=== PATIENT | male | born 1940 | race Caucasian/White ===

== ENCOUNTER 2017-11-11 15:12 | Inpatient (IN) | payer OTHER ==
[~2017-11-11] VITALS: Ht 172.7 cm; Wt 83.9 kg
[2017-11-11 16:21] VITALS: BP_SYST 131
[2017-11-11] MEDS ORDERED: MEMA10TA PO (16:43)
[2017-11-11] MEDS ORDERED: FAMO40TA71 PO (16:43)
[2017-11-11 16:50] VITALS: BP_SYST 131
[2017-11-11 19:11] LABS: EOSINOPHILS # (AUTO) 0.2 K/uL (0.0-0.4); MEAN CORPUSCULAR HEMOGLOBIN 32 pg (27-31); MEAN CORPUSCULAR HGB CONC 33 % (32-36); RED CELL DISTRIBUTION WIDTH 14.4 % (9.0-15.0)
[2017-11-11 19:13] LABS: BASOPHILS # (AUTO) 0.3 K/uL (0.0-0.2); BASOPHILS % (AUTO) 3.1 % (0.0-2.0); EOSINOPHILS % (AUTO) 2.6 % (0.0-4.0); HEMATOCRIT 42.2 % (36-54); LYMPHOCYTES # (AUTO) 1.4 K/uL (1.0-5.5); LYMPHOCYTES % (AUTO) 17.2 % (20.5-51.5); MEAN CORPUSCULAR VOLUME 96 fL (79.0-98.0); MONOCYTES # (AUTO) 0.7 K/uL (0.0-1.0); MONOCYTES % (AUTO) 8.7 % (1.7-9.3); NEUTROPHILS # (AUTO) 5.5 K/uL (1.8-7.7); NEUTROPHILS % (AUTO) 68.4 % (40.0-70.0); PLATELET COUNT (AUTO) 160 K/uL (130-430); RED BLOOD CELL COUNT(AUTO) 4.38 MIL/uL (4.2-6.2); WHITE BLOOD COUNT (AUTO) 8.1 K/uL (4.8-10.8)
[2017-11-11 19:28] LABS: ANION GAP 8 (5-15); CALCIUM 8.8 mg/dL (8.4-11.0); CHLORIDE 108 mmol/L (98-107); CREATININE 1.06 mg/dL (0.55-1.30); GLUCOSE 108 mg/dL (70-99); POTASSIUM 3.9 mmol/L (3.5-5.1); SODIUM SERUM 141 mmol/L (136-145); UREA NITROGEN, BLOOD 17 mg/dL (8-21)
[2017-11-11] MEDS ORDERED: LevALBUTEROL HCL 1.25 MG/0.5 ML *CONC.* VIAL.NEB (XOPENEX CONC.) INH PRN (19:30)
[2017-11-11 19:33] LABS: ALANINE AMINOTRANSFERASE 30 U/L (12-78); ALBUMIN 3.4 g/dL (3.4-4.8); ASPARTATE AMINOTRANSFERASE 27 U/L (10-37); TOTAL BILIRUBIN 1.1 mg/dL (0.0-1.0)
[2017-11-11] MEDS ORDERED: ACETAMINOPHEN 325 MG TABLET PO PRN (19:45)
[2017-11-11 20:00] VITALS: BP_SYST 133
[2017-11-11] MEDS: cefTRIAXone 1 GM in D5W 50 ML IV SCH (20:25)
[2017-11-11] MEDS: D5/0.45 NS 1,000 ML IV SCH (20:25)
[2017-11-11] MEDS: MEMANTINE HCL 5 MG TABLET PO SCH (20:34)
[2017-11-11] MEDS: AZITHROMYCIN 500 MG in NS 250 ML IV SCH (21:27)
[2017-11-11] MEDS: LevALBUTEROL HCL 1.25 MG/0.5 ML *CONC.* VIAL.NEB (XOPENEX CONC.) INH SCH (23:07)
[2017-11-11 23:15] VITALS: BP_SYST 131
[2017-11-12 01:05] VITALS: BP_SYST 136
[2017-11-12] MEDS: METOPROLOL TARTRATE 50 MG TABLET PO SCH ×3 (02:56→20:45)
[2017-11-12] MEDS ORDERED: METOPROLOL TARTRATE 50 MG TABLET ONE (02:59)
[2017-11-12] MEDS: LevALBUTEROL HCL 1.25 MG/0.5 ML *CONC.* VIAL.NEB (XOPENEX CONC.) INH SCH ×3 (07:27→22:50)
[2017-11-12 07:50] VITALS: BP_SYST 113
[2017-11-12] MEDS: D5/0.45 NS 1,000 ML IV SCH (09:30)
[2017-11-12] MEDS: FAMOTIDINE 20 MG TABLET PO SCH (09:32)
[2017-11-12] MEDS: MEMANTINE HCL 5 MG TABLET PO SCH ×2 (09:32→20:45)
[2017-11-12] MEDS: ENOXAPARIN SODIUM 40 MG/0.4 ML SYRINGE SUBCUT SCH (09:39)
[2017-11-12 12:00] VITALS: BP_SYST 128
[2017-11-12 16:47] VITALS: BP_SYST 130
[2017-11-12] MEDS: cefTRIAXone 1 GM in D5W 50 ML IV SCH (20:45)
[2017-11-12] MEDS: AZITHROMYCIN 500 MG in NS 250 ML IV SCH (22:21)
[2017-11-13 00:41] VITALS: BP_SYST 119
[2017-11-13] MEDS: D5/0.45 NS 1,000 ML IV SCH ×2 (02:44→15:21)
[2017-11-13] MEDS: LevALBUTEROL HCL 1.25 MG/0.5 ML *CONC.* VIAL.NEB (XOPENEX CONC.) INH SCH ×3 (07:23→23:27)
[2017-11-13 08:00] VITALS: BP_SYST 138
[2017-11-13] MEDS: FAMOTIDINE 20 MG TABLET PO SCH (09:05)
[2017-11-13] MEDS: METOPROLOL TARTRATE 50 MG TABLET PO SCH ×2 (09:05→20:36)
[2017-11-13] MEDS: MEMANTINE HCL 5 MG TABLET PO SCH ×2 (09:05→20:36)
[2017-11-13] MEDS: ENOXAPARIN SODIUM 40 MG/0.4 ML SYRINGE SUBCUT SCH (09:09)
[2017-11-13 12:37] VITALS: BP_SYST 144
[2017-11-13 16:25] VITALS: BP_SYST 141
[2017-11-13] MEDS: cefTRIAXone 1 GM in D5W 50 ML IV SCH (20:37)
[2017-11-13] MEDS: AZITHROMYCIN 500 MG in NS 250 ML IV SCH (20:40)
[2017-11-13 23:30] VITALS: BP_SYST 135
[2017-11-14] MEDS: D5/0.45 NS 1,000 ML IV SCH ×2 (04:07→14:10)
[2017-11-14 07:08] LABS: BASOPHILS % (AUTO) 0.6 % (0.0-2.0); EOSINOPHILS # (AUTO) 0.4 K/uL (0.0-0.4); HEMATOCRIT 37.6 % (36-54); HEMOGLOBIN 12.8 g/dL (14.0-18.0); LYMPHOCYTES # (AUTO) 1.5 K/uL (1.0-5.5); LYMPHOCYTES % (AUTO) 19.7 % (20.5-51.5); MEAN CORPUSCULAR HEMOGLOBIN 33 pg (27-31); MEAN CORPUSCULAR HGB CONC 34 % (32-36); MEAN CORPUSCULAR VOLUME 96 fL (79.0-98.0); MONOCYTES # (AUTO) 0.7 K/uL (0.0-1.0); MONOCYTES % (AUTO) 9.2 % (1.7-9.3); NEUTROPHILS # (AUTO) 4.8 K/uL (1.8-7.7); NEUTROPHILS % (AUTO) 64.5 % (40.0-70.0); PLATELET COUNT (AUTO) 156 K/uL (130-430); RED BLOOD CELL COUNT(AUTO) 3.92 MIL/uL (4.2-6.2); RED CELL DISTRIBUTION WIDTH 14.1 % (9.0-15.0); WHITE BLOOD COUNT (AUTO) 7.4 K/uL (4.8-10.8)
[2017-11-14 07:30] LABS: ALANINE AMINOTRANSFERASE 19 U/L (12-78); ALBUMIN 2.4 g/dL (3.4-4.8); ANION GAP 6 (5-15); ASPARTATE AMINOTRANSFERASE 16 U/L (10-37); CALCIUM 8.1 mg/dL (8.4-11.0); CHLORIDE 106 mmol/L (98-107); GLUCOSE 95 mg/dL (70-99); POTASSIUM 3.3 mmol/L (3.5-5.1); SODIUM SERUM 138 mmol/L (136-145); TOTAL BILIRUBIN 0.8 mg/dL (0.0-1.0); UREA NITROGEN, BLOOD 8 mg/dL (8-21)
[2017-11-14] MEDS: LevALBUTEROL HCL 1.25 MG/0.5 ML *CONC.* VIAL.NEB (XOPENEX CONC.) INH SCH ×2 (07:37→17:01)
[2017-11-14 08:00] VITALS: BP_SYST 115
[2017-11-14] MEDS: MEMANTINE HCL 5 MG TABLET PO SCH (09:19)
[2017-11-14] MEDS: FAMOTIDINE 20 MG TABLET PO SCH (09:19)
[2017-11-14] MEDS: METOPROLOL TARTRATE 50 MG TABLET PO SCH (09:20)
[2017-11-14] MEDS: ENOXAPARIN SODIUM 40 MG/0.4 ML SYRINGE SUBCUT SCH (09:20)
[2017-11-14 12:58] VITALS: BP_SYST 117
[2017-11-14 15:03] VITALS: BP_SYST 117
[2017-11-14 16:41] VITALS: BP_SYST 117
== END 2017-11-14 18:43 | DRG 190 ==
LOC: SED 15:12 → EDSTATUS 16:39 → SMU 16:41 → STU 16:51
PROVIDERS: ADMIT Family Medicine; ATTEND Family Medicine
DX: J44.0 Chronic obstructive pulmonary disease with (acute) lower respiratory infection (principal); J18.9 Pneumonia, unspecified organism; M19.90 Unspecified osteoarthritis, unspecified site; I27.20 Pulmonary hypertension, unspecified; K21.9 Gastro-esophageal reflux disease without esophagitis; J44.1 Chronic obstructive pulmonary disease with (acute) exacerbation; F03.90 Unspecified dementia, unspecified severity, without behavioral disturbance, psychotic disturbance, mood disturbance, and anxiety; Z86.73 Personal history of transient ischemic attack (TIA), and cerebral infarction without residual deficits; Z87.891 Personal history of nicotine dependence
CPT/HCPCS: 36415; 70450-TC; 71045; 80053; 85025; 93005; 93306; 94640; 94760; 97110-GP; 97530-GP; J0456; J0696; J1650; J7050; J7060; J7612

== ENCOUNTER 2018-08-04 13:23 | Inpatient (IN) | payer OTHER, MEDICAID ==
[~2018-08-04] VITALS: Ht 182.9 cm; Wt 89.8 kg
[2018-08-04] VITALS (10 sets, daily range): BP systolic 94–126
[~2018-08-04 13:23] MED LIST: FAMO40TA71 PO; MEMA10TA PO
[2018-08-04] MEDS ORDERED: NS 1000 ML IV.SOLN IV ONE (13:30)
[2018-08-04] MEDS ORDERED: IPRATROPIUM/ALBUTEROL SULFATE 3 ML AMPUL.NEB (DUONEB) INH ONE (13:30)
[2018-08-04] MEDS ORDERED: DILTIAZEM HCL 25 MG/5 ML VIAL IVP ONE (13:30)
[2018-08-04] MEDS ORDERED: ADENOSINE 6MG/2ML VIAL IVP ONE (13:45)
[2018-08-04] MEDS ORDERED: RISP1TAB27 GT (13:55)
[2018-08-04] MEDS ORDERED: DOCU-144 GT (13:55)
[2018-08-04] MEDS ORDERED: LIP40 GT (13:55)
[2018-08-04] MEDS ORDERED: ASCO500W7 GT (13:55)
[2018-08-04] MEDS ORDERED: MULT-1100 GT (13:55)
[2018-08-04] MEDS ORDERED: ZINC220T GT (13:55)
[2018-08-04] MEDS ORDERED: METO25TA3 GT (13:55)
[2018-08-04] MEDS ORDERED: HYT1 GT (13:55)
[2018-08-04] MEDS ORDERED: ASA81 GT (13:55)
[2018-08-04] MEDS ORDERED: OLAN2.5T29 GT ×2 (13:55→16:00)
[2018-08-04] MEDS ORDERED: L. A1CAP12 GT (13:55)
[2018-08-04] MEDS ORDERED: VANCOMYCIN HCL 1,000 MG in NS 250 ML IV ONE (14:15)
[2018-08-04] MEDS ORDERED: PIPERACILLIN/TAZO 3.375 GM in NS 50 ML IV ONE (14:15)
[2018-08-04] MEDS ORDERED: NACL 0.9% 1,000 ML IV ONE ×2 (14:15→15:15)
[2018-08-04] MEDS ORDERED: PIPERACILLIN/TAZOBACTAM 3.375 GM/VIAL (ZOSYN) IV ONE ×2 (14:27→14:52)
[2018-08-04] MEDS ORDERED: VANCOMYCIN HCL 1000 MG/VIAL IV ONE ×2 (14:27→14:52)
[2018-08-04 14:42] LABS: HEMATOCRIT 32.3 % (36-54); HEMOGLOBIN 10.6 g/dL (14.0-18.0); MEAN CORPUSCULAR HEMOGLOBIN 32 pg (27-31); MEAN CORPUSCULAR HGB CONC 33 % (32-36); MEAN CORPUSCULAR VOLUME 96 fL (79.0-98.0); PLATELET COUNT (AUTO) 135 K/uL (130-430); RED BLOOD CELL COUNT(AUTO) 3.36 MIL/uL (4.2-6.2); WHITE BLOOD COUNT (AUTO) 19.5 K/uL (4.8-10.8)
[2018-08-04 14:45] LABS: ANION GAP 9 (5-15); CHLORIDE 102 mmol/L (98-107); CREATININE 1.18 mg/dL (0.55-1.30); GLUCOSE 106 mg/dL (70-99); POTASSIUM 3.9 mmol/L (3.5-5.1); SODIUM SERUM 135 mmol/L (136-145); UREA NITROGEN, BLOOD 32 mg/dL (8-21)
[2018-08-04 14:51] LABS: ALANINE AMINOTRANSFERASE 74 U/L (12-78); ALBUMIN 1.7 g/dL (3.4-4.8); ASPARTATE AMINOTRANSFERASE 48 U/L (10-37); TOTAL BILIRUBIN 0.6 mg/dL (0.0-1.0)
[2018-08-04] MEDS ORDERED: ACETAMINOPHEN 650 MG/20.3 ML UDC GT ONE (15:00)
[2018-08-04 15:14] LABS: BLOOD, URINE 2+ (NEGATIVE); CLARITY/URINE HAZY (CLEAR); COLOR,URINE YELLOW (YELLOW); GLUCOSE,URINE NEGATIVE (NEGATIVE); KETONES,URINE TRACE (NEGATIVE); LEUKOCYTE ESTERASE ,URINE TRACE (NEGATIVE); NITRITE, URINE NEGATIVE (NEGATIVE); PH,URINE 6.5 (5.0-8.0); PROTEIN URINE 2+ (NEGATIVE)
[2018-08-04 15:22] LABS: ATYPICAL LYMPHOCYTES % 1 % (0-0); BAND % (MANUAL) 11 % (0-6); BASOPHILS % (MANUAL) 0 % (0-2); EOSINOPHILS % (MANUAL) 0 % (0-7); LYMPHOCYTES % (MANUAL) 6 % (20-46); MONOCYTES % (MANUAL) 9 % (0-11)
[2018-08-04] MEDS ORDERED: NOREPINEPHRINE BITARTRATE 4 MG in NS 246 ML IV ONE (15:30)
[2018-08-04 15:31] LABS: BACTERIA,URINE FEW /HPF (None Seen); BILIRUBIN,URINE 1+ (NEGATIVE)
[2018-08-04 15:32] LABS: COARSE GRANULAR CASTS,URINE 0-10 /LPF (None Seen); MUCUS,URINE None Seen /LPF (None Seen)
[2018-08-04] MEDS ORDERED: NOREPINEPHRINE 4 MG/4 ML VIAL IV ONE (15:32)
[2018-08-04] MEDS ORDERED: METO25TA6 GT (16:00)
[2018-08-04] MEDS ORDERED: PIPERACILLIN/TAZO 3.375 GM in NS 50 ML IV SCH (18:00)
[2018-08-04] MEDS ORDERED: LevALBUTEROL HCL 1.25 MG/0.5 ML *CONC.* VIAL.NEB (XOPENEX CONC.) INH PRN (18:15)
[2018-08-04] MEDS ORDERED: ACETAMINOPHEN 650 MG/20.3 ML UDC GT PRN (18:15)
[2018-08-04] MEDS: methylPREDNISolone SOD SUCC/PF 62.5 MG/ML VIAL IVP SCH (18:23)
[2018-08-04] MEDS: D5NS 1,000 ML IV SCH ×2 (18:25→23:00)
[2018-08-04] MEDS: LevALBUTEROL HCL 1.25 MG/0.5 ML *CONC.* VIAL.NEB (XOPENEX CONC.) INH SCH (19:46)
[2018-08-04] MEDS: NOREPINEPHRINE BITARTRATE 4 MG in NS 246 ML IV SCH ×2 (20:17→20:31)
[2018-08-04] MEDS: DOCUSATE SODIUM 100 MG/10 ML UDC GT SCH (20:33)
[2018-08-04] MEDS: ATORVASTATIN 20 MG TABLET GT SCH (20:34)
[2018-08-04] MEDS: ASCORBIC ACID 500 MG TABLET GT SCH (20:35)
[2018-08-04] MEDS: METOPROLOL TARTRATE 25 MG TABLET GT SCH (20:35)
[2018-08-04] MEDS: ENOXAPARIN SODIUM 40 MG/0.4 ML SYRINGE SUBCUT SCH (20:36)
[2018-08-04] MEDS ORDERED: OLANZapine 2.5 MG TABLET GT SCH ×2 (21:00)
[2018-08-04] MEDS ORDERED: TERAZOSIN HCL 1 MG CAPSULE (HYTRIN) GT SCH (21:00)
[2018-08-04] MEDS: ALBUMIN HUMAN 25% 50 ML IV SCH (23:01)
[2018-08-04] MEDS: PIPERACILLIN/TAZO 3.375 GM in NS 50 ML IV SCH (23:02)
[2018-08-05] VITALS (21 sets, daily range): BP systolic 88–117
[2018-08-05] MEDS: methylPREDNISolone SOD SUCC/PF 62.5 MG/ML VIAL IVP SCH ×2 (00:03→05:41)
[2018-08-05] MEDS: LevALBUTEROL HCL 1.25 MG/0.5 ML *CONC.* VIAL.NEB (XOPENEX CONC.) INH SCH ×4 (00:45→19:45)
[2018-08-05] MEDS: NOREPINEPHRINE BITARTRATE 4 MG in NS 246 ML IV SCH ×3 (01:58→21:10)
[2018-08-05] MEDS: VANCOMYCIN HCL 1,000 MG in NS 250 ML IV SCH ×2 (02:36→14:11)
[2018-08-05] MEDS: ALBUMIN HUMAN 25% 50 ML IV SCH ×2 (03:58→08:17)
[2018-08-05] MEDS: PIPERACILLIN/TAZO 3.375 GM in NS 50 ML IV SCH ×3 (05:41→21:11)
[2018-08-05 05:56] LABS: HEMOGLOBIN 9.2 g/dL (14.0-18.0); MEAN CORPUSCULAR HEMOGLOBIN 31 pg (27-31); MEAN CORPUSCULAR HGB CONC 33 % (32-36); MEAN CORPUSCULAR VOLUME 96 fL (79.0-98.0); PLATELET COUNT (AUTO) 134 K/uL (130-430); RED BLOOD CELL COUNT(AUTO) 2.93 MIL/uL (4.2-6.2); RED CELL DISTRIBUTION WIDTH 18.7 % (9.0-15.0); WHITE BLOOD COUNT (AUTO) 22.3 K/uL (4.8-10.8)
[2018-08-05] MEDS ORDERED: D5NS 1,000 ML IV SCH (06:00)
[2018-08-05 06:29] LABS: BAND % (MANUAL) 4 % (0-6); BASOPHILS % (MANUAL) 0 % (0-2); EOSINOPHILS % (MANUAL) 0 % (0-7); LYMPHOCYTES % (MANUAL) 5 % (20-46); MONOCYTES % (MANUAL) 0 % (0-11)
[2018-08-05 06:42] LABS: ANION GAP 12 (5-15); CALCIUM 7.5 mg/dL (8.4-11.0); CHLORIDE 109 mmol/L (98-107); CREATININE 0.77 mg/dL (0.55-1.30); GLUCOSE 206 mg/dL (70-99); POTASSIUM 3.2 mmol/L (3.5-5.1); SODIUM SERUM 143 mmol/L (136-145); UREA NITROGEN, BLOOD 22 mg/dL (8-21)
[2018-08-05] MEDS: FAMOTIDINE 20 MG TABLET GT SCH ×2 (08:11→21:10)
[2018-08-05] MEDS: ASCORBIC ACID 500 MG TABLET GT SCH ×2 (08:11→21:10)
[2018-08-05] MEDS: ASPIRIN 81 MG TAB.CHEW GT SCH (08:11)
[2018-08-05] MEDS: LACTOBACILLUS RHAMNOSUS GG 1 CAP CAPSULE GT SCH (08:11)
[2018-08-05] MEDS: METOPROLOL TARTRATE 25 MG TABLET GT SCH ×2 (08:14→21:00)
[2018-08-05] MEDS: DOCUSATE SODIUM 100 MG/10 ML UDC GT SCH ×2 (08:15→21:10)
[2018-08-05] MEDS: MULTIVIT-MINERALS/FERROUS GLUC 15 ML UDC GT SCH (08:17)
[2018-08-05] MEDS ORDERED: POTASSIUM CHLORIDE 20 MEQ/PKT PACKET PO ONE (10:00)
[2018-08-05] MEDS: NACL 0.9% 1,000 ML IV SCH ×2 (10:32→21:17)
[2018-08-05] MEDS: HYDROCORTISONE SOD SUCC 100 MG/2 ML VIAL IVP SCH ×2 (14:05→21:10)
[2018-08-05] MEDS: AZITHROMYCIN 500 MG in NS 250 ML IV SCH (15:07)
[2018-08-05] MEDS: IPRATROPIUM BROM 0.5 MG/2.5 ML VIAL.NEB (ATROVENT) INH SCH (19:45)
[2018-08-05] MEDS: ATORVASTATIN 20 MG TABLET GT SCH (21:10)
[2018-08-05] MEDS: ENOXAPARIN SODIUM 40 MG/0.4 ML SYRINGE SUBCUT SCH (21:15)
[2018-08-06] VITALS (24 sets, daily range): BP systolic 89–128
[2018-08-06] MEDS: LevALBUTEROL HCL 1.25 MG/0.5 ML *CONC.* VIAL.NEB (XOPENEX CONC.) INH SCH ×4 (00:40→20:11)
[2018-08-06] MEDS: IPRATROPIUM BROM 0.5 MG/2.5 ML VIAL.NEB (ATROVENT) INH SCH ×4 (00:40→20:13)
[2018-08-06] MEDS: PIPERACILLIN/TAZO 3.375 GM in NS 50 ML IV SCH ×3 (05:05→21:40)
[2018-08-06] MEDS: HYDROCORTISONE SOD SUCC 100 MG/2 ML VIAL IVP SCH ×3 (05:06→21:40)
[2018-08-06 05:09] LABS: BASOPHILS % (AUTO) 0.1 % (0.0-2.0); HEMATOCRIT 26.9 % (36-54); HEMOGLOBIN 8.8 g/dL (14.0-18.0); LYMPHOCYTES # (AUTO) 1.1 K/uL (1.0-5.5); LYMPHOCYTES % (AUTO) 4.3 % (20.5-51.5); MEAN CORPUSCULAR HEMOGLOBIN 32 pg (27-31); MEAN CORPUSCULAR HGB CONC 33 % (32-36); MEAN CORPUSCULAR VOLUME 96 fL (79.0-98.0); MONOCYTES # (AUTO) 0.9 K/uL (0.0-1.0); MONOCYTES % (AUTO) 3.6 % (1.7-9.3); NEUTROPHILS # (AUTO) 23.9 K/uL (1.8-7.7); PLATELET COUNT (AUTO) 145 K/uL (130-430); RED CELL DISTRIBUTION WIDTH 18.5 % (9.0-15.0)
[2018-08-06 05:22] LABS: ANION GAP 13 (5-15); CALCIUM 7.9 mg/dL (8.4-11.0); CHLORIDE 112 mmol/L (98-107); CREATININE 0.77 mg/dL (0.55-1.30); GLUCOSE 148 mg/dL (70-99); SODIUM SERUM 145 mmol/L (136-145); UREA NITROGEN, BLOOD 26 mg/dL (8-21)
[2018-08-06 05:32] LABS: ALANINE AMINOTRANSFERASE 55 U/L (12-78); ALBUMIN 1.8 g/dL (3.4-4.8); ASPARTATE AMINOTRANSFERASE 21 U/L (10-37); PHOSPHORUS 2.1 mg/dL (2.7-4.5); TOTAL BILIRUBIN 0.4 mg/dL (0.0-1.0)
[2018-08-06 05:37] LABS: POTASSIUM 2.9 mmol/L (3.5-5.1)
[2018-08-06] MEDS ORDERED: POTASSIUM CHLORIDE 20 MEQ/PKT PACKET PO ONE ×2 (06:15→10:00)
[2018-08-06] MEDS ORDERED: POTASSIUM CHLORIDE 40 MEQ in NS 250 ML IV ONE (06:30)
[2018-08-06] MEDS ORDERED: KCL 40 mEq in 100 mL (PREMIX) 0 ML IV ONE (06:46)
[2018-08-06] MEDS ORDERED: KCL 20 mEq in 100 mL (PREMIX) 100 ML IV SCH (07:00)
[2018-08-06] MEDS: KCL 20 mEq in 100 mL (PREMIX) 100 ML IV SCH ×2 (08:28→10:29)
[2018-08-06] MEDS: FAMOTIDINE 20 MG TABLET GT SCH ×2 (08:34→21:40)
[2018-08-06] MEDS: ASPIRIN 81 MG TAB.CHEW GT SCH (08:35)
[2018-08-06] MEDS: LACTOBACILLUS RHAMNOSUS GG 1 CAP CAPSULE GT SCH (08:35)
[2018-08-06] MEDS: ASCORBIC ACID 500 MG TABLET GT SCH ×2 (08:35→21:40)
[2018-08-06] MEDS: METOPROLOL TARTRATE 25 MG TABLET GT SCH ×2 (08:35→21:00)
[2018-08-06] MEDS: DOCUSATE SODIUM 100 MG/10 ML UDC GT SCH ×2 (08:35→21:40)
[2018-08-06] MEDS: MULTIVIT-MINERALS/FERROUS GLUC 15 ML UDC GT SCH (08:35)
[2018-08-06] MEDS: NOREPINEPHRINE BITARTRATE 4 MG in NS 246 ML IV SCH ×2 (08:54→21:45)
[2018-08-06] MEDS ORDERED: POTASSIUM CHLORIDE 40 MEQ in 0.45% NS 250 ML IV ONE (10:00)
[2018-08-06] MEDS ORDERED: FUROSEMIDE 20 MG/2 ML VIAL IVP ONE (10:00)
[2018-08-06] MEDS: 0.45% NACL 1,000 ML IV SCH (11:57)
[2018-08-06] MEDS: AZITHROMYCIN 500 MG in NS 250 ML IV SCH (14:51)
[2018-08-06] MEDS ORDERED: HALOPERIDOL LACTATE 5 MG/ML VIAL IM SCH (21:30)
[2018-08-06] MEDS: ATORVASTATIN 20 MG TABLET GT SCH (21:40)
[2018-08-06] MEDS: ENOXAPARIN SODIUM 40 MG/0.4 ML SYRINGE SUBCUT SCH (21:42)
[2018-08-07] VITALS (25 sets, daily range): BP systolic 91–173
[2018-08-07] MEDS: IPRATROPIUM BROM 0.5 MG/2.5 ML VIAL.NEB (ATROVENT) INH SCH ×4 (00:49→19:33)
[2018-08-07] MEDS: LevALBUTEROL HCL 1.25 MG/0.5 ML *CONC.* VIAL.NEB (XOPENEX CONC.) INH SCH ×4 (00:49→19:33)
[2018-08-07] MEDS: 0.45% NACL 1,000 ML IV SCH ×2 (05:38→15:05)
[2018-08-07] MEDS: PIPERACILLIN/TAZO 3.375 GM in NS 50 ML IV SCH ×3 (05:38→22:47)
[2018-08-07] MEDS: HYDROCORTISONE SOD SUCC 100 MG/2 ML VIAL IVP SCH ×2 (05:39→22:47)
[2018-08-07 05:48] LABS: BASOPHILS % (AUTO) 0.1 % (0.0-2.0); HEMATOCRIT 26.7 % (36-54); HEMOGLOBIN 8.6 g/dL (14.0-18.0); LYMPHOCYTES # (AUTO) 1.2 K/uL (1.0-5.5); LYMPHOCYTES % (AUTO) 6.6 % (20.5-51.5); MEAN CORPUSCULAR HEMOGLOBIN 31 pg (27-31); MEAN CORPUSCULAR HGB CONC 32 % (32-36); MEAN CORPUSCULAR VOLUME 95 fL (79.0-98.0); MONOCYTES # (AUTO) 0.5 K/uL (0.0-1.0); MONOCYTES % (AUTO) 2.7 % (1.7-9.3); NEUTROPHILS # (AUTO) 16.7 K/uL (1.8-7.7); NEUTROPHILS % (AUTO) 90.6 % (40.0-70.0); PLATELET COUNT (AUTO) 121 K/uL (130-430); RED CELL DISTRIBUTION WIDTH 18.5 % (9.0-15.0); WHITE BLOOD COUNT (AUTO) 18.4 K/uL (4.8-10.8)
[2018-08-07 06:05] LABS: ANION GAP 11 (5-15); CALCIUM 7.7 mg/dL (8.4-11.0); CHLORIDE 113 mmol/L (98-107); CREATININE 0.74 mg/dL (0.55-1.30); GLUCOSE 115 mg/dL (70-99); SODIUM SERUM 145 mmol/L (136-145); UREA NITROGEN, BLOOD 29 mg/dL (8-21)
[2018-08-07 06:12] LABS: ALANINE AMINOTRANSFERASE 55 U/L (12-78); ALBUMIN 1.8 g/dL (3.4-4.8); ASPARTATE AMINOTRANSFERASE 29 U/L (10-37); TOTAL BILIRUBIN 0.4 mg/dL (0.0-1.0)
[2018-08-07] MEDS: METOPROLOL TARTRATE 25 MG TABLET GT SCH ×2 (09:00→20:35)
[2018-08-07] MEDS ORDERED: BALSAM PERU/CASTOR OIL 60 GM OINT...G. TP SCH (09:00)
[2018-08-07] MEDS: ASPIRIN 81 MG TAB.CHEW GT SCH (09:25)
[2018-08-07] MEDS: MULTIVIT-MINERALS/FERROUS GLUC 15 ML UDC GT SCH (09:25)
[2018-08-07] MEDS: DOCUSATE SODIUM 100 MG/10 ML UDC GT SCH ×2 (09:25→20:34)
[2018-08-07] MEDS: ASCORBIC ACID 500 MG TABLET GT SCH ×2 (09:25→20:35)
[2018-08-07] MEDS: LACTOBACILLUS RHAMNOSUS GG 1 CAP CAPSULE GT SCH (09:25)
[2018-08-07] MEDS: FAMOTIDINE 20 MG TABLET GT SCH ×2 (09:25→20:34)
[2018-08-07] MEDS: BALSAM PERU/CASTOR OIL 60 GM OINT...G. TP SCH (09:26)
[2018-08-07] MEDS ORDERED: NAPH,MB-DB/K PH,MBDB 250 MG TAB GT ONE (12:45)
[2018-08-07] MEDS ORDERED: FUROSEMIDE 20 MG/2 ML VIAL IVP ONE (14:45)
[2018-08-07] MEDS: POTASSIUM CHLORIDE 20 MEQ/PKT PACKET GT SCH ×3 (15:05→22:48)
[2018-08-07] MEDS: AZITHROMYCIN 500 MG in NS 250 ML IV SCH (15:13)
[2018-08-07] MEDS: AMIKACIN SULFATE IV SCH (18:02)
[2018-08-07] MEDS: D5W IV SCH (18:02)
[2018-08-07] MEDS: ATORVASTATIN 20 MG TABLET GT SCH (20:34)
[2018-08-07] MEDS: ENOXAPARIN SODIUM 40 MG/0.4 ML SYRINGE SUBCUT SCH (20:36)
[2018-08-07] MEDS: QUEtiapine FUMARATE 25 MG TABLET GT SCH (20:37)
[2018-08-07] MEDS ORDERED: QUEtiapine FUMARATE 25 MG TABLET ONE (20:42)
[2018-08-08] VITALS (24 sets, daily range): BP systolic 92–147
[2018-08-08] MEDS: IPRATROPIUM BROM 0.5 MG/2.5 ML VIAL.NEB (ATROVENT) INH SCH ×4 (01:37→19:55)
[2018-08-08] MEDS: LevALBUTEROL HCL 1.25 MG/0.5 ML *CONC.* VIAL.NEB (XOPENEX CONC.) INH SCH ×4 (01:37→19:55)
[2018-08-08] MEDS ORDERED: LevALBUTEROL HCL 1.25 MG/0.5 ML *CONC.* VIAL.NEB (XOPENEX CONC.) INH ONE (01:45)
[2018-08-08] MEDS ORDERED: IPRATROPIUM BROM 0.5 MG/2.5 ML VIAL.NEB (ATROVENT) INH ONE (01:46)
[2018-08-08] MEDS: D5W IV SCH ×2 (05:20→17:13)
[2018-08-08] MEDS: AMIKACIN SULFATE IV SCH ×2 (05:20→17:13)
[2018-08-08] MEDS: HYDROCORTISONE SOD SUCC 100 MG/2 ML VIAL IVP SCH ×3 (05:59→21:34)
[2018-08-08] MEDS: PIPERACILLIN/TAZO 3.375 GM in NS 50 ML IV SCH ×3 (05:59→21:35)
[2018-08-08 06:26] LABS: BASOPHILS % (AUTO) 0.2 % (0.0-2.0); EOSINOPHILS % (AUTO) 0.3 % (0.0-4.0); HEMOGLOBIN 8.5 g/dL (14.0-18.0); LYMPHOCYTES # (AUTO) 1.5 K/uL (1.0-5.5); LYMPHOCYTES % (AUTO) 16.4 % (20.5-51.5); MEAN CORPUSCULAR HEMOGLOBIN 32 pg (27-31); MEAN CORPUSCULAR HGB CONC 33 % (32-36); MEAN CORPUSCULAR VOLUME 97 fL (79.0-98.0); MONOCYTES # (AUTO) 0.4 K/uL (0.0-1.0); MONOCYTES % (AUTO) 4.2 % (1.7-9.3); NEUTROPHILS # (AUTO) 7.4 K/uL (1.8-7.7); NEUTROPHILS % (AUTO) 78.9 % (40.0-70.0); PLATELET COUNT (AUTO) 117 K/uL (130-430); RED BLOOD CELL COUNT(AUTO) 2.69 MIL/uL (4.2-6.2); RED CELL DISTRIBUTION WIDTH 18.5 % (9.0-15.0); WHITE BLOOD COUNT (AUTO) 9.4 K/uL (4.8-10.8)
[2018-08-08 06:29] LABS: ANION GAP 8 (5-15); CALCIUM 7.6 mg/dL (8.4-11.0); CHLORIDE 114 mmol/L (98-107); CREATININE 0.66 mg/dL (0.55-1.30); GLUCOSE 87 mg/dL (70-99); SODIUM SERUM 143 mmol/L (136-145); UREA NITROGEN, BLOOD 24 mg/dL (8-21)
[2018-08-08] MEDS: METOPROLOL TARTRATE 25 MG TABLET GT SCH ×2 (09:00→20:32)
[2018-08-08] MEDS: FUROSEMIDE 20 MG/2 ML VIAL IVP SCH (09:22)
[2018-08-08] MEDS: ASCORBIC ACID 500 MG TABLET GT SCH ×2 (09:22→20:31)
[2018-08-08] MEDS: LACTOBACILLUS RHAMNOSUS GG 1 CAP CAPSULE GT SCH (09:22)
[2018-08-08] MEDS: MULTIVIT-MINERALS/FERROUS GLUC 15 ML UDC GT SCH (09:22)
[2018-08-08] MEDS: FAMOTIDINE 20 MG TABLET GT SCH ×2 (09:22→20:32)
[2018-08-08] MEDS: DOCUSATE SODIUM 100 MG/10 ML UDC GT SCH ×2 (09:22→20:32)
[2018-08-08] MEDS: NAPH,MB-DB/K PH,MBDB 250 MG TAB GT SCH (09:22)
[2018-08-08] MEDS: ASPIRIN 81 MG TAB.CHEW GT SCH (09:23)
[2018-08-08] MEDS: BALSAM PERU/CASTOR OIL 60 GM OINT...G. TP SCH (09:23)
[2018-08-08] MEDS: 0.45% NACL 1,000 ML IV SCH (09:48)
[2018-08-08] MEDS: QUEtiapine FUMARATE 25 MG TABLET GT SCH ×2 (09:48→20:31)
[2018-08-08] MEDS: ATORVASTATIN 20 MG TABLET GT SCH (20:32)
[2018-08-08] MEDS: ENOXAPARIN SODIUM 40 MG/0.4 ML SYRINGE SUBCUT SCH (20:33)
[2018-08-09] VITALS (24 sets, daily range): BP systolic 114–141
[2018-08-09] MEDS: LevALBUTEROL HCL 1.25 MG/0.5 ML *CONC.* VIAL.NEB (XOPENEX CONC.) INH SCH ×4 (01:06→19:39)
[2018-08-09] MEDS: IPRATROPIUM BROM 0.5 MG/2.5 ML VIAL.NEB (ATROVENT) INH SCH ×4 (01:06→19:39)
[2018-08-09] MEDS: PIPERACILLIN/TAZO 3.375 GM in NS 50 ML IV SCH (05:14)
[2018-08-09] MEDS: HYDROCORTISONE SOD SUCC 100 MG/2 ML VIAL IVP SCH ×3 (05:14→21:36)
[2018-08-09] MEDS: AMIKACIN SULFATE IV SCH ×2 (05:59→17:00)
[2018-08-09] MEDS: D5W IV SCH ×2 (05:59→17:00)
[2018-08-09 06:28] LABS: BASOPHILS % (AUTO) 0.4 % (0.0-2.0); EOSINOPHILS # (AUTO) 0.1 K/uL (0.0-0.4); EOSINOPHILS % (AUTO) 1.5 % (0.0-4.0); HEMATOCRIT 27.3 % (36-54); HEMOGLOBIN 9.1 g/dL (14.0-18.0); LYMPHOCYTES # (AUTO) 1.7 K/uL (1.0-5.5); LYMPHOCYTES % (AUTO) 23.6 % (20.5-51.5); MEAN CORPUSCULAR HEMOGLOBIN 32 pg (27-31); MEAN CORPUSCULAR HGB CONC 33 % (32-36); MEAN CORPUSCULAR VOLUME 96 fL (79.0-98.0); MONOCYTES # (AUTO) 0.3 K/uL (0.0-1.0); MONOCYTES % (AUTO) 4.6 % (1.7-9.3); NEUTROPHILS # (AUTO) 4.9 K/uL (1.8-7.7); NEUTROPHILS % (AUTO) 69.9 % (40.0-70.0); PLATELET COUNT (AUTO) 145 K/uL (130-430); RED BLOOD CELL COUNT(AUTO) 2.85 MIL/uL (4.2-6.2); RED CELL DISTRIBUTION WIDTH 18.5 % (9.0-15.0); WHITE BLOOD COUNT (AUTO) 7.1 K/uL (4.8-10.8)
[2018-08-09 06:44] LABS: ANION GAP 8 (5-15); CHLORIDE 111 mmol/L (98-107); CREATININE 0.51 mg/dL (0.55-1.30); GLUCOSE 104 mg/dL (70-99); POTASSIUM 3.1 mmol/L (3.5-5.1); SODIUM SERUM 141 mmol/L (136-145); UREA NITROGEN, BLOOD 24 mg/dL (8-21)
[2018-08-09] MEDS: QUEtiapine FUMARATE 25 MG TABLET GT SCH ×2 (09:42→21:36)
[2018-08-09] MEDS: LACTOBACILLUS RHAMNOSUS GG 1 CAP CAPSULE GT SCH (09:42)
[2018-08-09] MEDS: NAPH,MB-DB/K PH,MBDB 250 MG TAB GT SCH (09:42)
[2018-08-09] MEDS: MULTIVIT-MINERALS/FERROUS GLUC 15 ML UDC GT SCH (09:42)
[2018-08-09] MEDS: METOPROLOL TARTRATE 25 MG TABLET GT SCH ×2 (09:43→21:37)
[2018-08-09] MEDS: ASPIRIN 81 MG TAB.CHEW GT SCH (09:43)
[2018-08-09] MEDS: ASCORBIC ACID 500 MG TABLET GT SCH ×2 (09:44→21:41)
[2018-08-09] MEDS: FAMOTIDINE 20 MG TABLET GT SCH ×2 (09:44→21:37)
[2018-08-09] MEDS: FUROSEMIDE 20 MG/2 ML VIAL IVP SCH ×2 (09:44→18:15)
[2018-08-09] MEDS: DOCUSATE SODIUM 100 MG/10 ML UDC GT SCH ×2 (09:44→21:35)
[2018-08-09] MEDS: 0.45% NACL 1,000 ML IV SCH (09:45)
[2018-08-09] MEDS: BALSAM PERU/CASTOR OIL 60 GM OINT...G. TP SCH (09:45)
[2018-08-09] MEDS ORDERED: POTASSIUM CHLORIDE 20 MEQ/PKT PACKET PO ONE (10:15)
[2018-08-09] MEDS: CEFEPIME 1 GM in D5W 50 ML IV SCH (21:35)
[2018-08-09] MEDS: ATORVASTATIN 20 MG TABLET GT SCH (21:36)
[2018-08-09] MEDS: ENOXAPARIN SODIUM 40 MG/0.4 ML SYRINGE SUBCUT SCH (21:39)
[2018-08-10] VITALS (12 sets, daily range): BP systolic 105–150
[2018-08-10] MEDS: LevALBUTEROL HCL 1.25 MG/0.5 ML *CONC.* VIAL.NEB (XOPENEX CONC.) INH SCH ×4 (01:08→20:03)
[2018-08-10] MEDS: IPRATROPIUM BROM 0.5 MG/2.5 ML VIAL.NEB (ATROVENT) INH SCH ×4 (01:09→20:03)
[2018-08-10] MEDS ORDERED: LevALBUTEROL HCL 1.25 MG/0.5 ML *CONC.* VIAL.NEB (XOPENEX CONC.) INH ONE (01:18)
[2018-08-10] MEDS: HYDROCORTISONE SOD SUCC 100 MG/2 ML VIAL IVP SCH ×3 (05:49→20:46)
[2018-08-10] MEDS: FUROSEMIDE 20 MG/2 ML VIAL IVP SCH ×2 (05:54→18:24)
[2018-08-10] MEDS: AMIKACIN SULFATE IV SCH ×2 (05:55→17:07)
[2018-08-10] MEDS: D5W IV SCH ×2 (05:55→17:07)
[2018-08-10 05:58] LABS: BASOPHILS # (AUTO) 0.1 K/uL (0.0-0.2); EOSINOPHILS # (AUTO) 0.1 K/uL (0.0-0.4); LYMPHOCYTES # (AUTO) 1.7 K/uL (1.0-5.5); MONOCYTES # (AUTO) 0.5 K/uL (0.0-1.0); NEUTROPHILS # (AUTO) 5.9 K/uL (1.8-7.7)
[2018-08-10 06:19] LABS: BASOPHILS % (AUTO) 0.6 % (0.0-2.0); EOSINOPHILS % (AUTO) 0.9 % (0.0-4.0); HEMATOCRIT 26.1 % (36-54); HEMOGLOBIN 8.8 g/dL (14.0-18.0); LYMPHOCYTES % (AUTO) 20.7 % (20.5-51.5); MEAN CORPUSCULAR HEMOGLOBIN 32 pg (27-31); MEAN CORPUSCULAR HGB CONC 34 % (32-36); MEAN CORPUSCULAR VOLUME 96 fL (79.0-98.0); MONOCYTES % (AUTO) 5.8 % (1.7-9.3); PLATELET COUNT (AUTO) 157 K/uL (130-430); RED BLOOD CELL COUNT(AUTO) 2.72 MIL/uL (4.2-6.2); RED CELL DISTRIBUTION WIDTH 18.3 % (9.0-15.0); WHITE BLOOD COUNT (AUTO) 8.2 K/uL (4.8-10.8)
[2018-08-10 06:24] LABS: ANION GAP 6 (5-15); CALCIUM 7.6 mg/dL (8.4-11.0); CHLORIDE 106 mmol/L (98-107); CREATININE 0.57 mg/dL (0.55-1.30); GLUCOSE 142 mg/dL (70-99); POTASSIUM 3.1 mmol/L (3.5-5.1); SODIUM SERUM 138 mmol/L (136-145); UREA NITROGEN, BLOOD 24 mg/dL (8-21)
[2018-08-10] MEDS: NAPH,MB-DB/K PH,MBDB 250 MG TAB GT SCH (08:46)
[2018-08-10] MEDS: QUEtiapine FUMARATE 25 MG TABLET GT SCH ×2 (08:46→20:45)
[2018-08-10] MEDS: LACTOBACILLUS RHAMNOSUS GG 1 CAP CAPSULE GT SCH (08:46)
[2018-08-10] MEDS: CEFEPIME 1 GM in D5W 50 ML IV SCH ×2 (08:46→20:44)
[2018-08-10] MEDS: DOCUSATE SODIUM 100 MG/10 ML UDC GT SCH ×2 (08:46→20:45)
[2018-08-10] MEDS: ASCORBIC ACID 500 MG TABLET GT SCH ×2 (08:46→20:45)
[2018-08-10] MEDS: MULTIVIT-MINERALS/FERROUS GLUC 15 ML UDC GT SCH (08:46)
[2018-08-10] MEDS: ASPIRIN 81 MG TAB.CHEW GT SCH (08:47)
[2018-08-10] MEDS: METOPROLOL TARTRATE 25 MG TABLET GT SCH ×2 (08:47→20:46)
[2018-08-10] MEDS: FAMOTIDINE 20 MG TABLET GT SCH ×2 (08:47→20:45)
[2018-08-10] MEDS: BALSAM PERU/CASTOR OIL 60 GM OINT...G. TP SCH (09:05)
[2018-08-10] MEDS: 0.45% NACL 1,000 ML IV SCH (09:09)
[2018-08-10] MEDS ORDERED: ACETYLCYSTEINE 20% 4 ML VIAL (RT) INH ONE (09:15)
[2018-08-10] MEDS: POTASSIUM CHLORIDE 20 MEQ/PKT PACKET GT SCH ×2 (09:45→13:59)
[2018-08-10] MEDS: ACETYLCYSTEINE 20% 4 ML VIAL (RT) INH SCH ×2 (14:12→20:04)
[2018-08-10] MEDS ORDERED: MILK OF MAGNESIA 30 ML UDC PO PRN (16:15)
[2018-08-10] MEDS: ENOXAPARIN SODIUM 40 MG/0.4 ML SYRINGE SUBCUT SCH (20:01)
[2018-08-10] MEDS: ATORVASTATIN 20 MG TABLET GT SCH (20:45)
[2018-08-11] MEDS: IPRATROPIUM BROM 0.5 MG/2.5 ML VIAL.NEB (ATROVENT) INH SCH ×4 (01:01→19:59)
[2018-08-11] MEDS: LevALBUTEROL HCL 1.25 MG/0.5 ML *CONC.* VIAL.NEB (XOPENEX CONC.) INH SCH ×4 (01:02→19:59)
[2018-08-11 01:21] VITALS: BP_SYST 109
[2018-08-11] MEDS: HYDROCORTISONE SOD SUCC 100 MG/2 ML VIAL IVP SCH (05:23)
[2018-08-11] MEDS: AMIKACIN SULFATE IV SCH ×2 (05:24→18:03)
[2018-08-11] MEDS: D5W IV SCH ×2 (05:24→18:03)
[2018-08-11] MEDS: FUROSEMIDE 20 MG/2 ML VIAL IVP SCH (05:26)
[2018-08-11 06:27] LABS: ANION GAP 4 (5-15); CALCIUM 7.9 mg/dL (8.4-11.0); CHLORIDE 106 mmol/L (98-107); CREATININE 0.48 mg/dL (0.55-1.30); GLUCOSE 107 mg/dL (70-99); POTASSIUM 3.5 mmol/L (3.5-5.1); SODIUM SERUM 138 mmol/L (136-145); UREA NITROGEN, BLOOD 18 mg/dL (8-21)
[2018-08-11 07:01] LABS: BASOPHILS % (AUTO) 0.1 % (0.0-2.0); EOSINOPHILS # (AUTO) 0.2 K/uL (0.0-0.4); EOSINOPHILS % (AUTO) 1.9 % (0.0-4.0); HEMATOCRIT 26.7 % (36-54); HEMOGLOBIN 8.9 g/dL (14.0-18.0); LYMPHOCYTES % (AUTO) 23.7 % (20.5-51.5); MEAN CORPUSCULAR HEMOGLOBIN 32 pg (27-31); MEAN CORPUSCULAR HGB CONC 34 % (32-36); MEAN CORPUSCULAR VOLUME 95 fL (79.0-98.0); MONOCYTES # (AUTO) 0.6 K/uL (0.0-1.0); MONOCYTES % (AUTO) 6.9 % (1.7-9.3); NEUTROPHILS # (AUTO) 5.7 K/uL (1.8-7.7); NEUTROPHILS % (AUTO) 67.4 % (40.0-70.0); PLATELET COUNT (AUTO) 174 K/uL (130-430); RED BLOOD CELL COUNT(AUTO) 2.81 MIL/uL (4.2-6.2); RED CELL DISTRIBUTION WIDTH 18.7 % (9.0-15.0); WHITE BLOOD COUNT (AUTO) 8.4 K/uL (4.8-10.8)
[2018-08-11 08:45] VITALS: BP_SYST 128
[2018-08-11] MEDS ORDERED: fentaNYL CITRATE/PF 100 MCG/2 ML AMP ONE (09:01)
[2018-08-11] MEDS ORDERED: MIDAZOLAM HCL 5 MG/5 ML VIAL ONE ×2 (09:02)
[2018-08-11] MEDS ORDERED: LIDOCAINE 1%, 20 ML MDV 0 ML ONE (09:06)
[2018-08-11] MEDS ORDERED: LIDOCAINE 2% JELLY UROJECT 10 ML MM ONE (09:06)
[2018-08-11] MEDS: ACETYLCYSTEINE 20% 4 ML VIAL (RT) INH SCH ×3 (09:28→20:01)
[2018-08-11] MEDS: LACTOBACILLUS RHAMNOSUS GG 1 CAP CAPSULE GT SCH (09:36)
[2018-08-11] MEDS: FAMOTIDINE 20 MG TABLET GT SCH (09:38)
[2018-08-11] MEDS: ASCORBIC ACID 500 MG TABLET GT SCH (09:39)
[2018-08-11] MEDS: METOPROLOL TARTRATE 25 MG TABLET GT SCH (09:39)
[2018-08-11] MEDS: CEFEPIME 1 GM in D5W 50 ML IV SCH (09:40)
[2018-08-11] MEDS: DOCUSATE SODIUM 100 MG/10 ML UDC GT SCH (09:41)
[2018-08-11] MEDS: ASPIRIN 81 MG TAB.CHEW GT SCH (09:41)
[2018-08-11] MEDS: BALSAM PERU/CASTOR OIL 60 GM OINT...G. TP SCH (09:41)
[2018-08-11] MEDS: NAPH,MB-DB/K PH,MBDB 250 MG TAB GT SCH (09:43)
[2018-08-11] MEDS: MULTIVIT-MINERALS/FERROUS GLUC 15 ML UDC GT SCH (09:44)
[2018-08-11] MEDS ORDERED: POTASSIUM CHLORIDE 20 MEQ/PKT PACKET PO ONE (09:45)
[2018-08-11] MEDS: QUEtiapine FUMARATE 25 MG TABLET GT SCH (09:55)
[2018-08-11] MEDS: 0.45% NACL 1,000 ML IV SCH (09:56)
[2018-08-11 12:11] VITALS: BP_SYST 109
[2018-08-11 16:40] VITALS: BP_SYST 112
[2018-08-11 19:50] VITALS: BP_SYST 130
[2018-08-11 20:00] VITALS: BP_SYST 130
[2018-08-11] MEDS ORDERED: HYDROCORTISONE SOD SUCC 100 MG/2 ML VIAL IVP SCH (21:00)
[2018-08-12] MEDS ORDERED: FUROSEMIDE 20 MG/2 ML VIAL IVP SCH (09:00)
== END 2018-08-11 20:32 | DRG 871 ==
LOC: SED 13:23 → SIC 15:32 → STU 08-10 05:37
PROVIDERS: ADMIT Family Medicine; ATTEND Family Medicine
PROC: 5A09357 Assistance with Respiratory Ventilation, Less than 24 Consecutive Hours, Continuous Positive Airway Pressure (ICD-10-PCS; principal; 2018-08-04)
PROC: 5A09357 Assistance with Respiratory Ventilation, Less than 24 Consecutive Hours, Continuous Positive Airway Pressure (ICD-10-PCS; 2018-08-05)
DX: A41.9 Sepsis, unspecified organism (principal); J96.01 Acute respiratory failure with hypoxia; J69.0 Pneumonitis due to inhalation of food and vomit; R65.21 Severe sepsis with septic shock; E43 Unspecified severe protein-calorie malnutrition; G93.41 Metabolic encephalopathy; E87.2 Acidosis; I47.1 Supraventricular tachycardia; N39.0 Urinary tract infection, site not specified; D64.9 Anemia, unspecified; F03.90 Unspecified dementia, unspecified severity, without behavioral disturbance, psychotic disturbance, mood disturbance, and anxiety; F32.9 Major depressive disorder, single episode, unspecified; I10 Essential (primary) hypertension; N40.1 Benign prostatic hyperplasia with lower urinary tract symptoms; I25.10 Atherosclerotic heart disease of native coronary artery without angina pectoris; B96.5 Pseudomonas (aeruginosa) (mallei) (pseudomallei) as the cause of diseases classified elsewhere; E86.0 Dehydration; L89.159 Pressure ulcer of sacral region, unspecified stage; R13.10 Dysphagia, unspecified; Z74.01 Bed confinement status; Z86.73 Personal history of transient ischemic attack (TIA), and cerebral infarction without residual deficits; I25.2 Old myocardial infarction; Z68.26 Body mass index [BMI] 26.0-26.9, adult; Z79.82 Long term (current) use of aspirin; Z79.899 Other long term (current) drug therapy
CPT/HCPCS: 36415; 36600; 70450-TC; 71045; 80048; 80053; 80150; 81000-TC; 82803-TC; 83605; 83735-TC; 83880; 84100-TC; 84484; 85007; 85025; 85027; 86738; 87040-TC; 87081; 87086; 87186-TC; 87449; 93005; 94640; 94660; 94668; 94760; 99291; 99292; J0153; J0278; J0456; J0692; J1630; J1650; J1720; J1940; J2001; J2250; J2543; J2930; J3010; J3370; J3480; J7030; J7042; J7050; J7060; J7608; J7612; J7620; P9046

== ENCOUNTER 2018-11-20 08:39 | Emergency (ER) | payer OTHER, MEDICAID ==
[~2018-11-20] VITALS: Ht 177.8 cm; Wt 79.4 kg
[~2018-11-20 08:39] MED LIST changes: +ACET200V11 INH; +ALBU2TAB4 GT; +ASCO500W7 GT; +DOCU-144 GT; +ENOX40DI8 SQ; +FAMO-132 GT; -FAMO40TA71 PO; +FURO-150 GT; +IPRA4AER INH; +LIP40 GT; -MEMA10TA PO; +METO25TA6 GT; +NAPH1POW3 GT; +PRED20TA GT
[2018-11-20 08:50] VITALS: BP_SYST 94
[2018-11-20] MEDS ORDERED: GASTROGRAFIN 120 ML ONE (09:11)
[2018-11-20 09:20] VITALS: BP_SYST 94
== END 2018-11-20 09:30 ==
LOC: SED 08:39
DX: Z43.1 Encounter for attention to gastrostomy (principal); J44.9 Chronic obstructive pulmonary disease, unspecified; E11.9 Type 2 diabetes mellitus without complications; Z86.79 Personal history of other diseases of the circulatory system; Z86.73 Personal history of transient ischemic attack (TIA), and cerebral infarction without residual deficits; Z88.8 Allergy status to other drugs, medicaments and biological substances; Z79.899 Other long term (current) drug therapy
CPT/HCPCS: 43762; 74240; 99284; Q9963

== ENCOUNTER 2018-12-15 06:13 | Inpatient (IN) | payer OTHER, MEDICAID ==
[2018-12-15] VITALS (15 sets, daily range): BP systolic 97–122
[~2018-12-15] VITALS: Ht 177.8 cm; Wt 73.0 kg
[2018-12-15 07:12] LABS: BASOPHILS % (AUTO) 0.2 % (0.0-2.0); HEMATOCRIT 50.2 % (36-54); HEMOGLOBIN 16.9 g/dL (14.0-18.0); LYMPHOCYTES # (AUTO) 1.1 K/uL (1.0-5.5); MEAN CORPUSCULAR HEMOGLOBIN 35 pg (27-31); MEAN CORPUSCULAR HGB CONC 34 % (32-36); MEAN CORPUSCULAR VOLUME 103 fL (79.0-98.0); MONOCYTES # (AUTO) 0.8 K/uL (0.0-1.0); MONOCYTES % (AUTO) 5.5 % (1.7-9.3); NEUTROPHILS # (AUTO) 13.4 K/uL (1.8-7.7); NEUTROPHILS % (AUTO) 87.3 % (40.0-70.0); PLATELET COUNT (AUTO) 197 K/uL (130-430); RED BLOOD CELL COUNT(AUTO) 4.86 MIL/uL (4.2-6.2); RED CELL DISTRIBUTION WIDTH 15.5 % (9.0-15.0); WHITE BLOOD COUNT (AUTO) 15.4 K/uL (4.8-10.8)
[2018-12-15] MEDS ORDERED: ADENOSINE 6MG/2ML VIAL IVP ONE (07:15)
[2018-12-15 07:22] LABS: ANION GAP 11 (5-15); CALCIUM 8.7 mg/dL (8.4-11.0); CHLORIDE 107 mmol/L (98-107); CREATININE 1.79 mg/dL (0.55-1.30); GLUCOSE 135 mg/dL (70-99); POTASSIUM 4.8 mmol/L (3.5-5.1); SODIUM SERUM 147 mmol/L (136-145); UREA NITROGEN, BLOOD 80 mg/dL (8-21)
[2018-12-15 07:23] LABS: PROTHROMBIN TIME 9.7 SECS (9.5-12.5)
[2018-12-15 07:28] LABS: ALANINE AMINOTRANSFERASE 114 U/L (12-78); ALBUMIN 2.6 g/dL (3.4-4.8); ASPARTATE AMINOTRANSFERASE 45 U/L (10-37); TOTAL BILIRUBIN 0.8 mg/dL (0.0-1.0)
[2018-12-15] MEDS ORDERED: NACL 0.9% 1,000 ML IV ONE (07:30)
[2018-12-15] MEDS ORDERED: PIPERACILLIN/TAZO 3.375 GM in NS 50 ML IV ONE (07:30)
[2018-12-15] MEDS ORDERED: NACL 0.9% 2,000 ML IV ONE (07:45)
[2018-12-15 07:48] LABS: BILIRUBIN,URINE NEGATIVE (NEGATIVE); BLOOD, URINE 3+ (NEGATIVE); CLARITY/URINE CLOUDY (CLEAR); COLOR,URINE RED (YELLOW); GLUCOSE,URINE NEGATIVE (NEGATIVE); KETONES,URINE TRACE (NEGATIVE); LEUKOCYTE ESTERASE ,URINE 2+ (NEGATIVE); NITRITE, URINE POSITIVE (NEGATIVE); PH,URINE 7.5 (5.0-8.0); PROTEIN URINE 3+ (NEGATIVE)
[2018-12-15 07:51] LABS: BACTERIA,URINE MANY /HPF (None Seen); RBC,URINE >100 /HPF (0-3); WBC,URINE 20-50 /HPF (0-3)
[2018-12-15] MEDS ORDERED: PIPERACILLIN/TAZOBACTAM 3.375 GM/VIAL (ZOSYN) IV ONE (07:58)
[2018-12-15] MEDS ORDERED: IOHEXOL 350 mgI/mL, 150 ML INFUS..BTL IV ONE (08:25)
[2018-12-15] MEDS ORDERED: cefTRIAXone 1 GM IVPB PREMIX 50 ML IV ONE (09:45)
[2018-12-15] MEDS ORDERED: ASPIRIN 300 MG/SUPP.RECT SUPP RC ONE (10:00)
[2018-12-15] MEDS ORDERED: LevALBUTEROL HCL 1.25 MG/0.5 ML *CONC.* VIAL.NEB (XOPENEX CONC.) INH SCH (10:15)
[2018-12-15] MEDS ORDERED: LEVA1.2527 NEB (10:36)
[2018-12-15] MEDS ORDERED: METO25TA6 PO (10:36)
[2018-12-15] MEDS ORDERED: LACT10SO7 PO (10:36)
[2018-12-15] MEDS ORDERED: NAPH1POW3 GT (10:36)
[2018-12-15] MEDS ORDERED: VANCOMYCIN HCL 1 GM/NS PREMIX 250 ML IV ONE (11:00)
[2018-12-15] MEDS ORDERED: ASPIRIN 81 MG TAB.CHEW GT ONE (11:00)
[2018-12-15] MEDS ORDERED: IPRATROPIUM BROM 0.5 MG/2.5 ML VIAL.NEB (ATROVENT) INH PRN (11:45)
[2018-12-15] MEDS ORDERED: LevALBUTEROL HCL 1.25 MG/0.5 ML *CONC.* VIAL.NEB (XOPENEX CONC.) INH PRN (11:45)
[2018-12-15] MEDS ORDERED: methylPREDNISolone SOD SUCC/PF 62.5 MG/ML VIAL IVP ONE (12:00)
[2018-12-15] MEDS: PIPERACILLIN/TAZO 3.375/DEX-IS 50 ML IV SCH ×3 (12:19→23:47)
[2018-12-15] MEDS: 0.45% NACL 1,000 ML IV SCH (12:19)
[2018-12-15] MEDS: LevALBUTEROL HCL 1.25 MG/0.5 ML *CONC.* VIAL.NEB (XOPENEX CONC.) INH SCH ×2 (13:00→20:33)
[2018-12-15] MEDS: IPRATROPIUM BROM 0.5 MG/2.5 ML VIAL.NEB (ATROVENT) INH SCH ×2 (13:00→20:34)
[2018-12-15] MEDS ORDERED: LACTULOSE 20 GM/30 ML UDC PO PRN (14:15)
[2018-12-15] MEDS ORDERED: DOCUSATE SODIUM 100 MG CAPSULE PO ONE (14:30)
[2018-12-15] MEDS ORDERED: FAMOTIDINE 20 MG TABLET GT ONE (14:30)
[2018-12-15] MEDS ORDERED: LACTULOSE 20 GM/30 ML UDC GT PRN (14:33)
[2018-12-15] MEDS ORDERED: ENOXAPARIN SODIUM 30 MG/0.3 ML SYRINGE SUBCUT SCH (21:00)
[2018-12-15] MEDS ORDERED: DOPamine PREMIX 250 ML IV PRN (21:00)
[2018-12-15] MEDS ORDERED: FAMOTIDINE PF 20 MG/2 ML VIAL IVP SCH (21:00)
[2018-12-15] MEDS: ATORVASTATIN 20 MG TABLET GT SCH (21:05)
[2018-12-15] MEDS: PREDNISONE 20 MG TABLET GT SCH (21:05)
[2018-12-15] MEDS: methylPREDNISolone SOD SUCC/PF 62.5 MG/ML VIAL IVP SCH (21:05)
[2018-12-15] MEDS: ENOXAPARIN SODIUM 40 MG/0.4 ML SYRINGE SQ SCH (21:08)
[2018-12-15] MEDS ORDERED: DOPamine PREMIX 250 ML IV ONE (21:16)
[2018-12-16] VITALS (24 sets, daily range): BP systolic 90–131
[2018-12-16] MEDS: LevALBUTEROL HCL 1.25 MG/0.5 ML *CONC.* VIAL.NEB (XOPENEX CONC.) INH SCH ×4 (01:09→19:45)
[2018-12-16] MEDS: IPRATROPIUM BROM 0.5 MG/2.5 ML VIAL.NEB (ATROVENT) INH SCH ×4 (01:09→19:45)
[2018-12-16] MEDS: 0.45% NACL 1,000 ML IV SCH ×4 (01:50→20:30)
[2018-12-16 05:35] LABS: BASOPHILS % (AUTO) 0.1 % (0.0-2.0); EOSINOPHILS # (AUTO) 0.2 K/uL (0.0-0.4); EOSINOPHILS % (AUTO) 1.3 % (0.0-4.0); HEMATOCRIT 41.7 % (36-54); HEMOGLOBIN 13.9 g/dL (14.0-18.0); LYMPHOCYTES # (AUTO) 0.5 K/uL (1.0-5.5); LYMPHOCYTES % (AUTO) 3.3 % (20.5-51.5); MEAN CORPUSCULAR HEMOGLOBIN 35 pg (27-31); MEAN CORPUSCULAR HGB CONC 33 % (32-36); MEAN CORPUSCULAR VOLUME 105 fL (79.0-98.0); MONOCYTES # (AUTO) 0.3 K/uL (0.0-1.0); MONOCYTES % (AUTO) 2.1 % (1.7-9.3); NEUTROPHILS # (AUTO) 14.4 K/uL (1.8-7.7); NEUTROPHILS % (AUTO) 93.2 % (40.0-70.0); PLATELET COUNT (AUTO) 166 K/uL (130-430); RED BLOOD CELL COUNT(AUTO) 3.96 MIL/uL (4.2-6.2); RED CELL DISTRIBUTION WIDTH 15.6 % (9.0-15.0); WHITE BLOOD COUNT (AUTO) 15.4 K/uL (4.8-10.8)
[2018-12-16] MEDS: PIPERACILLIN/TAZO 3.375/DEX-IS 50 ML IV SCH ×4 (05:44→23:48)
[2018-12-16] MEDS: methylPREDNISolone SOD SUCC/PF 62.5 MG/ML VIAL IVP SCH ×2 (05:45→18:31)
[2018-12-16 06:18] LABS: ALANINE AMINOTRANSFERASE 67 U/L (12-78); ANION GAP 13 (5-15); ASPARTATE AMINOTRANSFERASE 29 U/L (10-37); CALCIUM 7.6 mg/dL (8.4-11.0); CHLORIDE 111 mmol/L (98-107); GLUCOSE 184 mg/dL (70-99); POTASSIUM 4.7 mmol/L (3.5-5.1); SODIUM SERUM 146 mmol/L (136-145); TOTAL BILIRUBIN 0.7 mg/dL (0.0-1.0); UREA NITROGEN, BLOOD 88 mg/dL (8-21)
[2018-12-16] MEDS ORDERED: FUROSEMIDE 20 MG TABLET GT SCH (09:00)
[2018-12-16] MEDS: METOPROLOL TARTRATE 25 MG TABLET GT SCH (09:32)
[2018-12-16] MEDS: FAMOTIDINE 20 MG TABLET GT SCH (09:32)
[2018-12-16] MEDS: DOCUSATE SODIUM 100 MG/10 ML UDC GT SCH (09:32)
[2018-12-16] MEDS: PREDNISONE 20 MG TABLET GT SCH (09:32)
[2018-12-16] MEDS ORDERED: VANCOMYCIN HCL 1,000 MG in NS 250 ML IV SCH (13:00)
[2018-12-16] MEDS ORDERED: BALSAM PERU/CASTOR OIL 60 GM OINT...G. TP ONE (15:45)
[2018-12-16] MEDS ORDERED: MORPHINE 2 MG/ML INJ. SYRINGE ONE (19:00)
[2018-12-16] MEDS ORDERED: MUPIROCIN 2% TOPICAL OINTMENT 22 GM TP ONE (19:30)
[2018-12-16] MEDS: ATORVASTATIN 20 MG TABLET GT SCH (20:19)
[2018-12-16] MEDS: ENOXAPARIN SODIUM 40 MG/0.4 ML SYRINGE SQ SCH (20:20)
[2018-12-17] VITALS (24 sets, daily range): BP systolic 75–127
[2018-12-17] MEDS: IPRATROPIUM BROM 0.5 MG/2.5 ML VIAL.NEB (ATROVENT) INH SCH ×3 (01:05→20:37)
[2018-12-17] MEDS: LevALBUTEROL HCL 1.25 MG/0.5 ML *CONC.* VIAL.NEB (XOPENEX CONC.) INH SCH ×3 (01:05→20:37)
[2018-12-17] MEDS: NOREPINEPHRINE BITARTRATE 4 MG in D5W 246 ML IV PRN ×4 (02:34→23:08)
[2018-12-17] MEDS ORDERED: NOREPINEPHRINE 4 MG/4 ML VIAL IV ONE (02:40)
[2018-12-17] MEDS: PIPERACILLIN/TAZO 3.375/DEX-IS 50 ML IV SCH ×4 (05:07→23:10)
[2018-12-17 05:32] LABS: HEMATOCRIT 37.7 % (36-54); HEMOGLOBIN 12.7 g/dL (14.0-18.0); LYMPHOCYTES # (AUTO) 0.6 K/uL (1.0-5.5); LYMPHOCYTES % (AUTO) 3.7 % (20.5-51.5); MEAN CORPUSCULAR HEMOGLOBIN 35 pg (27-31); MEAN CORPUSCULAR HGB CONC 34 % (32-36); MEAN CORPUSCULAR VOLUME 103 fL (79.0-98.0); MONOCYTES # (AUTO) 0.3 K/uL (0.0-1.0); MONOCYTES % (AUTO) 1.9 % (1.7-9.3); NEUTROPHILS # (AUTO) 14.9 K/uL (1.8-7.7); NEUTROPHILS % (AUTO) 94.4 % (40.0-70.0); PLATELET COUNT (AUTO) 213 K/uL (130-430); RED BLOOD CELL COUNT(AUTO) 3.66 MIL/uL (4.2-6.2); RED CELL DISTRIBUTION WIDTH 15.6 % (9.0-15.0); WHITE BLOOD COUNT (AUTO) 15.8 K/uL (4.8-10.8)
[2018-12-17 05:53] LABS: ANION GAP 12 (5-15); CALCIUM 8.1 mg/dL (8.4-11.0); CHLORIDE 108 mmol/L (98-107); CREATININE 2.96 mg/dL (0.55-1.30); GLUCOSE 158 mg/dL (70-99); POTASSIUM 4.3 mmol/L (3.5-5.1); SODIUM SERUM 143 mmol/L (136-145); UREA NITROGEN, BLOOD 98 mg/dL (8-21)
[2018-12-17] MEDS: methylPREDNISolone SOD SUCC/PF 62.5 MG/ML VIAL IVP SCH ×2 (06:14→18:43)
[2018-12-17] MEDS: DOCUSATE SODIUM 100 MG/10 ML UDC GT SCH (08:52)
[2018-12-17] MEDS: FAMOTIDINE 20 MG TABLET GT SCH (08:52)
[2018-12-17] MEDS: METOPROLOL TARTRATE 25 MG TABLET GT SCH (08:53)
[2018-12-17] MEDS: MUPIROCIN 2% TOPICAL OINTMENT 22 GM TP SCH ×2 (08:53→20:05)
[2018-12-17] MEDS: BALSAM PERU/CASTOR OIL 60 GM OINT...G. TP SCH (08:54)
[2018-12-17] MEDS: 0.45% NACL 1,000 ML IV SCH ×2 (13:45→20:38)
[2018-12-17] MEDS ORDERED: MORPHINE 2 MG/ML INJ. SYRINGE IVP PRN (14:00)
[2018-12-17] MEDS: ATORVASTATIN 20 MG TABLET GT SCH (20:06)
[2018-12-17] MEDS: ENOXAPARIN SODIUM 40 MG/0.4 ML SYRINGE SQ SCH (20:08)
[2018-12-18] VITALS (24 sets, daily range): BP systolic 90–179
[2018-12-18] MEDS: LevALBUTEROL HCL 1.25 MG/0.5 ML *CONC.* VIAL.NEB (XOPENEX CONC.) INH SCH ×4 (00:30→19:41)
[2018-12-18] MEDS: IPRATROPIUM BROM 0.5 MG/2.5 ML VIAL.NEB (ATROVENT) INH SCH ×4 (00:31→19:41)
[2018-12-18] MEDS: PIPERACILLIN/TAZO 3.375/DEX-IS 50 ML IV SCH ×3 (05:04→17:59)
[2018-12-18 06:03] LABS: BASOPHILS % (AUTO) 0.1 % (0.0-2.0); HEMATOCRIT 34.1 % (36-54); HEMOGLOBIN 11.5 g/dL (14.0-18.0); LYMPHOCYTES # (AUTO) 0.5 K/uL (1.0-5.5); LYMPHOCYTES % (AUTO) 3.5 % (20.5-51.5); MEAN CORPUSCULAR HEMOGLOBIN 35 pg (27-31); MEAN CORPUSCULAR HGB CONC 34 % (32-36); MEAN CORPUSCULAR VOLUME 102 fL (79.0-98.0); MONOCYTES # (AUTO) 0.3 K/uL (0.0-1.0); MONOCYTES % (AUTO) 2.3 % (1.7-9.3); NEUTROPHILS # (AUTO) 12.7 K/uL (1.8-7.7); NEUTROPHILS % (AUTO) 94.1 % (40.0-70.0); PLATELET COUNT (AUTO) 195 K/uL (130-430); RED BLOOD CELL COUNT(AUTO) 3.33 MIL/uL (4.2-6.2); RED CELL DISTRIBUTION WIDTH 15.3 % (9.0-15.0); WHITE BLOOD COUNT (AUTO) 13.5 K/uL (4.8-10.8)
[2018-12-18 06:14] LABS: CREATININE 1.19 mg/dL (0.55-1.30); GLUCOSE 173 mg/dL (70-99); UREA NITROGEN, BLOOD 55 mg/dL (8-21)
[2018-12-18 06:26] LABS: ANION GAP 7 (5-15); CHLORIDE 110 mmol/L (98-107); POTASSIUM 3.6 mmol/L (3.5-5.1); SODIUM SERUM 143 mmol/L (136-145)
[2018-12-18] MEDS: methylPREDNISolone SOD SUCC/PF 62.5 MG/ML VIAL IVP SCH ×2 (06:27→18:00)
[2018-12-18 06:33] LABS: CALCIUM 8.3 mg/dL (8.4-11.0)
[2018-12-18] MEDS: FAMOTIDINE 20 MG TABLET GT SCH (09:07)
[2018-12-18] MEDS: DOCUSATE SODIUM 100 MG/10 ML UDC GT SCH (09:07)
[2018-12-18] MEDS: MUPIROCIN 2% TOPICAL OINTMENT 22 GM TP SCH ×2 (09:08→21:41)
[2018-12-18] MEDS: BALSAM PERU/CASTOR OIL 60 GM OINT...G. TP SCH (09:09)
[2018-12-18] MEDS: 0.45% NACL 1,000 ML IV SCH ×2 (09:09→22:35)
[2018-12-18] MEDS: NOREPINEPHRINE BITARTRATE 4 MG in D5W 246 ML IV PRN ×2 (09:11→21:52)
[2018-12-18] MEDS: METOPROLOL TARTRATE 25 MG TABLET GT SCH (09:12)
[2018-12-18] MEDS: ATORVASTATIN 20 MG TABLET GT SCH (21:41)
[2018-12-18] MEDS: ENOXAPARIN SODIUM 40 MG/0.4 ML SYRINGE SQ SCH (21:43)
[2018-12-19] VITALS (23 sets, daily range): BP systolic 113–163
[2018-12-19] MEDS: PIPERACILLIN/TAZO 3.375/DEX-IS 50 ML IV SCH ×4 (00:10→17:20)
[2018-12-19] MEDS: LevALBUTEROL HCL 1.25 MG/0.5 ML *CONC.* VIAL.NEB (XOPENEX CONC.) INH SCH ×4 (01:00→19:51)
[2018-12-19] MEDS: IPRATROPIUM BROM 0.5 MG/2.5 ML VIAL.NEB (ATROVENT) INH SCH ×4 (01:00→19:51)
[2018-12-19] MEDS: methylPREDNISolone SOD SUCC/PF 62.5 MG/ML VIAL IVP SCH (06:16)
[2018-12-19 08:37] LABS: BASOPHILS % (AUTO) 0.3 % (0.0-2.0); EOSINOPHILS % (AUTO) 0.2 % (0.0-4.0); HEMATOCRIT 34.2 % (36-54); HEMOGLOBIN 11.6 g/dL (14.0-18.0); LYMPHOCYTES # (AUTO) 0.9 K/uL (1.0-5.5); LYMPHOCYTES % (AUTO) 13.6 % (20.5-51.5); MEAN CORPUSCULAR HEMOGLOBIN 35 pg (27-31); MEAN CORPUSCULAR HGB CONC 34 % (32-36); MEAN CORPUSCULAR VOLUME 103 fL (79.0-98.0); MONOCYTES # (AUTO) 0.2 K/uL (0.0-1.0); NEUTROPHILS # (AUTO) 5.7 K/uL (1.8-7.7); NEUTROPHILS % (AUTO) 82.9 % (40.0-70.0); PLATELET COUNT (AUTO) 141 K/uL (130-430); RED BLOOD CELL COUNT(AUTO) 3.31 MIL/uL (4.2-6.2); RED CELL DISTRIBUTION WIDTH 14.9 % (9.0-15.0)
[2018-12-19] MEDS: DOCUSATE SODIUM 100 MG/10 ML UDC GT SCH (08:38)
[2018-12-19] MEDS: MUPIROCIN 2% TOPICAL OINTMENT 22 GM TP SCH ×2 (08:39→21:22)
[2018-12-19] MEDS: METOPROLOL TARTRATE 25 MG TABLET GT SCH (08:39)
[2018-12-19] MEDS: FAMOTIDINE 20 MG TABLET GT SCH (08:39)
[2018-12-19] MEDS: BALSAM PERU/CASTOR OIL 60 GM OINT...G. TP SCH (08:40)
[2018-12-19 08:41] LABS: WHITE BLOOD COUNT (AUTO) 6.8 K/uL (4.8-10.8)
[2018-12-19 08:58] LABS: ALANINE AMINOTRANSFERASE 38 U/L (12-78); ALBUMIN 1.7 g/dL (3.4-4.8); ANION GAP 5 (5-15); ASPARTATE AMINOTRANSFERASE 18 U/L (10-37); CHLORIDE 108 mmol/L (98-107); CREATININE 0.84 mg/dL (0.55-1.30); GLUCOSE 62 mg/dL (70-99); POTASSIUM 3.7 mmol/L (3.5-5.1); SODIUM SERUM 142 mmol/L (136-145); TOTAL BILIRUBIN 0.6 mg/dL (0.0-1.0); UREA NITROGEN, BLOOD 38 mg/dL (8-21)
[2018-12-19] MEDS: 0.45% NACL 1,000 ML IV SCH (10:30)
[2018-12-19] MEDS: ATORVASTATIN 20 MG TABLET GT SCH (21:20)
[2018-12-19] MEDS: PREDNISONE 20 MG TABLET GT SCH (21:20)
[2018-12-19] MEDS: ENOXAPARIN SODIUM 40 MG/0.4 ML SYRINGE SQ SCH (21:23)
[2018-12-20] VITALS (24 sets, daily range): BP systolic 135–175
[2018-12-20] MEDS: PIPERACILLIN/TAZO 3.375/DEX-IS 50 ML IV SCH ×4 (00:15→18:44)
[2018-12-20] MEDS: LevALBUTEROL HCL 1.25 MG/0.5 ML *CONC.* VIAL.NEB (XOPENEX CONC.) INH SCH ×4 (01:00→20:01)
[2018-12-20] MEDS: IPRATROPIUM BROM 0.5 MG/2.5 ML VIAL.NEB (ATROVENT) INH SCH ×4 (01:00→20:01)
[2018-12-20 08:19] LABS: BASOPHILS % (AUTO) 0.5 % (0.0-2.0); EOSINOPHILS % (AUTO) 0.2 % (0.0-4.0); HEMATOCRIT 35.3 % (36-54); LYMPHOCYTES # (AUTO) 1.3 K/uL (1.0-5.5); LYMPHOCYTES % (AUTO) 17.8 % (20.5-51.5); MEAN CORPUSCULAR HEMOGLOBIN 35 pg (27-31); MEAN CORPUSCULAR HGB CONC 34 % (32-36); MEAN CORPUSCULAR VOLUME 103 fL (79.0-98.0); MONOCYTES # (AUTO) 0.3 K/uL (0.0-1.0); MONOCYTES % (AUTO) 3.8 % (1.7-9.3); NEUTROPHILS # (AUTO) 5.7 K/uL (1.8-7.7); NEUTROPHILS % (AUTO) 77.7 % (40.0-70.0); PLATELET COUNT (AUTO) 140 K/uL (130-430); RED BLOOD CELL COUNT(AUTO) 3.43 MIL/uL (4.2-6.2); RED CELL DISTRIBUTION WIDTH 14.6 % (9.0-15.0); WHITE BLOOD COUNT (AUTO) 7.3 K/uL (4.8-10.8)
[2018-12-20 08:25] LABS: ANION GAP 4 (5-15); CALCIUM 7.9 mg/dL (8.4-11.0); CHLORIDE 106 mmol/L (98-107); CREATININE 0.68 mg/dL (0.55-1.30); GLUCOSE 150 mg/dL (70-99); POTASSIUM 3.9 mmol/L (3.5-5.1); SODIUM SERUM 139 mmol/L (136-145); UREA NITROGEN, BLOOD 36 mg/dL (8-21)
[2018-12-20] MEDS: FAMOTIDINE 20 MG TABLET GT SCH (09:32)
[2018-12-20] MEDS: PREDNISONE 20 MG TABLET GT SCH ×2 (09:32→21:45)
[2018-12-20] MEDS: METOPROLOL TARTRATE 25 MG TABLET GT SCH (09:32)
[2018-12-20] MEDS: DOCUSATE SODIUM 100 MG/10 ML UDC GT SCH (09:32)
[2018-12-20] MEDS: MUPIROCIN 2% TOPICAL OINTMENT 22 GM TP SCH ×2 (09:33→21:48)
[2018-12-20] MEDS: BALSAM PERU/CASTOR OIL 60 GM OINT...G. TP SCH (09:33)
[2018-12-20] MEDS: 0.45% NACL 1,000 ML IV SCH (18:44)
[2018-12-20] MEDS: ATORVASTATIN 20 MG TABLET GT SCH (21:45)
[2018-12-20] MEDS: ENOXAPARIN SODIUM 40 MG/0.4 ML SYRINGE SQ SCH (21:47)
[2018-12-21] VITALS (18 sets, daily range): BP systolic 109–159
[2018-12-21] MEDS: PIPERACILLIN/TAZO 3.375/DEX-IS 50 ML IV SCH ×2 (00:27→06:26)
[2018-12-21] MEDS: LevALBUTEROL HCL 1.25 MG/0.5 ML *CONC.* VIAL.NEB (XOPENEX CONC.) INH SCH ×4 (00:46→19:35)
[2018-12-21] MEDS: IPRATROPIUM BROM 0.5 MG/2.5 ML VIAL.NEB (ATROVENT) INH SCH ×4 (00:47→19:35)
[2018-12-21] MEDS: 0.45% NACL 1,000 ML IV SCH (06:34)
[2018-12-21] MEDS: PREDNISONE 20 MG TABLET GT SCH ×2 (09:08→20:50)
[2018-12-21] MEDS: DOCUSATE SODIUM 100 MG/10 ML UDC GT SCH (09:08)
[2018-12-21] MEDS: FAMOTIDINE 20 MG TABLET GT SCH (09:08)
[2018-12-21] MEDS: METOPROLOL TARTRATE 25 MG TABLET GT SCH (09:09)
[2018-12-21] MEDS: MUPIROCIN 2% TOPICAL OINTMENT 22 GM TP SCH ×2 (09:09→21:00)
[2018-12-21] MEDS: BALSAM PERU/CASTOR OIL 60 GM OINT...G. TP SCH (09:09)
[2018-12-21] MEDS: cefTRIAXone 1 GM in D5W 50 ML IV SCH (12:39)
[2018-12-21] MEDS: VANCOMYCIN HCL 1,000 MG in NS 250 ML IV SCH (14:17)
[2018-12-21] MEDS: ATORVASTATIN 20 MG TABLET GT SCH (20:50)
[2018-12-21] MEDS: ENOXAPARIN SODIUM 40 MG/0.4 ML SYRINGE SQ SCH (20:54)
[2018-12-22 00:07] VITALS: BP_SYST 119
[2018-12-22] MEDS: IPRATROPIUM BROM 0.5 MG/2.5 ML VIAL.NEB (ATROVENT) INH SCH ×3 (00:50→13:17)
[2018-12-22] MEDS: LevALBUTEROL HCL 1.25 MG/0.5 ML *CONC.* VIAL.NEB (XOPENEX CONC.) INH SCH ×3 (00:50→13:17)
[2018-12-22] MEDS: VANCOMYCIN HCL 1,000 MG in NS 250 ML IV SCH ×2 (00:56→13:05)
[2018-12-22 08:00] VITALS: BP_SYST 101
[2018-12-22] MEDS: MUPIROCIN 2% TOPICAL OINTMENT 22 GM TP SCH (08:30)
[2018-12-22] MEDS: DOCUSATE SODIUM 100 MG/10 ML UDC GT SCH (08:30)
[2018-12-22] MEDS: FAMOTIDINE 20 MG TABLET GT SCH (08:31)
[2018-12-22] MEDS: PREDNISONE 20 MG TABLET GT SCH (08:31)
[2018-12-22] MEDS: BALSAM PERU/CASTOR OIL 60 GM OINT...G. TP SCH (08:31)
[2018-12-22] MEDS: METOPROLOL TARTRATE 25 MG TABLET GT SCH (09:00)
[2018-12-22 12:03] VITALS: BP_SYST 98
[2018-12-22] MEDS: cefTRIAXone 1 GM in D5W 50 ML IV SCH (12:29)
[2018-12-22 13:28] VITALS: BP_SYST 99
[2018-12-22 15:23] VITALS: BP_SYST 103
[2018-12-22 16:00] VITALS: BP_SYST 103
[2018-12-22] MEDS ORDERED: PREDNISONE 10 MG TABLET GT SCH (21:00)
== END 2018-12-22 17:25 | DRG 871 ==
LOC: SED 06:13 → SIC 10:14 → STU 12-21 17:50
PROVIDERS: ADMIT Family Medicine; ATTEND Family Medicine
DX: A41.9 Sepsis, unspecified organism (principal); R65.21 Severe sepsis with septic shock; J96.01 Acute respiratory failure with hypoxia; J69.0 Pneumonitis due to inhalation of food and vomit; E43 Unspecified severe protein-calorie malnutrition; N17.0 Acute kidney failure with tubular necrosis; E87.0 Hyperosmolality and hypernatremia; N13.6 Pyonephrosis; E86.0 Dehydration; F03.90 Unspecified dementia, unspecified severity, without behavioral disturbance, psychotic disturbance, mood disturbance, and anxiety; R79.89 Other specified abnormal findings of blood chemistry; I10 Essential (primary) hypertension; R13.10 Dysphagia, unspecified; R00.0 Tachycardia, unspecified; R33.8 Other retention of urine; N40.1 Benign prostatic hyperplasia with lower urinary tract symptoms; N13.9 Obstructive and reflux uropathy, unspecified; R31.0 Gross hematuria; Z66 Do not resuscitate; Z86.73 Personal history of transient ischemic attack (TIA), and cerebral infarction without residual deficits; Z87.440 Personal history of urinary (tract) infections; Z87.891 Personal history of nicotine dependence; Z88.8 Allergy status to other drugs, medicaments and biological substances; Z79.899 Other long term (current) drug therapy; Z22.322 Carrier or suspected carrier of Methicillin resistant Staphylococcus aureus; Z68.23 Body mass index [BMI] 23.0-23.9, adult
CPT/HCPCS: 36415; 36600; 71045; 71275; 76770; 80048; 80053; 81000-TC; 82550-TC; 82803-TC; 82962; 83605; 83880; 84484; 85025; 85379; 85610-TC; 87040-TC; 87081; 87086; 93005; 94640; 94668; 96361; 96365; 96367; 99291; G0378; J0153; J0696; J1265; J1650; J2270; J2543; J2930; J3370; J7030; J7050; J7060; J7512; J7612; Q9967

== ENCOUNTER 2019-02-23 03:12 | Inpatient (IN) | payer OTHER, MEDICAID ==
[2019-02-23] VITALS (9 sets, daily range): BP systolic 87–118
[~2019-02-23] VITALS: Ht 177.8 cm; Wt 72.1 kg
--- NOTE | 2019-02-23 03:12 | NUR ---
Patient to ER bed 1 to gown for evaluation. Side rails up.
--- NOTE | 2019-02-23 03:30 | NUR ---
Pt Brought in by ambulance. EMS and facility staff state that the patient had had episodes of shortness of breath. Pt exhibiting acc. muscle use, retractions, productive cought and bilateral rales. Pt Resting in bed. No acute distress noted at this time
--- NOTE | 2019-02-23 03:30 | NUR ---
ER at bedside examining patient.
[2019-02-23 04:01] LABS: BASOPHILS % (AUTO) 0.3 % (0.0-2.0); EOSINOPHILS # (AUTO) 0.2 K/uL (0.0-0.4); EOSINOPHILS % (AUTO) 1.3 % (0.0-4.0); HEMATOCRIT 43.1 % (36-54); HEMOGLOBIN 14.2 g/dL (14.0-18.0); LYMPHOCYTES # (AUTO) 1.3 K/uL (1.0-5.5); LYMPHOCYTES % (AUTO) 9.9 % (20.5-51.5); MEAN CORPUSCULAR HEMOGLOBIN 35 pg (27-31); MEAN CORPUSCULAR HGB CONC 33 % (32-36); MEAN CORPUSCULAR VOLUME 106 fL (79.0-98.0); MONOCYTES # (AUTO) 0.7 K/uL (0.0-1.0); MONOCYTES % (AUTO) 5.5 % (1.7-9.3); NEUTROPHILS # (AUTO) 10.6 K/uL (1.8-7.7); PLATELET COUNT (AUTO) 200 K/uL (130-430); RED BLOOD CELL COUNT(AUTO) 4.08 MIL/uL (4.2-6.2); RED CELL DISTRIBUTION WIDTH 14.3 % (9.0-15.0); WHITE BLOOD COUNT (AUTO) 12.7 K/uL (4.8-10.8)
[2019-02-23 04:12] LABS: ANION GAP 12 (5-15); CALCIUM 8.6 mg/dL (8.4-11.0); CHLORIDE 106 mmol/L (98-107); GLUCOSE 96 mg/dL (70-99); POTASSIUM 4.1 mmol/L (3.5-5.1); SODIUM SERUM 144 mmol/L (136-145); UREA NITROGEN, BLOOD 32 mg/dL (8-21)
[2019-02-23 04:17] LABS: PROTHROMBIN TIME 10.2 SECS (9.5-12.5)
[2019-02-23 04:19] LABS: ALANINE AMINOTRANSFERASE 70 U/L (12-78); ALBUMIN 2.9 g/dL (3.4-4.8); ASPARTATE AMINOTRANSFERASE 29 U/L (10-37); TOTAL BILIRUBIN 0.5 mg/dL (0.0-1.0)
[2019-02-23] MEDS ORDERED: LIP40 GT (04:19)
[2019-02-23] MEDS ORDERED: DOCU-144 GT (04:21)
[2019-02-23] MEDS ORDERED: FAMO20TA8 GT (04:22)
[2019-02-23] MEDS ORDERED: ATRMDI INH (04:24)
[2019-02-23] MEDS ORDERED: LEVA1.2527 NEB (04:24)
[2019-02-23] MEDS ORDERED: METO25TA6 GT (04:25)
[2019-02-23] MEDS ORDERED: MULT-1089 GT (04:26)
[2019-02-23] MEDS ORDERED: PRED10TA GT (04:27)
[2019-02-23] MEDS ORDERED: methylPREDNISolone SOD SUCC/PF 62.5 MG/ML VIAL IVP ONE (04:30)
[2019-02-23] MEDS ORDERED: IPRATROPIUM/ALBUTEROL SULFATE 3 ML AMPUL.NEB (DUONEB) INH ONE (04:30)
[2019-02-23] MEDS ORDERED: cefTRIAXone 1 GM IVPB PREMIX 50 ML IV ONE ×2 (04:30→07:53)
[2019-02-23] MEDS ORDERED: NACL 0.9% 1,000 ML IV ONE (06:15)
[2019-02-23] MEDS ORDERED: LORazepam 2 MG/ML VIAL IVP ONE (07:00)
--- NOTE | 2019-02-23 07:44 | NUR ---
Received orders from Dr. Kim.
[2019-02-23] MEDS ORDERED: KCL 20 mEq in D5/0.45NS 1000mL 1,000 ML IV SCH (07:45)
[2019-02-23] MEDS ORDERED: VANCOMYCIN HCL 1,000 MG in NS 250 ML IV ONE (07:45)
[2019-02-23] MEDS ORDERED: methylPREDNISolone SOD SUCC/PF 62.5 MG/ML VIAL ONE (07:56)
[2019-02-23] MEDS ORDERED: IOHEXOL 350 mgI/mL, 150 ML INFUS..BTL IV ONE (08:00)
--- NOTE | 2019-02-23 08:37 | NUR ---
Spoke with Katherine of Pharmacy regarding Vancomycin IV.
--- NOTE | 2019-02-23 09:30 | NUR ---
Administered Vancomycin 1gram IV running at 125mL/Hr. Patient tolerated the medication well.
[2019-02-23] MEDS: VANCOMYCIN HCL 1,000 MG in NS 250 ML IV SCH (09:45)
--- NOTE | 2019-02-23 10:01 | NUR ---
ADMISSION NOTE Received patient from ER via damir, received report from Charley NOVA. Patient admitted with diagnosis of PNA and Sepsis. Patient oriented to hospital routine, call light, toileting and safety-patient verbalized understanding.
--- NOTE | 2019-02-23 10:20 | NUR ---
Patient will be admitted to care of Dr. Kim. Admitted to Telemetry unit. Will go to room 114B. Belongings list completed. Complete and up to date summary report printed. SBAR report to be given at bedside with opportunity for questions.
[2019-02-23] MEDS: LevALBUTEROL HCL 1.25 MG/0.5 ML *CONC.* VIAL.NEB (XOPENEX CONC.) INH SCH ×2 (11:30→20:01)
[2019-02-23] MEDS ORDERED: PIPERACILLIN/TAZO 3.375 GM in NS 50 ML IV SCH (12:00)
--- NOTE | 2019-02-23 12:45 | NUR ---
GT feeding started: Start 1.5 Jevity tube feeding at 65 ml/gr with 150 ml free water Q 6 hrs as ordered.
[2019-02-23] MEDS: methylPREDNISolone SOD SUCC 40 MG/ML VIAL IVP SCH ×2 (15:48→18:42)
[2019-02-23] MEDS: ENOXAPARIN SODIUM 40 MG/0.4 ML SYRINGE SUBCUT SCH (15:48)
--- NOTE | 2019-02-23 15:55 | NUR ---
round: Dr. Kim makes round and has new orders, including IVF.
[2019-02-23] MEDS ORDERED: ACETAMINOPHEN 650 MG/20.3 ML UDC GT PRN (16:45)
[2019-02-23] MEDS: PIPERACILLIN/TAZO 3.375 GM in NS 50 ML IV SCH ×2 (17:10→22:51)
[2019-02-23] MEDS: KCL 20 mEq in D5/0.45NS 1000mL 1,000 ML IV SCH (17:11)
--- NOTE | 2019-02-23 18:58 | NUR ---
Closing note: Patient is stable, on Oxygen 3 L/M via NC, no sign of distress, on IVF the same rate, F/C draining well via gravity, tolerating Tube feeding well.
[2019-02-23] MEDS ORDERED: RIVAROXABAN 10 MG TABLET PO SCH ×2 (20:00→22:45)
[2019-02-23] MEDS: ATORVASTATIN 20 MG TABLET GT SCH (22:49)
[2019-02-23] MEDS: DOCUSATE SODIUM 100 MG CAPSULE PO SCH (22:49)
[2019-02-23] MEDS: RIVAROXABAN 10 MG TABLET PO SCH (22:50)
[2019-02-24] VITALS (7 sets, daily range): BP systolic 93–121
[2019-02-24] MEDS: LevALBUTEROL HCL 1.25 MG/0.5 ML *CONC.* VIAL.NEB (XOPENEX CONC.) INH SCH ×7 (00:25→23:47)
[2019-02-24] MEDS: methylPREDNISolone SOD SUCC 40 MG/ML VIAL IVP SCH ×5 (00:54→23:44)
[2019-02-24] MEDS: KCL 20 mEq in D5/0.45NS 1000mL 1,000 ML IV SCH ×2 (04:23→11:58)
[2019-02-24] MEDS: PIPERACILLIN/TAZO 3.375 GM in NS 50 ML IV SCH ×4 (04:23→22:48)
--- NOTE | 2019-02-24 06:58 | NUR ---
DR VARGAS PAGED THE PATIENT BLOOD SUGAR 220MG/DL. WITH ORDERS AND CARRIED OUT, THE SAME GTUBE FEEDING ON
--- NOTE | 2019-02-24 07:39 | NUR ---
BS RECHECKED 243MG/DL, DAY SHIFT RN INFORMED THAT THE PATIENT IS ON d51/2 IVF AND NEEDS TO VERIFY WITH THE PHYSICIAN IF THE IVF NEEDS TO BE CONTINUED .TOLERATING FEEDING WELL.
[2019-02-24] MEDS: DOCUSATE SODIUM 100 MG CAPSULE PO SCH ×2 (09:00→21:16)
[2019-02-24] MEDS: METOPROLOL TARTRATE 25 MG TABLET GT SCH (09:00)
[2019-02-24] MEDS: ENOXAPARIN SODIUM 40 MG/0.4 ML SYRINGE SUBCUT SCH (09:21)
[2019-02-24] MEDS: FAMOTIDINE 20 MG TABLET GT SCH (09:21)
--- NOTE | 2019-02-24 09:32 | NUR ---
Medication patient resting in bed, cleaned, turned and repositioned patient with EARLY CHILDHOOD SPECIAL EDUCATOR, patient tolerated well, held Colace GT at this time due to medication being a capsule and not being able to crush med, held Metopolol GT due to decreased blood pressure at this time, no residual output from G tube, administered Pepcid as per MD orders, patient tolerated well, continuing to monitor, bed in lowest position, three side rails up, bed alarm on, fall and aspiration precautions in place.
--- NOTE | 2019-02-24 09:56 | NUR ---
Nutrition Update Dante Scale 13 noted. Pt admitted for PNA and sepsis Diet: Jevity 1.5 at 65ml/hr and 150ml free water flush Q6h BMI: 22.8 kg/m2 RD to follow per nutrition care standards.
[2019-02-24] MEDS: VANCOMYCIN HCL 1,000 MG in NS 250 ML IV SCH (10:55)
[2019-02-24] MEDS: INSULIN REGULAR, HUMAN 100 UNITS/ML, 10 ML VIAL (humuLIN R) SUBCUT PRN ×3 (11:06→21:25)
--- NOTE | 2019-02-24 11:08 | NUR ---
RN rounds/Medication patient resting in bed, eyes closed, breathing is even and unlabored, no signs of distress, IV Vanco hung late due to medication not being available on time, IV line is patent and infusing well, blood glucose checked and insulin coverage provided per MD orders, no other needs at this time, bed in lowest position, three side rails up, bed alarm on, bed close to nursing station, fall and aspiration precautions in place.
--- NOTE | 2019-02-24 12:07 | NUR ---
RN rounds/Medication patient resting in bed, receiving breathing treatment, administered IV Solu-Medrol per MD orders, IV line is patent and infusing well, IV Vancomycin continues to infuse, continuing to monitor, bed in lowest position, three side rails up, bed alarm on, bed close to nursing station, fall and aspiration precautions in place.
--- NOTE | 2019-02-24 13:36 | NUR ---
RN rounds/Medication patient resting in bed, eyes closed, breathing is even and unlabored, no signs of distress, IV zosyn hung and infusing well, IV is patient and infusing well, no other needs at this time, bed in lowest position, three side rails up, bed alarm on, fall and aspiration precautions in place.
[2019-02-24 15:36] LABS: BASOPHILS % (AUTO) 0.3 % (0.0-2.0); LYMPHOCYTES # (AUTO) 0.4 K/uL (1.0-5.5); LYMPHOCYTES % (AUTO) 3.5 % (20.5-51.5); MEAN CORPUSCULAR HEMOGLOBIN 35 pg (27-31); MEAN CORPUSCULAR HGB CONC 33 % (32-36); MEAN CORPUSCULAR VOLUME 105 fL (79.0-98.0); MONOCYTES # (AUTO) 0.4 K/uL (0.0-1.0); MONOCYTES % (AUTO) 3.5 % (1.7-9.3); NEUTROPHILS # (AUTO) 9.8 K/uL (1.8-7.7); NEUTROPHILS % (AUTO) 92.7 % (40.0-70.0); PLATELET COUNT (AUTO) 168 K/uL (130-430); RED BLOOD CELL COUNT(AUTO) 3.42 MIL/uL (4.2-6.2); RED CELL DISTRIBUTION WIDTH 13.9 % (9.0-15.0); WHITE BLOOD COUNT (AUTO) 10.6 K/uL (4.8-10.8)
[2019-02-24 15:45] LABS: ANION GAP 7 (5-15); CALCIUM 8.2 mg/dL (8.4-11.0); CHLORIDE 107 mmol/L (98-107); CREATININE 0.67 mg/dL (0.55-1.30); GLUCOSE 258 mg/dL (70-99); POTASSIUM 3.7 mmol/L (3.5-5.1); SODIUM SERUM 141 mmol/L (136-145); UREA NITROGEN, BLOOD 33 mg/dL (8-21)
--- NOTE | 2019-02-24 15:52 | NUR ---
RN rounds patient resting in bed, eyes closed, breathing is even and unlabored, no signs of distress, RT at bedside, continuing to monitor the patient, bed in lowest position, three side rails up, bed alarm on, bed close to nursing station, fall and aspiration precautions in place.
[2019-02-24] MEDS: KCL 20 mEq in NS 1000 mL 1,000 ML IV SCH (17:35)
--- NOTE | 2019-02-24 17:53 | NUR ---
RN rounds/Medication patient resting in bed, awake, MD made aware of low BP, no further orders, patient has no signs of distress, IV antibiotic hung and infusing well, IV line is patent and infusing well, blood glucose checked and insulin coverage provided per MD orders, no other needs at this time, bed in lowest position, three side rails up, bed alarm on, bed close to nursing station, fall and aspiration precautions in place.
--- NOTE | 2019-02-24 18:29 | NUR ---
Closing note patient resting in bed, awake, no signs of pain, no signs of distress, all needs met, will endorse report to NOC shift nurse, bed in lowest position, three side rails up, bed alarm on, bed close to nursing station, fall and aspiration precautions in place.
[2019-02-24] MEDS: ATORVASTATIN 20 MG TABLET GT SCH (21:16)
--- NOTE | 2019-02-24 21:49 | NUR ---
noted to have persistent cough and Dr Kim paged for orders,
--- NOTE | 2019-02-24 21:57 | NUR ---
Dr Kim with orders and carried out
[2019-02-24] MEDS ORDERED: guaiFENesin/DEXTROMETHORPHAN 118 ML PO SCH (22:00)
[2019-02-24] MEDS ORDERED: guaiFENesin/DEXTROMETHORPHAN 118 ML GT SCH (23:00)
[2019-02-25 01:50] VITALS: BP_SYST 102
[2019-02-25] MEDS: KCL 20 mEq in NS 1000 mL 1,000 ML IV SCH ×2 (03:10→14:28)
[2019-02-25] MEDS: LevALBUTEROL HCL 1.25 MG/0.5 ML *CONC.* VIAL.NEB (XOPENEX CONC.) INH SCH ×5 (03:11→23:20)
[2019-02-25 03:51] VITALS: BP_SYST 110
--- NOTE | 2019-02-25 03:53 | NUR ---
patient heart rate 120 . vital signs check and recorded, tylenol dose given for pain and will infom Dr Gerard about the heart rate and patient inability to sleep.
--- NOTE | 2019-02-25 04:00 | NUR ---
PATIENT HEART RATE TO 104/MIN. ASLEEP. WITH NO SIGNS OF DISTRESS.
[2019-02-25] MEDS: PIPERACILLIN/TAZO 3.375 GM in NS 50 ML IV SCH ×4 (05:12→23:02)
[2019-02-25] MEDS ORDERED: guaiFENesin/DEXTROMETHORPHAN 118 ML GT SCH (06:00)
[2019-02-25] MEDS: methylPREDNISolone SOD SUCC 40 MG/ML VIAL IVP SCH ×4 (06:10→23:02)
[2019-02-25] MEDS: INSULIN REGULAR, HUMAN 100 UNITS/ML, 10 ML VIAL (humuLIN R) SUBCUT PRN ×2 (07:03→11:19)
--- NOTE | 2019-02-25 07:21 | NUR ---
COUGH MEDICATION DUE NOT AVAILABLE. REPORT GIVEN TO THE DAY SHIFT RN FOLLOW UP WITH THE MEDICATION IN THE PHARMACY,STILL NOTED HARD NON PRODUCTIVE COUGH
--- NOTE | 2019-02-25 08:10 | NUR ---
Opening note patient resting in bed, a/ox1, reoriented to place, time and event, no signs of pain, no signs of distress, patient becomes irritable at times, assessment complete, IV line is patent and infusing well, patient is on 3L via nasal cannula O2 saturation is 99% at this time, patient has G tube, no residual output at this time, Snow Catheter draining to gravity, continuing to monitor patient, bed in lowest position, three side rails up, bed alarm on, bed close to nursing station, fall and aspiration precautions in place.
[2019-02-25 08:13] VITALS: BP_SYST 116
[2019-02-25] MEDS: DOCUSATE SODIUM 100 MG CAPSULE PO SCH ×2 (09:00→20:37)
[2019-02-25] MEDS ORDERED: VANCOMYCIN HCL 1,000 MG in NS 250 ML IV SCH (09:00)
[2019-02-25] MEDS: FAMOTIDINE 20 MG TABLET GT SCH (09:15)
[2019-02-25] MEDS: METOPROLOL TARTRATE 25 MG TABLET GT SCH (09:15)
--- NOTE | 2019-02-25 09:23 | NUR ---
Medication patient resting in bed, eyes closed, breathing is even and unlabored, no signs of distress, held Colace GT at this time due to medication being a capsule and not being able to crush med, no residual output from G tube, patient tolerated medication administration well, continuing to monitor, bed in lowest position, three side rails up, bed alarm on, fall and aspiration precautions in place.
--- NOTE | 2019-02-25 11:24 | NUR ---
RN rounds/Medication patient resting in bed, awake, denies pain, no signs of distress, IV antibiotic hung and infusing well, IV line is patent and infusing well, blood glucose checked and insulin coverage provided per MD orders, no other needs at this time, bed in lowest position, three side rails up, bed alarm on, bed close to nursing station, fall and aspiration precautions in place.
[2019-02-25 12:25] VITALS: BP_SYST 118
--- NOTE | 2019-02-25 14:11 | NUR ---
Nutrition Assessment (short note d/t lack of time) Admit Dx: Pneumonia, Sepsis A- RD reviewed pt's current EMR including diet Hx, physician notes, nursing notes, pertinent labs/meds/procedures, care trends and care activity. RD Notification received. Patient seen in bed, EN infusing per MD orders. 188ml infused at time of visit earlier today. Per hard chart review, pt on Jevity 1.5 at 65ml/hr x20hrs at which provides 1950 kcal/day. RD also noted elevated BG lab values (258H, POC BG 196H). Current EN regimen provides 2340 kcal, 99 gm protein and 1786ml free water daily and meets adequate nutrition. Current Nutrition Support: Jevity 1.5 at 65ml/hr, FWF 150ml Q6H via GT Ht: 5'10 Wt: 159#/ 72 kg BMI: 22.8 kg/m2 %IBW: 96 IBW: 166#/ 75 kg ESTIMATED NUTRITIONAL REQUIREMENTS CALORIES/DAY: 8445-1616 kcal/day (30-35 kcal/kg CBW for COPD) PROTEIN/DAY: 72-86 g,/day (1-1.2 gmkg CBW for Geriatric maintenance) FLUID/DAY: 1.8 L/day (25ml/kg CBW for Geriatric maintenance) D: Altered nutrition-related labs r/t medication AEB steroid use and elevated BG and POC BG lab values. I: Recommend continuing Jevity 1.5 at 65ml/hr, FWF 150ml Q6H via GT Provides: 2340 kcal, 99 gm protein and 1786ml free water daily. Meets: 93% of upper end of est calorie needs and 115% of upper end of est protein needs. M: Monitor EN tolerance and intake w/ goal of pt meeting at least 75% of estimated nutritional needs, labs trending WNL, normal GI function, skin integrity/wt maintenance. E: RD to F/U within 2-3 days DOMINGA ZULETA
--- NOTE | 2019-02-25 14:19 | NUR ---
Dietitian Recommendation Recommend continuing Jevity 1.5 at 65ml/hr, FWF 150ml Q6H via GT Provides: 2340 kcal, 99 gm protein and 1786ml free water daily. Meets: 93% of upper end of est calorie needs and 115% of upper end of est protein needs. ALF, RD
--- NOTE | 2019-02-25 14:30 | NUR ---
RN Rounds/Dr. Kim rounds patient resting in bed, awake, new tubefeeding hung and infusing, no residual output from G tube at this time, IV fluids hung and infusing well, IV line is patent, no s/s of infiltration, continuing to monitor, bed in lowest position, three side rails up, bed alarm on, bed close to nursing station, fall and aspiration precautions in place. Dr. Kim rounded on the patient, will follow up with any new orders. Waiting on pharmacy to deliver Robitussin at this time, will follow up as needed. Addendum: 02/25/19 at 1524 by Vincent Davis RN Robitussin administered per MD orders, no residual output from G tube, patient tolerated well.
[2019-02-25] MEDS: guaiFENesin/DEXTROMETHORPHAN 118 ML GT SCH ×2 (15:15→23:01)
[2019-02-25 16:10] VITALS: BP_SYST 124
[2019-02-25] MEDS: RIVAROXABAN 10 MG TABLET PO SCH (17:49)
--- NOTE | 2019-02-25 17:53 | NUR ---
RN rounds/Medication patient resting in bed, awake, IV antibiotic hung and infusing well, IV line is patent and infusing well, blood glucose checked and no insulin coverage provided per MD orders, no residual output from G tube, administered blood thinner at this time, no other needs at this time, bed in lowest position, three side rails up, bed alarm on, bed close to nursing station, fall and aspiration precautions in place.
--- NOTE | 2019-02-25 18:54 | NUR ---
Closing note patient resting in bed, awake, no signs of distress, all needs met, will endorse report, bed in lowest position, three side rails up, bed alarm on, fall,isolation and aspiration precautions in place. Addendum: 02/25/19 at 1856 by Vincent Davis RN wrong patient patient resting in bed, no signs of distress, will endorse report.
--- NOTE | 2019-02-25 19:58 | NUR ---
OPENING NOTE Received bedside report from ROHINI Kaur. Patient resting in bed, awake, alert and oriented x 1, reoriented to place, time and event, patient denies pain, no s/s of distress at this time. Patient has an IV on right forearm 18g, patent and benign, no s/s of infection or infiltration at this time, IVF running. Patient is on 3L via nasal cannula O2 saturation is 97% at this time, patient has G tube, no residual output at this time, GT feeding running. Patient has a Snow Catheter secured, draining to gravity. Will continue to monitor patient, bed is at lowest position, three side rails up, bed alarm is on, and close to nursing station, fall/safety and aspiration precautions in place. Addendum: 02/25/19 at 2226 by Hansel Garrett RN Educated patient on plan of care and call light system, patient just said "yea." Addendum: 02/26/19 at 0028 by Hansel Garrett RN IV on left hand is infiltrated, discontinued IV, patient tolerated it well.
[2019-02-25 20:05] VITALS: BP_SYST 116
[2019-02-25] MEDS: ATORVASTATIN 20 MG TABLET GT SCH (20:40)
[2019-02-25] MEDS: VANCOMYCIN HCL 1,000 MG in NS 250 ML IV SCH (20:40)
--- NOTE | 2019-02-25 20:45 | NUR ---
MEDICATIONS/ROUNDS Patient is resting in bed, awake, breathing evenly and nonlabored. BS checked, no coverage needed at this time. Educated patient on medications, patient said "ok." Administered medications, patient tolerated them well. No other needs at this time. No s/s of distress at this time. Fall/safety/aspiration precautions.
--- NOTE | 2019-02-25 22:30 | NUR ---
ROUNDS Patient is resting in bed, awake, breathing evenly and nonlabored. No other needs at this time. No s/s of distress at this time. Fall/safety/aspiration precautions.
--- NOTE | 2019-02-25 23:10 | NUR ---
MEDICATIONS/ROUNDS Patient is resting in bed, awake, breathing evenly and nonlabored. RT at bedside. GT dressing changed. Educated patient on medications, patient said "yea." Administered medications, patient tolerated them well. No other needs at this time. No s/s of distress at this time. Fall/safety/aspiration precautions.
--- NOTE | 2019-02-26 01:05 | NUR ---
ROUNDS Patient is resting in bed, awake, breathing evenly and nonlabored. IVF running, GT feeding running, patient is tolerating it well. No s/s of distress at this time. No other needs at this time. Fall/safety/aspiration precautions.
[2019-02-26 01:10] VITALS: BP_SYST 117
[2019-02-26] MEDS: KCL 20 mEq in NS 1000 mL 1,000 ML IV SCH ×3 (01:56→21:55)
--- NOTE | 2019-02-26 02:10 | NUR ---
ROUNDS Patient is resting in bed, awake, breathing evenly and nonlabored. Replaced IVF, IVF running, patient is tolerating it well. No s/s of distress at this time. No other needs at this time. Fall/safety/aspiration precautions.
[2019-02-26] MEDS: LevALBUTEROL HCL 1.25 MG/0.5 ML *CONC.* VIAL.NEB (XOPENEX CONC.) INH SCH ×5 (02:49→20:10)
--- NOTE | 2019-02-26 04:15 | NUR ---
ROUNDS Patient is resting in bed, awake, breathing evenly and nonlabored. Hygiene care performed. No s/s of distress at this time. No other needs at this time. Fall/safety/aspiration precautions.
[2019-02-26] MEDS: guaiFENesin/DEXTROMETHORPHAN 118 ML GT SCH ×3 (05:50→21:57)
[2019-02-26] MEDS: PIPERACILLIN/TAZO 3.375 GM in NS 50 ML IV SCH ×4 (05:51→23:32)
[2019-02-26] MEDS: methylPREDNISolone SOD SUCC 40 MG/ML VIAL IVP SCH ×4 (05:52→23:32)
--- NOTE | 2019-02-26 06:05 | NUR ---
CLOSING NOTES Patient is resting in bed, awake, breathing evenly and nonlabored. BS checked, no coverage needed. IVF running, no s/s of infection or infiltration on IV line noted, GT feeding running, patient is tolerating it well. Educated patient on medications, patient stated "ok," administered medications, patient is tolerating them well. Will endorse care to morning shift RN. Fall/safety/aspiration precautions.
[2019-02-26 08:00] VITALS: BP_SYST 122
--- NOTE | 2019-02-26 08:00 | NUR ---
initial notes rec patient awake and with periods of confusion. pt is verbally abusive as well. resop easy and unlabored. no sob noted, bed to the lowest position and side rails up and locked. will continue to monitor patient.
[2019-02-26] MEDS: VANCOMYCIN HCL 1,000 MG in NS 250 ML IV SCH ×2 (10:30→21:56)
[2019-02-26] MEDS: METOPROLOL TARTRATE 25 MG TABLET GT SCH (10:31)
[2019-02-26] MEDS: DOCUSATE SODIUM 100 MG CAPSULE PO SCH ×2 (10:31→21:56)
[2019-02-26] MEDS: FAMOTIDINE 20 MG TABLET GT SCH (10:31)
[2019-02-26 11:25] VITALS: BP_SYST 130
--- NOTE | 2019-02-26 12:00 | NUR ---
rounds struggled with the patient to take his accucheck but refused. bed to the lowest position and side rails up and locked. no sob noted.
[2019-02-26 15:28] VITALS: BP_SYST 107
--- NOTE | 2019-02-26 16:00 | NUR ---
rounds sleeps at intervals and watching tv in between. with periods of confusion. bed to the lowest position and side rails up and locked.
[2019-02-26] MEDS: RIVAROXABAN 10 MG TABLET PO SCH (16:27)
--- NOTE | 2019-02-26 18:30 | NUR ---
closing notes pt sleeping at this time after was cleaned and repositioned. no hypo hyperglycemic reaction noted. was able to give meds through the gt. bed to the lowest positon and side rails up and locked. stable and needs attended.
[2019-02-26 19:50] VITALS: BP_SYST 135
--- NOTE | 2019-02-26 19:50 | NUR ---
OPENING NOTES Received bedside report from ROHINI Smalls. Patient is alert, awake, oriented x1. Patient is breathing evenly and nonlabored on 3L NC. Patient has an IV on right forearm 18g, patent and benign, no s/s of infiltration or infection noted, IVF running, GT running, patient is tolerating it well. Patient has a Snow catheter secured and draining by gravity. Educated patient on plan of care, call light system, and fall/safety/aspiration precautions, patient said "ok." Bed is at lowest position, locked and armed. Will continue to monitor.
[2019-02-26] MEDS: ATORVASTATIN 20 MG TABLET GT SCH (21:56)
--- NOTE | 2019-02-26 21:57 | NUR ---
MEDICATIONS/ROUNDS Patient is resting in bed, awake, breathing evenly and nonlabored. BS checked, no coverage needed at this time. Educated patient on medications, patient said "ok." Administered medications, patient tolerated them well. No other needs at this time. No s/s of distress at this time. Fall/safety/aspiration precautions. Will continue to monitor.
--- NOTE | 2019-02-26 23:40 | NUR ---
MEDICATIONS/ROUNDS Patient is resting in bed, awake, breathing evenly and nonlabored. Educated patient on medications, patient said "ok." Administered medications, patient tolerated them well. No other needs at this time. No s/s of distress at this time. Fall/safety/aspiration precautions.
--- NOTE | 2019-02-27 00:15 | NUR ---
ROUNDS Patient is resting in bed, awake, breathing evenly and nonlabored. Patient's IV on the right forearm 18g became infiltrated, discontinued the IV and restarted on another site on the right forearm 22g. Patient tolerated the procedure well. No s/s of infection or infiltration on new IV site, IVF restarted, patient tolerated it well. No s/s of distress at this time. No other needs at this time. Fall/safety/aspiration precautions.
--- NOTE | 2019-02-27 02:01 | NUR ---
ROUNDS Patient is resting in bed, awake, breathing evenly and nonlabored. IVF running, GT feeding running, patient is tolerating it well. Patient denies any pain at this time. No s/s of distress at this time. No other needs at this time. Fall/safety/aspiration precautions.
[2019-02-27] MEDS: LevALBUTEROL HCL 1.25 MG/0.5 ML *CONC.* VIAL.NEB (XOPENEX CONC.) INH SCH ×5 (02:21→15:34)
[2019-02-27 02:22] VITALS: BP_SYST 120
--- NOTE | 2019-02-27 03:54 | NUR ---
ROUNDS Patient is resting in bed, eyes closed, breathing evenly and nonlabored. GT feeding and line changed. No s/s of distress at this time. No other needs at this time. Fall/safety/aspiration precautions.
[2019-02-27] MEDS: methylPREDNISolone SOD SUCC 40 MG/ML VIAL IVP SCH ×3 (05:38→17:14)
[2019-02-27] MEDS: PIPERACILLIN/TAZO 3.375 GM in NS 50 ML IV SCH ×3 (05:38→17:13)
[2019-02-27] MEDS: guaiFENesin/DEXTROMETHORPHAN 118 ML GT SCH ×2 (05:39→14:22)
--- NOTE | 2019-02-27 06:04 | NUR ---
CLOSING NOTES Patient is resting in bed, awake, breathing evenly and nonlabored. Educated patient on medications, patient didn't respond. Administered medications, patient tolerated them well. Patient continues to be uncooperative with care, yelling and screaming, but denies any pain at this time. Will endorse care to morning shift nurse. No other needs at this time. No s/s of distress at this time. Fall/safety/aspiration precautions. Addendum: 02/27/19 at 0612 by Hansel Garrett RN GT dressing change done.
[2019-02-27 07:15] LABS: ALANINE AMINOTRANSFERASE 66 U/L (12-78); ALBUMIN 2.2 g/dL (3.4-4.8); ANION GAP 6 (5-15); ASPARTATE AMINOTRANSFERASE 26 U/L (10-37); CALCIUM 7.8 mg/dL (8.4-11.0); CHLORIDE 112 mmol/L (98-107); CREATININE 0.59 mg/dL (0.55-1.30); GLUCOSE 150 mg/dL (70-99); POTASSIUM 4.4 mmol/L (3.5-5.1); SODIUM SERUM 146 mmol/L (136-145); TOTAL BILIRUBIN 0.3 mg/dL (0.0-1.0); UREA NITROGEN, BLOOD 31 mg/dL (8-21)
--- NOTE | 2019-02-27 07:30 | NUR ---
Initial notes: Patient sleeping. Stable. I.V. access patent. Gtube in placed. Call light within reach. Safety measures in placed.Report received at bedside.
[2019-02-27 08:00] VITALS: BP_SYST 118
[2019-02-27] MEDS: METOPROLOL TARTRATE 25 MG TABLET GT SCH (08:41)
[2019-02-27] MEDS: VANCOMYCIN HCL 1,000 MG in NS 250 ML IV SCH (08:41)
[2019-02-27] MEDS: FAMOTIDINE 20 MG TABLET GT SCH (08:41)
[2019-02-27] MEDS: DOCUSATE SODIUM 100 MG CAPSULE PO SCH (08:41)
[2019-02-27] MEDS ORDERED: COMMUNICATION ORDER XX ONE (08:45)
[2019-02-27] MEDS ORDERED: RIVAROXABAN 10 MG TABLET GT SCH (08:46)
[2019-02-27] MEDS ORDERED: DOCUSATE SODIUM 100 MG/10 ML UDC GT SCH (08:47)
[2019-02-27] MEDS ORDERED: DOCUSATE SODIUM 100 MG/10 ML UDC PO SCH (08:47)
--- NOTE | 2019-02-27 09:04 | NUR ---
rounds: patient still sleeping. no distress noted.
--- NOTE | 2019-02-27 11:43 | NUR ---
DC Planning: s/w Terrance at [facility], the pt is on 7 days bed hold. The pt may return back to room 5C when discharges from [facility].-- ROHINI Sultana made aware.
[2019-02-27 12:09] VITALS: BP_SYST 112
[2019-02-27] MEDS: KCL 20 mEq in NS 1000 mL 1,000 ML IV SCH (12:29)
[2019-02-27] MEDS: INSULIN REGULAR, HUMAN 100 UNITS/ML, 10 ML VIAL (humuLIN R) SUBCUT PRN (12:31)
--- NOTE | 2019-02-27 14:17 | NUR ---
rounds: Patient sleeping. no distress noted.
[2019-02-27 16:14] VITALS: BP_SYST 111
[2019-02-27 17:00] VITALS: BP_SYST 111
--- NOTE | 2019-02-27 17:31 | NUR ---
[facility]: Report given to BOUBACAR Ortiz.
--- NOTE | 2019-02-27 17:34 | NUR ---
Family Informed: Ysabel Santana Corral, brother of patient, informed of the transfer to [facility].
--- NOTE | 2019-02-27 18:10 | NUR ---
PT TRANSFERRED to [facility] Report given to ROHINI Ortiz. Transfer packet with Transfer Orders and Medication Reconciliation form given to EMT with report. Exitcare provided. [facility] ID band removed, replaced with ID band with pt's name and . IV catheter removed, intact and dressing applied, no active bleeding. All belongings sent with patient. Patient left floor via gurney escorted by EMT in no distress.
[2019-02-27] MEDS ORDERED: VANCOMYCIN HCL 1,500 MG in NS 250 ML IV SCH (21:00)
== END 2019-02-27 18:30 | DRG 871 ==
LOC: SED 03:12 → STU 10:14
PROVIDERS: ADMIT Family Medicine; ATTEND Family Medicine
DX: A41.9 Sepsis, unspecified organism (principal); J69.0 Pneumonitis due to inhalation of food and vomit; I82.403 Acute embolism and thrombosis of unspecified deep veins of lower extremity, bilateral; G93.40 Encephalopathy, unspecified; J44.1 Chronic obstructive pulmonary disease with (acute) exacerbation; I10 Essential (primary) hypertension; N40.0 Benign prostatic hyperplasia without lower urinary tract symptoms; F03.90 Unspecified dementia, unspecified severity, without behavioral disturbance, psychotic disturbance, mood disturbance, and anxiety; R09.02 Hypoxemia; Z87.891 Personal history of nicotine dependence; Z88.8 Allergy status to other drugs, medicaments and biological substances; Z79.899 Other long term (current) drug therapy; Z86.73 Personal history of transient ischemic attack (TIA), and cerebral infarction without residual deficits; Z93.1 Gastrostomy status
CPT/HCPCS: 36415; 36600; 71045; 71275; 80048; 80053; 80202-TC; 82550-TC; 82803-TC; 82962; 83605; 83880; 84484; 85025; 85379; 85610-TC; 86710; 87040-TC; 87081; 93005; 93970; 94640; 94760; 96361; 96365; 96375; 99285; G0378; J0696; J1030; J1650; J1815; J2060; J2543; J2930; J3370; J3480; J7030; J7040; J7050; J7612; J7620; Q9967

== ENCOUNTER 2019-03-20 00:48 | Inpatient (IN) | payer OTHER, MEDICAID ==
[~2019-03-20] VITALS: Ht 177.8 cm; Wt 70.8 kg
[2019-03-20] VITALS (18 sets, daily range): BP systolic 82–136
[~2019-03-20 00:48] MED LIST changes: -ACET200V11 INH; -ALBU2TAB4 GT; -ASCO500W7 GT; +ATRMDI INH; -ENOX40DI8 SQ; -FAMO-132 GT; +FAMO20TA8 GT; -FURO-150 GT; -IPRA4AER INH; +LEVA1.2527 NEB; -NAPH1POW3 GT; +PRED10TA GT; -PRED20TA GT
--- NOTE | 2019-03-20 00:48 | NUR ---
Pt BIB ALS, placed to ER bed 03, to gown, to guest experience manager. Pt sent from [facility] r/t decreases O2 saturation and hypotension. Pt alert, responsive, non-verbal, arrives with O2 via SFM at 10 LPM, respirations labored, rhonchi and crackles to BBS. Pt HR 129, Dr. Dickerson made aware. 20 GA PIV LHA secure and patent, good blood return, easy NS flush. G-tube secure with dsg clean. F/C patent and secure with yellow urine to bag.
--- NOTE | 2019-03-20 01:00 | NUR ---
Dr. Dickerson at bedside.
[2019-03-20] MEDS ORDERED: PIPERACILLIN/TAZO 3.38 GM in D5W 50 ML IV ONE (01:15)
[2019-03-20] MEDS ORDERED: NS 1000 ML IV.SOLN IV ONE (01:15)
[2019-03-20] MEDS ORDERED: PIPERACILLIN/TAZOBACTAM 3.375 GM/VIAL (ZOSYN) IV ONE (02:13)
[2019-03-20 02:27] LABS: BASOPHILS % (AUTO) 0.2 % (0.0-2.0); EOSINOPHILS % (AUTO) 0.1 % (0.0-4.0); HEMATOCRIT 43.1 % (36-54); HEMOGLOBIN 14.5 g/dL (14.0-18.0); LYMPHOCYTES # (AUTO) 0.7 K/uL (1.0-5.5); LYMPHOCYTES % (AUTO) 6.1 % (20.5-51.5); MEAN CORPUSCULAR HEMOGLOBIN 35 pg (27-31); MEAN CORPUSCULAR HGB CONC 34 % (32-36); MEAN CORPUSCULAR VOLUME 102 fL (79.0-98.0); MONOCYTES # (AUTO) 0.7 K/uL (0.0-1.0); MONOCYTES % (AUTO) 6.3 % (1.7-9.3); NEUTROPHILS # (AUTO) 10.3 K/uL (1.8-7.7); NEUTROPHILS % (AUTO) 87.3 % (40.0-70.0); PLATELET COUNT (AUTO) 182 K/uL (130-430); RED BLOOD CELL COUNT(AUTO) 4.21 MIL/uL (4.2-6.2); RED CELL DISTRIBUTION WIDTH 14.6 % (9.0-15.0); WHITE BLOOD COUNT (AUTO) 11.8 K/uL (4.8-10.8)
[2019-03-20 02:42] LABS: INR 1.3 (0.80-1.20); PROTHROMBIN TIME 12.8 SECS (9.5-12.5)
[2019-03-20] MEDS ORDERED: DILTIAZEM HCL 25 MG/5 ML VIAL IVP ONE (03:00)
--- NOTE | 2019-03-20 03:12 | NUR ---
Cardizem 10 mg given SIVP to patent and secure PIV LHA for HR 160.
--- NOTE | 2019-03-20 03:15 | NUR ---
Per ABG, pO2 62. SPO2 88 - 90% on SFM at 6 LMP/NC. Dr. Dickerson aware. RT notified and at bedside. Awaiting orders per Dr. Dickerson.
[2019-03-20 03:24] LABS: ANION GAP 9 (5-15); CALCIUM 8.3 mg/dL (8.4-11.0); CHLORIDE 102 mmol/L (98-107); CREATININE 0.77 mg/dL (0.55-1.30); GLUCOSE 142 mg/dL (70-99); POTASSIUM 3.9 mmol/L (3.5-5.1); SODIUM SERUM 138 mmol/L (136-145); UREA NITROGEN, BLOOD 25 mg/dL (8-21)
[2019-03-20 03:27] LABS: BILIRUBIN,URINE NEGATIVE (NEGATIVE); CLARITY/URINE CLEAR (CLEAR); COLOR,URINE YELLOW (YELLOW); GLUCOSE,URINE NEGATIVE (NEGATIVE); KETONES,URINE TRACE (NEGATIVE); LEUKOCYTE ESTERASE ,URINE NEGATIVE (NEGATIVE); NITRITE, URINE NEGATIVE (NEGATIVE); PH,URINE 5.5 (5.0-8.0); PROTEIN URINE TRACE (NEGATIVE); UROBILINOGEN,URINE 0.2 (0.2-1.0)
--- NOTE | 2019-03-20 03:30 | NUR ---
HR 110. Pt resting quietly, even and non-labored respirations.
[2019-03-20 03:35] LABS: ALANINE AMINOTRANSFERASE 39 U/L (12-78); ALBUMIN 2.8 g/dL (3.4-4.8); ASPARTATE AMINOTRANSFERASE 26 U/L (10-37); TOTAL BILIRUBIN 0.6 mg/dL (0.0-1.0)
[2019-03-20 03:41] LABS: BLOOD, URINE TRACE (NEGATIVE)
[2019-03-20 03:44] LABS: BACTERIA,URINE FEW /HPF (None Seen); WBC,URINE 0-3 /HPF (0-3)
--- NOTE | 2019-03-20 03:45 | NUR ---
RT at bedside. Pt placed on NRB mask at 15 LPM. SPO2 98%.
[2019-03-20] MEDS ORDERED: NOREPINEPHRINE BITARTRATE 4 MG in NS 246 ML IV ONE (04:45)
[2019-03-20] MEDS ORDERED: NS 500 ML IV ONE (04:45)
--- NOTE | 2019-03-20 04:45 | NUR ---
B/P 86/47, P 103, SPO2 92%. Dr. Dickerson notified. Pt to receive NS Bolus 400 mL and begin Levophed drip.
--- NOTE | 2019-03-20 04:45 | NUR ---
Note wilfred in EDM - 03/20/19 at 0522 by KATHERINE B/P 86/47, R 103, SPO2 92%. Dr. Dickerson notified. Pt to receive NS Bolus 400 mL and begin Levophed drip.
--- NOTE | 2019-03-20 05:00 | NUR ---
Pt resting quietly, improvement noted to respirations.
[2019-03-20] MEDS ORDERED: NOREPINEPHRINE 4 MG/4 ML VIAL IV ONE (05:07)
--- NOTE | 2019-03-20 05:15 | NUR ---
Note wilfred in EDM - 03/20/19 at 0544 by KATHERINE T 97.6, P 94, R 20, B/P 82/53, SPO2 97% on NRB at 6 LPM. Levophed started at 10 mcg/min to patent and secure PIV LHA.
--- NOTE | 2019-03-20 05:15 | NUR ---
T 97.6, P 94, R 20, B/P 82/53, SPO2 97% on NRB at 15 LPM. Levophed started at 10 mcg/min to patent and secure PIV LHA.
--- NOTE | 2019-03-20 05:45 | NUR ---
B/P 128/57, P 82. Levophed drip decreased to 5 mcg/min. Pt resting quietly with even and non-labored respirations.
[2019-03-20] MEDS ORDERED: VANCOMYCIN HCL 1,000 MG in NS 250 ML IV ONE (06:15)
--- NOTE | 2019-03-20 06:30 | NUR ---
Pt resting quietly, even and non-labored respirations. Levophed continues at 5 mcg/min to patent PIV LHA, no s/s infiltration.
[2019-03-20] MEDS: LevALBUTEROL HCL 1.25 MG/0.5 ML *CONC.* VIAL.NEB (XOPENEX CONC.) INH SCH ×5 (07:00→23:51)
--- NOTE | 2019-03-20 07:30 | NUR ---
Pt report given to ROHINI Fitzgerald.
--- NOTE | 2019-03-20 08:00 | NUR ---
Received shift report from ICT SUPPORT ENGINEER using SBAR.
--- NOTE | 2019-03-20 08:30 | NUR ---
Medication reconciliation completed with information provided by LOYDA MOORE. Any prior medication reconciliation on file was reviewed and corrected.
[2019-03-20] MEDS ORDERED: RIVA20TA GT (08:34)
[2019-03-20] MEDS ORDERED: SSREG SUBCUT (08:35)
[2019-03-20] MEDS ORDERED: VANCOMYCIN HCL 1000 MG/VIAL IV ONE (08:47)
--- NOTE | 2019-03-20 08:57 | NUR ---
Note wilfred in EDM - 03/20/19 at 0924 by KATHERINE Patient will be admitted to care of Dr. Kim. Admitted to ICU unit. Will go to room 6. Belongings list completed. Complete and up to date summary report printed. SBAR report to be given at bedside with opportunity for questions.
[2019-03-20] MEDS ORDERED: DEXTROSE 50% JECT 50 ML DISP.SYRIN IVP PRN (09:00)
[2019-03-20] MEDS ORDERED: GLUCOSE 15 GM GEL (in 37.5 GM TUBE) PO PRN (09:00)
[2019-03-20] MEDS ORDERED: D5W 1,000 ML IV PRN (09:00)
[2019-03-20] MEDS ORDERED: INSULIN REGULAR, HUMAN 100 UNITS/ML, 10 ML VIAL (humuLIN R) SUBCUT PRN ×2 (09:00)
[2019-03-20] MEDS ORDERED: LevALBUTEROL HCL 1.25 MG/0.5 ML *CONC.* VIAL.NEB (XOPENEX CONC.) INH PRN (09:00)
--- NOTE | 2019-03-20 09:00 | NUR ---
Received PT from ER. Transported by damir with BRICK SETTER and student nurse. Received with Levophed running at 5mcg/kg/min. SR on monitor. Pt sleeping and no signs of pain or in distress. Bed locked and in lowest position with call light in place. Will contact Brother for pt history.
--- NOTE | 2019-03-20 09:01 | NUR ---
MD Rounds Dr Zarate bedside. Orders received.
--- NOTE | 2019-03-20 09:30 | NUR ---
Nursing note Examined PT from head to toe. Skin intact with not signs of redness on nancy prominences, sacrum, heals, back or shoulder. Pt had BM, provided perianal care and changed bedding. Pt tolerated well.
[2019-03-20] MEDS ORDERED: VANCOMYCIN HCL 1,000 MG in NS 250 ML IV SCH (10:00)
--- NOTE | 2019-03-20 10:00 | NUR ---
IV PLACEMENT: # 22 gauge angiocath placed to right arm. Use of asceptic technique. Opsite placed over site. Blood return noted. Flushed with 10 cc of normal saline. No evidence of infiltration noted. Patient tolerated well.
[2019-03-20] MEDS: KCL 20 mEq in D5NS 1000 mL 1,000 ML IV SCH ×3 (10:46→21:33)
--- NOTE | 2019-03-20 11:30 | NUR ---
FLU VACCINE Called [facility] Hernandez for flu vaccine status. Stated she will call back with results.
[2019-03-20] MEDS: PIPERACILLIN/TAZO 3.375 GM in NS 50 ML IV SCH ×3 (11:31→23:48)
[2019-03-20] MEDS: FAMOTIDINE 20 MG TABLET GT SCH (11:43)
[2019-03-20] MEDS: DOCUSATE SODIUM 100 MG/10 ML UDC GT SCH ×2 (11:43→21:24)
[2019-03-20] MEDS: PREDNISONE 10 MG TABLET GT SCH ×2 (11:44→21:24)
[2019-03-20] MEDS: METOPROLOL TARTRATE 25 MG TABLET GT SCH (11:44)
[2019-03-20] MEDS: LEVOFLOXACIN 250 MG/D5W 50 ML IV SCH (11:52)
--- NOTE | 2019-03-20 12:30 | NUR ---
CT HEAD Transported to Radiology and returned with no incident. Pt HR SR RR 18, O2 Sat 99%, BP 95/58.
--- NOTE | 2019-03-20 14:00 | NUR ---
SCD Orders received from Dr Monae. Place on pt.
--- NOTE | 2019-03-20 15:46 | NUR ---
Paged Dr. Monae for orders. Spoke with exchange.
[2019-03-20] MEDS ORDERED: NOREPINEPHRINE BITARTRATE 4 MG in D5W 246 ML IV PRN (16:00)
--- NOTE | 2019-03-20 16:30 | NUR ---
Pt opened eyes for neurocheck. Asked questions regarding A/O but pt closed eyes and went back to sleep. Will continue to monitor.
[2019-03-20] MEDS: RIVAROXABAN 20 MG TABLET GT SCH (17:18)
--- NOTE | 2019-03-20 17:30 | NUR ---
Provided partial bed bath. Cleanse face and changed gown. Pt tolerated well.
--- NOTE | 2019-03-20 19:09 | NUR ---
Endorsement/Closing Notes Provided shift report to night RN using SBAR. Pt resting with no signs of pain or distress. Levophed running @ 6mcg/kg/min. BP 91/63. Bed locked and in lowest position with call light in place.
[2019-03-20] MEDS: ATORVASTATIN 20 MG TABLET GT SCH (21:24)
[2019-03-21] VITALS (24 sets, daily range): BP systolic 97–138
[2019-03-21] MEDS: INSULIN REGULAR, HUMAN 100 UNITS/ML, 10 ML VIAL (humuLIN R) SUBCUT PRN ×4 (00:02→17:17)
[2019-03-21] MEDS ORDERED: NOREPINEPHRINE 4 MG/4 ML VIAL IV ONE (02:18)
[2019-03-21] MEDS: KCL 20 mEq in D5NS 1000 mL 1,000 ML IV SCH ×4 (02:55→20:19)
--- NOTE | 2019-03-21 03:33 | NUR ---
RECEIVED REPORT FROM [facility] PATIENT IS AWAKE FOLLOWED VERY SIMPLE COMMAND IS ABLE TO ANSWER WHEN ASKED,PATIENT IS IN SINUS RYTHM W/ FREQUENT PVC,RESPIRATION IS REGULAR HAS COURSE RHONCHI AND HAS CONGESTED COUGH BUT HE IS ANOT ABLE TO ECPECTORATE.PATIENT IS SATURATING 98% ON 4 LITERS NASAL CANNULA.PATIENT IS ON LEVOPHED AT 6 MCG/MIN INFUSING THRU HIS PERIPHERAL IV ON LEFT HAND BUT GETTING VERY POSITTIONAL AND WHEN IRRIGATED PATIENT CPMPLIN OF PAIN,SO LEVOPHED SWITHED AND HOOKED IN ON THE PERIPHERAL IV IN RIGHT FOREAR. HIS MAITEMCE IV IS INFUSING AT 150CC/HR,PATIENT ON CONTINOUS FEEDING WITH JEVITY GOING THRU HIS PEG AT 65CC/HR.PATIENT HAS ALSO SUPRAPUBIC CATHETER URINE IS CLEAR BERENICE.
[2019-03-21] MEDS: LevALBUTEROL HCL 1.25 MG/0.5 ML *CONC.* VIAL.NEB (XOPENEX CONC.) INH SCH ×3 (04:42→23:00)
[2019-03-21] MEDS: PIPERACILLIN/TAZO 3.375 GM in NS 50 ML IV SCH ×3 (05:36→17:13)
[2019-03-21 06:45] LABS: BASOPHILS % (AUTO) 0.2 % (0.0-2.0); EOSINOPHILS # (AUTO) 0.1 K/uL (0.0-0.4); EOSINOPHILS % (AUTO) 0.6 % (0.0-4.0); HEMATOCRIT 34.1 % (36-54); HEMOGLOBIN 11.4 g/dL (14.0-18.0); LYMPHOCYTES # (AUTO) 0.8 K/uL (1.0-5.5); LYMPHOCYTES % (AUTO) 9.1 % (20.5-51.5); MEAN CORPUSCULAR HEMOGLOBIN 35 pg (27-31); MEAN CORPUSCULAR HGB CONC 33 % (32-36); MEAN CORPUSCULAR VOLUME 104 fL (79.0-98.0); MONOCYTES # (AUTO) 0.5 K/uL (0.0-1.0); MONOCYTES % (AUTO) 5.8 % (1.7-9.3); NEUTROPHILS # (AUTO) 7.7 K/uL (1.8-7.7); NEUTROPHILS % (AUTO) 84.3 % (40.0-70.0); PLATELET COUNT (AUTO) 156 K/uL (130-430); RED BLOOD CELL COUNT(AUTO) 3.28 MIL/uL (4.2-6.2); RED CELL DISTRIBUTION WIDTH 14.7 % (9.0-15.0); WHITE BLOOD COUNT (AUTO) 9.1 K/uL (4.8-10.8)
[2019-03-21 07:04] LABS: ALANINE AMINOTRANSFERASE 28 U/L (12-78); ALBUMIN 2.1 g/dL (3.4-4.8); ANION GAP 7 (5-15); ASPARTATE AMINOTRANSFERASE 18 U/L (10-37); CALCIUM 7.5 mg/dL (8.4-11.0); CHLORIDE 110 mmol/L (98-107); CREATININE 0.55 mg/dL (0.55-1.30); GLUCOSE 239 mg/dL (70-99); SODIUM SERUM 141 mmol/L (136-145); TOTAL BILIRUBIN 0.4 mg/dL (0.0-1.0); UREA NITROGEN, BLOOD 18 mg/dL (8-21)
[2019-03-21] MEDS: METOPROLOL TARTRATE 25 MG TABLET GT SCH (09:00)
[2019-03-21] MEDS: DOCUSATE SODIUM 100 MG/10 ML UDC GT SCH ×2 (09:27→20:53)
[2019-03-21] MEDS: PREDNISONE 10 MG TABLET GT SCH ×2 (09:28→20:53)
[2019-03-21] MEDS: FAMOTIDINE 20 MG TABLET GT SCH (09:28)
[2019-03-21] MEDS: LEVOFLOXACIN 250 MG/D5W 50 ML IV SCH (11:57)
--- NOTE | 2019-03-21 12:50 | NUR ---
DR. SU SEE PATIENT, ORDERED FOLLOW UP LAB IN A.M
--- NOTE | 2019-03-21 17:13 | NUR ---
RECEIVED LAB. RESULT: MRSA NARES POSITIVE, ORDERED ON CONTACT ISOLATION
[2019-03-21] MEDS: RIVAROXABAN 20 MG TABLET GT SCH (17:16)
--- NOTE | 2019-03-21 17:33 | NUR ---
AT [address] URIBE REGARDING OF MRSA NARES POSITIVE, ORDERED DISCONTINUE LEVAQUIN, AND START VANCOMYCIN THERAPY, ORDERED VANCOMYCIN PHARMACIST TO DOSE
--- NOTE | 2019-03-21 17:35 | NUR ---
ID MD Dr Stanton was called, re: PT MRSA NARES. SPOKE TO BRADY.
[2019-03-21] MEDS ORDERED: VANCOMYCIN HCL 1 GM/NS PREMIX 250 ML IV SCH (19:00)
--- NOTE | 2019-03-21 19:28 | NUR ---
GIVE COMPLETE NURSING REPORT TO CLEANER BEATRIZ Belle
--- NOTE | 2019-03-21 20:00 | NUR ---
PATIENT WAS ACCEPTED AND ASSESS DONE AWAKE AND RESPOND WELL TO ALL COMMANDS , PATIENT HAS AN TUBE FEEDING PATIENT HE CAN EAT WITH HIS MONTH TALKING TO SELF AND ESTEBAN PLAY WITH HIS CLOTHING AND INSIDE HIS ORAL CAVITY, TRYING TO PULL SOMETHING OUT ABLE TO MOVED ALL EX.KAROLINE CHES PAIN OR SOB, HAS ON NASAL CANNULA AT TWO LITE WILL NOT LEAVE ON WILL TAKE OFF ,VITAL SIGNS STABLE , LEVOPHED DRIP WAS TURN OFF, WILL MONITOR THE BP ,NOTICE THE HEART RATE HAS INCREASED 130-150 WILL MONITOR CLOSELY 2330 HEART RATE NOW 160-190 , DR VARGAS WAS CALLED , RETURNED WITH IN 20 MIN GAVE THE UPDATE ON THE PATIENT CONDITION GAVE SOME ORDER EKG,DECREASED IVF TO 100, AND CONSULT FOR CHANDRAKANT TOLEDO TO MONITOR THE PATIENT DR ARNOLD WAS CALLED AND SPOKE WITH THE NURSE UP DATE ON THE PATIENT CONDITION ,WANT TO HAVE THE EKG FAX TO HIM THIS WAS DONE WILL WANT FOR RETURN CALL, RENE
[2019-03-21] MEDS: ATORVASTATIN 20 MG TABLET GT SCH (20:54)
--- NOTE | 2019-03-21 23:15 | NUR ---
DR. LACY TOLEDO PAGED FOR ORDERS AT THIS TIME. SPOKE WITH RAFAEL AT THE EXCHANGE.
--- NOTE | 2019-03-21 23:25 | NUR ---
CONSULT: DR. BATEMAN STAT CONSULT CALLED FOR DR. BATEMAN AT THIS TIME. DR. ARNOLD IS FINAL FINISHER. SPOKE WITH [facility] AT THE EXCHANGE. WILL AWAIT MD CALL BACK.
[2019-03-22] VITALS (24 sets, daily range): BP systolic 93–158
--- NOTE | 2019-03-22 | NUR ---
PATIENT IS MORE CONFUSED THAN BEFORE PULLING AT IV SITE AND REMOVING HIS GOWN , WHEN ASK TO STOP WILL KAROLINE OF DOING ANYTHING GET AGITATED AND COMBATIVE, STRIKING OUT AT PERSON TAKEN CARE OF HIM, PATIENT WILL NEED AN SITTER 0600 PATIENT HAD PULL OUT THE SALINE LOCK LEFT HAND AND DENIES , THE IV SITE ON THE RIGHT HAND WAS WRAP WITH LEVIN TO PREVENT BEING TOUCH WILL NEED TO CONTINUED WITH PLAN OF CARE, OFF THE LEVOPHED DRIP SINCE 193 AM VITAL SIGNS STABLE MAY TRANSF TO THE FLOOR WITH SITTER, STABLE
[2019-03-22] MEDS: PIPERACILLIN/TAZO 3.375 GM in NS 50 ML IV SCH ×3 (01:09→11:04)
[2019-03-22] MEDS: INSULIN REGULAR, HUMAN 100 UNITS/ML, 10 ML VIAL (humuLIN R) SUBCUT PRN ×3 (01:10→17:41)
[2019-03-22] MEDS: LevALBUTEROL HCL 1.25 MG/0.5 ML *CONC.* VIAL.NEB (XOPENEX CONC.) INH SCH ×6 (03:00→23:20)
[2019-03-22 06:09] LABS: BASOPHILS % (AUTO) 0.4 % (0.0-2.0); EOSINOPHILS # (AUTO) 0.1 K/uL (0.0-0.4); EOSINOPHILS % (AUTO) 1.5 % (0.0-4.0); HEMATOCRIT 34.4 % (36-54); HEMOGLOBIN 11.4 g/dL (14.0-18.0); LYMPHOCYTES # (AUTO) 0.8 K/uL (1.0-5.5); MEAN CORPUSCULAR HEMOGLOBIN 35 pg (27-31); MEAN CORPUSCULAR HGB CONC 33 % (32-36); MEAN CORPUSCULAR VOLUME 104 fL (79.0-98.0); MONOCYTES # (AUTO) 0.5 K/uL (0.0-1.0); MONOCYTES % (AUTO) 6.9 % (1.7-9.3); NEUTROPHILS # (AUTO) 6.3 K/uL (1.8-7.7); NEUTROPHILS % (AUTO) 81.2 % (40.0-70.0); PLATELET COUNT (AUTO) 128 K/uL (130-430); RED CELL DISTRIBUTION WIDTH 14.5 % (9.0-15.0); WHITE BLOOD COUNT (AUTO) 7.7 K/uL (4.8-10.8)
[2019-03-22 06:58] LABS: ALANINE AMINOTRANSFERASE 30 U/L (12-78); ALBUMIN 2.2 g/dL (3.4-4.8); ANION GAP 6 (5-15); ASPARTATE AMINOTRANSFERASE 20 U/L (10-37); CALCIUM 7.8 mg/dL (8.4-11.0); CHLORIDE 108 mmol/L (98-107); CREATININE 0.47 mg/dL (0.55-1.30); GLUCOSE 91 mg/dL (70-99); POTASSIUM 4.2 mmol/L (3.5-5.1); SODIUM SERUM 140 mmol/L (136-145); TOTAL BILIRUBIN 0.3 mg/dL (0.0-1.0); UREA NITROGEN, BLOOD 8 mg/dL (8-21)
--- NOTE | 2019-03-22 07:13 | NUR ---
RECEIVED NURSING REPORT FROM HIM SPECIALIST CHATA Belle
[2019-03-22] MEDS: KCL 20 mEq in D5NS 1000 mL 1,000 ML IV SCH (08:05)
[2019-03-22] MEDS: PREDNISONE 10 MG TABLET GT SCH ×2 (08:43→21:34)
[2019-03-22] MEDS: FAMOTIDINE 20 MG TABLET GT SCH (08:43)
[2019-03-22] MEDS: METOPROLOL TARTRATE 25 MG TABLET GT SCH ×2 (08:44→21:37)
[2019-03-22] MEDS: DOCUSATE SODIUM 100 MG/10 ML UDC GT SCH ×2 (08:44→21:34)
--- NOTE | 2019-03-22 09:10 | NUR ---
PATIENT IS ALERT, AWAKE, VERBALIZED RESPONSE, CONFUSION ,EPISODES OF VERBAL ABUSE AND AGGRESSIVE TO STAFFS, PULLED OUT LEFT HAND IV SITE AND PULLED OUT O2 NASAL CANNULA , GIVE EXPLAINED AND REORIENTATION NEED, H.R IS SINUS ARRHYTHMIA WITH PVCs, AT 0905 A.M, SEE PATIENT
--- NOTE | 2019-03-22 09:49 | NUR ---
AT 0935 A.M, SEE PATIENT, ORDERED FOLLOW UP CBC, CMP, ABG, CHEST X-RAY IN TOMORROW A.M Addendum: 03/22/19 at 1051 by Fredo Wheatley RN WRONG PATIENT
--- NOTE | 2019-03-22 10:19 | NUR ---
AT 1005 A.M, SEE PATIENT, ORDERED CHANGE IVF AND FOLLOW UP CBC. CMP, CHEST X-RAY IN TOMORROW A.M
[2019-03-22] MEDS: VANCOMYCIN HCL 750 MG in NS 250 ML IV SCH (11:03)
[2019-03-22] MEDS: 0.45% NACL 1,000 ML IV SCH (11:04)
--- NOTE | 2019-03-22 11:14 | NUR ---
Dietitian Recommendations *Recommend Vital AF 1.2 at 70ml/hr (goal rate), FWF 110ml Q6H via GT Provides: 2016 kcal, 126 gm protein and 1802ml free water daily. Meets: 95% of lower end of est calorie needs and 89% of upper end of est protein needs. Please see Nutritional Assessment for details. SONG, RD
--- NOTE | 2019-03-22 14:23 | NUR ---
SEE PATIENT, WAS AWARE PATIENT HAD MORE PVCs, ORDERED MONITOR 24 HOURS, IS CONDITION STABLE ,THEN O.K DOWN GRADE TO TELE STATUS IN TOMORROW MORNING
--- NOTE | 2019-03-22 15:13 | NUR ---
AT 1430 P.M, SEE PATIENT, ORDERED START CEFEPIME 1 GM IVPB EVERY 12 HOURS
[2019-03-22] MEDS: RIVAROXABAN 20 MG TABLET GT SCH (17:36)
--- NOTE | 2019-03-22 19:15 | NUR ---
GIVE COMPLETE NURSING REPORT TO EMERGENCY PLANNER EZEKIEL Belle
--- NOTE | 2019-03-22 19:40 | NUR ---
Initial PM note Received patient after report from day shift nurse. patient awake and able to follow simple commands. Periods of forgetfulness and requires frequent reminders to keep lines and O2 in place. No signs of respiratory difficulty as patient continues with nasal canula 1L/min. IVF infusing to R FA 20 g; no signs of infiltration noted. Snow catheter in place and draining urine per gravity. GT feeding infusing to PEG no obstruction or leakage noted. will continue to monitor as per unit protocol. Call light within reach and bed set to lowest settings.
[2019-03-22] MEDS: ATORVASTATIN 20 MG TABLET GT SCH (21:34)
[2019-03-22] MEDS: CEFEPIME 1 GM in D5W 50 ML IV SCH (21:39)
--- NOTE | 2019-03-22 22:30 | NUR ---
noted episodes of hypotension SBP 87 while sleeping. easy to arouse and BP corrected. will continue to monitor patient for needs of vasopressors.
[2019-03-23] VITALS (24 sets, daily range): BP systolic 75–133
[2019-03-23] MEDS: VANCOMYCIN HCL 750 MG in NS 250 ML IV SCH ×3 (01:28→22:22)
[2019-03-23] MEDS: LevALBUTEROL HCL 1.25 MG/0.5 ML *CONC.* VIAL.NEB (XOPENEX CONC.) INH SCH ×6 (03:00→23:24)
[2019-03-23 06:11] LABS: BASOPHILS % (AUTO) 0.5 % (0.0-2.0); EOSINOPHILS # (AUTO) 0.4 K/uL (0.0-0.4); EOSINOPHILS % (AUTO) 4.6 % (0.0-4.0); HEMATOCRIT 35.8 % (36-54); LYMPHOCYTES # (AUTO) 1.5 K/uL (1.0-5.5); LYMPHOCYTES % (AUTO) 18.8 % (20.5-51.5); MEAN CORPUSCULAR HEMOGLOBIN 34 pg (27-31); MEAN CORPUSCULAR HGB CONC 34 % (32-36); MEAN CORPUSCULAR VOLUME 103 fL (79.0-98.0); MONOCYTES # (AUTO) 0.8 K/uL (0.0-1.0); MONOCYTES % (AUTO) 10.2 % (1.7-9.3); NEUTROPHILS # (AUTO) 5.4 K/uL (1.8-7.7); NEUTROPHILS % (AUTO) 65.9 % (40.0-70.0); PLATELET COUNT (AUTO) 135 K/uL (130-430); RED BLOOD CELL COUNT(AUTO) 3.49 MIL/uL (4.2-6.2); RED CELL DISTRIBUTION WIDTH 14.4 % (9.0-15.0); WHITE BLOOD COUNT (AUTO) 8.2 K/uL (4.8-10.8)
[2019-03-23 06:37] LABS: ALANINE AMINOTRANSFERASE 32 U/L (12-78); ALBUMIN 2.2 g/dL (3.4-4.8); ANION GAP 4 (5-15); ASPARTATE AMINOTRANSFERASE 29 U/L (10-37); CALCIUM 8.3 mg/dL (8.4-11.0); CHLORIDE 100 mmol/L (98-107); CREATININE 0.44 mg/dL (0.55-1.30); GLUCOSE 85 mg/dL (70-99); POTASSIUM 3.8 mmol/L (3.5-5.1); SODIUM SERUM 132 mmol/L (136-145); TOTAL BILIRUBIN 0.5 mg/dL (0.0-1.0); UREA NITROGEN, BLOOD 14 mg/dL (8-21)
--- NOTE | 2019-03-23 07:27 | NUR ---
RECEIVED NURSING REPORT FROM BUSINESS ACCOUNT EXECUTIVE EZEKIEL Belle
[2019-03-23] MEDS: CEFEPIME 1 GM in D5W 50 ML IV SCH ×2 (08:08→20:12)
[2019-03-23] MEDS: DOCUSATE SODIUM 100 MG/10 ML UDC GT SCH ×2 (08:08→20:12)
[2019-03-23] MEDS: PREDNISONE 10 MG TABLET GT SCH ×2 (08:09→20:13)
[2019-03-23] MEDS: FAMOTIDINE 20 MG TABLET GT SCH (08:09)
[2019-03-23] MEDS: METOPROLOL TARTRATE 25 MG TABLET GT SCH ×2 (08:10→20:13)
--- NOTE | 2019-03-23 09:18 | NUR ---
AT 0900 A.M, SEE PATIENT, VERBALIZED IS O.K DOWN GRADE TO TELE STATUS, WAS NOTIFY CHARGE NURSE ES AWARE, ORDERED FOLLOW UP 2D ECHO CARDIOGRAM TODAY AND CHEST X-RAY, CBC, BNP, BMP IN TOMORROW A.M
[2019-03-23] MEDS: 0.45% NACL 1,000 ML IV SCH (09:45)
--- NOTE | 2019-03-23 10:30 | NUR ---
AT 1030 A.M, FINISHED 2 D ECHO CARDIOGRAM AT BEDSIDE, E.F 58 %
[2019-03-23] MEDS: ACETAMINOPHEN 650 MG/20.3 ML UDC GT PRN (11:23)
--- NOTE | 2019-03-23 12:43 | NUR ---
SEE PATIENT, R.N REPORTED TO HIM REGARDING OF LAB: SODIUM LEVEL 132, DR. VARGAS VERBALIZED: IS Sharmila
[2019-03-23] MEDS ORDERED: NS 250 ML IV ONE (13:15)
--- NOTE | 2019-03-23 13:21 | NUR ---
AT 1310 P.M PATIENT IS SHOW HYPOTENSION, B.P 78/36 MMHG-83/46 MMHG, REPORTED TO DR. WHEELER, ORDERED GIVE N.S IV BOLUS 250 ML X ONCE,
[2019-03-23] MEDS: NOREPINEPHRINE BITARTRATE 4 MG in D5W 246 ML IV PRN (13:40)
--- NOTE | 2019-03-23 13:40 | NUR ---
AFTER IV BOLUS, PATIENT,S B.P IS 86/41 MMHG, H.R 96 IS SINUS RHYTHM WITH PVCs, ORDERED ON LEVOPHED DRIP START 4 MCG/MIN, KEEP SBP> 90 MMHG, AND TRANSFER TO ICU STATUS
--- NOTE | 2019-03-23 14:00 | NUR ---
PRINTED CIRCUIT BOARDS STRIPPER ETCHER conducted a Discharge Plan/ICU Assessment Patient has severe dementia and is unable to make his own decisions. Phoned Werner at [facility], . Patient has been there several years and is on a bed hold. They plan to accept patient back upon discharge. Phoned brother, Santana Corral, . He agrees with patient returning to [facility] upon discharge. He prefers patient's niece, Hayley Dickerson, , be the primary contact/decision maker. He had no questions but would like to be notified when patient is transferred back to the SNF. Hospitality Associate/Case Management/Tobacco Packer will remain available.
[2019-03-23] MEDS: RIVAROXABAN 20 MG TABLET GT SCH (17:07)
[2019-03-23] MEDS: INSULIN REGULAR, HUMAN 100 UNITS/ML, 10 ML VIAL (humuLIN R) SUBCUT PRN (17:20)
--- NOTE | 2019-03-23 19:24 | NUR ---
GIVE COMPLETE NURSING REPORT TO PROCUREMENT CONSULTANT HENRY Belle
--- NOTE | 2019-03-23 19:25 | NUR ---
PM SHIFT ASSESSMENT Pt is awake but confused. O2 via NC @ 1L, RR even and unlabored. SR/ST noted on monitor. Snow catheter in place and draining to gravity. IV intact with IVF and Levophed infusing. Skin warm and dry. Safety precautions in place, call light within reach. Will continue to monitor.
[2019-03-23] MEDS: ATORVASTATIN 20 MG TABLET GT SCH (20:13)
[2019-03-24] VITALS (23 sets, daily range): BP systolic 87–137
[2019-03-24] MEDS: ACETAMINOPHEN 650 MG/20.3 ML UDC GT PRN (00:35)
--- NOTE | 2019-03-24 01:00 | NUR ---
ENDORSEMENT Pt care endorsed to ROHINI Dodson using nursing SBAR at bedside.
--- NOTE | 2019-03-24 01:00 | NUR ---
OPENING NOTE SBAR REPORT RECEIVED FROM HENRY NOVA. CARE ASSUMED. PT LAYING IN BED. PT ANO X1. PT ON 1 L NC. PT SINUS TACHYCARDIA ON MONITOR. PT HAS 20 G IV TO RIGHT FOREARM RUNNING LEVOPHED @ 4MCG/KG/MIN AND 1/2 NS @ 30 ML/HR. NO EDEMA NOTED. ABDOMEN SOFT NON DISTENDED. G TUBE IN PLACE RUNNING VITAL AF @ 70 ML/HR. NO RESIDUAL OBTAINED. SIMPSON CATHETER IN PLACE FLOWING TO GRAVITY. URINE YELLOW AND CLEAR. SKIN INTACT. BED LOCKED IN LOWEST POSITION. SAFETY PRECAUTIONS IN PLACE. CALL LIGHT WITHIN REACH. WILL CONTINUE TO MONITOR.
[2019-03-24] MEDS: LevALBUTEROL HCL 1.25 MG/0.5 ML *CONC.* VIAL.NEB (XOPENEX CONC.) INH SCH ×6 (03:00→23:10)
[2019-03-24 05:48] LABS: BASOPHILS % (AUTO) 0.3 % (0.0-2.0); EOSINOPHILS % (AUTO) 0.4 % (0.0-4.0); HEMATOCRIT 34.4 % (36-54); HEMOGLOBIN 11.4 g/dL (14.0-18.0); LYMPHOCYTES # (AUTO) 0.8 K/uL (1.0-5.5); LYMPHOCYTES % (AUTO) 7.9 % (20.5-51.5); MEAN CORPUSCULAR HEMOGLOBIN 34 pg (27-31); MEAN CORPUSCULAR HGB CONC 33 % (32-36); MEAN CORPUSCULAR VOLUME 103 fL (79.0-98.0); MONOCYTES # (AUTO) 1.1 K/uL (0.0-1.0); MONOCYTES % (AUTO) 11.8 % (1.7-9.3); NEUTROPHILS # (AUTO) 7.6 K/uL (1.8-7.7); NEUTROPHILS % (AUTO) 79.6 % (40.0-70.0); PLATELET COUNT (AUTO) 129 K/uL (130-430); RED BLOOD CELL COUNT(AUTO) 3.35 MIL/uL (4.2-6.2); RED CELL DISTRIBUTION WIDTH 14.8 % (9.0-15.0); WHITE BLOOD COUNT (AUTO) 9.6 K/uL (4.8-10.8)
[2019-03-24 06:12] LABS: ALANINE AMINOTRANSFERASE 25 U/L (12-78); ANION GAP 6 (5-15); ASPARTATE AMINOTRANSFERASE 19 U/L (10-37); CALCIUM 7.9 mg/dL (8.4-11.0); CHLORIDE 102 mmol/L (98-107); CREATININE 0.54 mg/dL (0.55-1.30); GLUCOSE 161 mg/dL (70-99); POTASSIUM 3.5 mmol/L (3.5-5.1); SODIUM SERUM 134 mmol/L (136-145); TOTAL BILIRUBIN 0.4 mg/dL (0.0-1.0); UREA NITROGEN, BLOOD 16 mg/dL (8-21); VANCOMYCIN,TROUGH 13.1 ug/mL (5.0-10.0)
[2019-03-24] MEDS: NOREPINEPHRINE BITARTRATE 4 MG in D5W 246 ML IV PRN ×2 (06:55→18:28)
--- NOTE | 2019-03-24 07:28 | NUR ---
CLOSING NOTE PT LAYING IN BED SLEEPING. NO SIGNS OR SYMPTOMS OF DISTRESS NOTED. SBAR REPORT GIVEN TO KATERINA NOVA. CARE ENDORSED.
--- NOTE | 2019-03-24 07:30 | NUR ---
OPENING NOTE Report received from ROHINI Christianson. Patient resting in the bed with eyes closed. No acute distress. On O2 2L/min via NC. HOB elevated. On GT feeding of Vital AF at 70ml/hr. Skin warm and dry to touch. Iv intact to RFA, no redness, no swelling, no drainage. On Levophed at 6mcg/min and 1/2NS at 30ml/hr, infusing well. F/C intact, drain gravity. On contact isolation. Safety measure maintained. Call light within reached. Will continue to monitor.
[2019-03-24] MEDS: CEFEPIME 1 GM in D5W 50 ML IV SCH ×2 (08:09→20:56)
[2019-03-24] MEDS: FAMOTIDINE 20 MG TABLET GT SCH (08:09)
[2019-03-24] MEDS: DOCUSATE SODIUM 100 MG/10 ML UDC GT SCH ×2 (08:09→20:58)
[2019-03-24] MEDS: PREDNISONE 10 MG TABLET GT SCH ×2 (08:10→20:58)
[2019-03-24] MEDS: METOPROLOL TARTRATE 25 MG TABLET GT SCH ×2 (08:10→21:00)
[2019-03-24] MEDS: 0.45% NACL 1,000 ML IV SCH (08:11)
--- NOTE | 2019-03-24 08:28 | NUR ---
SEEN AND EXAMINED BY FRANKLYN JHA WITH ORDER RECEIVED.
[2019-03-24] MEDS ORDERED: NS 500 ML IV ONE (08:30)
[2019-03-24] MEDS: NACL 0.9% 1,000 ML IV SCH (09:29)
--- NOTE | 2019-03-24 10:15 | NUR ---
SEEN AND EXAMINED BY HARRY PUENTE.
[2019-03-24] MEDS: VANCOMYCIN HCL 750 MG in NS 250 ML IV SCH ×2 (11:00→17:32)
--- NOTE | 2019-03-24 11:15 | NUR ---
GT FEEDING Per dietitian may change to Jevity 1.5 after current Vital bottle empty.
--- NOTE | 2019-03-24 11:20 | NUR ---
SEEN AND EXAMINED BY GAGANDEEP LEBRON.
--- NOTE | 2019-03-24 11:20 | NUR ---
ROUND Patient resting in the bed with eyes closed. No acute distress. Continue on O2 via NC. IV intact, NS at 100ml/hr and Levophed drip at 6mcg/min, infusing well. F/C intact, drain gravity. Continue on contact isolation. Safety measure maintained. Call light within reached. Continue to monitor.
--- NOTE | 2019-03-24 11:46 | NUR ---
WQ=[id number] No insulin coverage needed per sliding scale.
--- NOTE | 2019-03-24 11:50 | NUR ---
Nutrition F/U RD reviewed pt's current EMR record including diet Hx, physician notes, nursing notes, pertinent labs/meds/procedures, care trends, and care activity. Admission Dx: Pneumonia, septic shock Pt also found w/ aspiration pneumonia, septic shock, acute respiratory failure, DM, Hx of DVT of LE, mild anemia per physician notes PMH: dementia, HTN, paroxysmal atr fibr, BPH, GT placement per physician notes Current Diet Order/Nutrition Support: Vital AF 1.2 at 70 ml/hr, Free Water Flush: 110 ml Q6H via GT x2 days Subjective Info: Pt seen sleeping in bed, +nasal cannula, w/ TF infusing as per physician order. Per RN, pt has been tolerating TF well, no residuals. RD recommended to modify TF formula d/t lack of supply of Vital AF 1.2; replacement formula: Jevity 1.5. RN acknowledged. 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 No pending plans/procedures per RN report. Current % PO N/A Estimated Energy Expenditure (kcals/day) 4463-8157 kcal/day (30-35 kcal/kg CBW for sepsis) Estimated Protein Required (g/day) 106-142 gm/day (1.5-2 gm/kg CBW for sepsis) Estimated Fluid Required (l/day) 1.8-2.1 L/day (25-30 ml/kg CBW for maintenance) Problem/Etiology/Signs/Symptoms Increased nutrient needs r/t metabolic demands AEB estimated nutrient needs for sepsis. *ongoing Expected Outcomes/Goals Monitor EN tolerance and intake w/ goal of pt meeting at least 75% of estimated nutritional needs, labs trending WNL, normal GI function, skin integrity/wt maintenance. Dietitian Recommendations * Recommend Jevity 1.5 at 65 ml/hr, Free Water Flush: 175 ml Q6h via GT Provides: 2340 kcal/day, 100 gm protein/day, and 1886 ml free water/day Meets: 94% of upper end of estimated caloric needs and 94% of lower end of estimated protein needs Follow Up High Risk: F/U in 2-3 days
--- NOTE | 2019-03-24 13:29 | NUR ---
Dietitian Recommendations * Recommend Jevity 1.5 at 65 ml/hr, Free Water Flush: 175 ml Q6h via GT Provides: 2340 kcal/day, 100 gm protein/day, and 1886 ml free water/day Meets: 94% of upper end of estimated caloric needs and 94% of lower end of estimated protein needs LP, RD Please refer to Nutrition F/U for details.
--- NOTE | 2019-03-24 15:31 | NUR ---
BREATHING TREATMENT Patient receiving breathing treatment at this time, admitted by RT. Patient no acute distress. IV intact, NS at 100ml/hr and Levophed drip at 6mcg/min, infusing well. Contact isolation maintained. Safety measure maintained. Call light within reached. Continue to monitor.
[2019-03-24] MEDS: RIVAROXABAN 20 MG TABLET GT SCH (17:31)
--- NOTE | 2019-03-24 18:29 | NUR ---
LEVOPHED DRIP TITRATED TO 4 MCG/MIN. B/P=107/65, P=91, O2 Sat=96%. Patient BP stable, Levophed drip titrated from 6mcg/min to 4mcg/min. Will continue to monitor.
--- NOTE | 2019-03-24 19:00 | NUR ---
RECEIVED REPORT FROM KATERINA PATIENT IS AWKE HE RESPONDED WHEN ASKED HOW HE WAS DOING PATIENT IS ON 1 LITER NASAL CANNULA SATURATING 96%,REPIRATION IS AT 36/MIN,BREATHE SOUND WITH COURSE RHONCHI THROUGHOU AND HAS CONGESTED COUGH PATIENT IS SWALLOWING HIS PHLEGM PATIENT PERIPHERAL IV IS ON RIGHT FOREARM SITE IS PATENT NO SIGN OF REDNESS OR INFILTRATION.PATIENT ON LEVOPHED AT 4 MCG/MIN,PATIENT ON CONTINOUS FEEDING WITH VITAL INFUSING THRU HIS PEG.ABDOMEN IS SOFT NOT DISTENDED HAS ACTIVE BOWEL SOUND.PATIENT ON CONTACT ISOLATION FOR MRSA OF NARES.
--- NOTE | 2019-03-24 19:25 | NUR ---
CLOSING NOTE Patient resting in the bed with eyes closed. No acute distress. On O2 1L/min via NC. HOB elevated. On GT feeding of Vital AF at 70ml/hr, tolerated well. Skin warm and dry to touch. IV intact to RFA, no redness, no swelling, no drainage. On Levophed at 4mcg/min and NS at 100ml/hr, infusing well. F/C intact, drain gravity. On contact isolation. Safety measure maintained. Call light within reached. Report and SBAR given to ROHINI Lizarraga at bedside.
[2019-03-24] MEDS: ATORVASTATIN 20 MG TABLET GT SCH (20:58)
--- NOTE | 2019-03-24 22:00 | NUR ---
LEVOPHED TITRATED DOWN TO 3 MCG/MIN
--- NOTE | 2019-03-24 23:30 | NUR ---
TOLERATING LEVOPHED AT 3 MCG/MIN BLOOD PRESSURE IS STAYING STABLE.PATIENT ACCUCHECK IS 94 NO COVERAGE NEEDED.
[2019-03-25] VITALS (24 sets, daily range): BP systolic 93–143
[2019-03-25] MEDS: NACL 0.9% 1,000 ML IV SCH ×3 (00:34→12:43)
[2019-03-25] MEDS ORDERED: LevALBUTEROL HCL 1.25 MG/0.5 ML *CONC.* VIAL.NEB (XOPENEX CONC.) INH ONE (01:03)
[2019-03-25] MEDS: VANCOMYCIN HCL 750 MG in NS 250 ML IV SCH ×3 (02:12→17:18)
[2019-03-25] MEDS: LevALBUTEROL HCL 1.25 MG/0.5 ML *CONC.* VIAL.NEB (XOPENEX CONC.) INH SCH ×6 (02:50→23:36)
[2019-03-25] MEDS: ACETAMINOPHEN 650 MG/20.3 ML UDC GT PRN (03:48)
--- NOTE | 2019-03-25 04:00 | NUR ---
TITRATED LEVOPHED FARTHER PATIENT BLOOD PRESSURE STAYING STABLE SYSTOLIC ABOVE 100
--- NOTE | 2019-03-25 05:00 | NUR ---
PATIENT VERY UNCOOPERATIVE EVEN TO CLEAN HIM IS A STRUGGLE WITH HIM
[2019-03-25 06:01] LABS: BASOPHILS % (AUTO) 0.3 % (0.0-2.0); EOSINOPHILS # (AUTO) 0.2 K/uL (0.0-0.4); EOSINOPHILS % (AUTO) 3.4 % (0.0-4.0); HEMATOCRIT 32.6 % (36-54); LYMPHOCYTES # (AUTO) 0.8 K/uL (1.0-5.5); LYMPHOCYTES % (AUTO) 15.4 % (20.5-51.5); MEAN CORPUSCULAR HEMOGLOBIN 34 pg (27-31); MEAN CORPUSCULAR HGB CONC 34 % (32-36); MEAN CORPUSCULAR VOLUME 102 fL (79.0-98.0); MONOCYTES # (AUTO) 0.7 K/uL (0.0-1.0); MONOCYTES % (AUTO) 13.6 % (1.7-9.3); NEUTROPHILS # (AUTO) 3.6 K/uL (1.8-7.7); NEUTROPHILS % (AUTO) 67.3 % (40.0-70.0); PLATELET COUNT (AUTO) 103 K/uL (130-430); RED BLOOD CELL COUNT(AUTO) 3.19 MIL/uL (4.2-6.2); RED CELL DISTRIBUTION WIDTH 14.6 % (9.0-15.0); WHITE BLOOD COUNT (AUTO) 5.4 K/uL (4.8-10.8)
[2019-03-25 06:25] LABS: ALANINE AMINOTRANSFERASE 28 U/L (12-78); ANION GAP 5 (5-15); ASPARTATE AMINOTRANSFERASE 21 U/L (10-37); CALCIUM 7.9 mg/dL (8.4-11.0); CHLORIDE 103 mmol/L (98-107); CREATININE 0.42 mg/dL (0.55-1.30); GLUCOSE 106 mg/dL (70-99); POTASSIUM 3.5 mmol/L (3.5-5.1); SODIUM SERUM 134 mmol/L (136-145); TOTAL BILIRUBIN 0.3 mg/dL (0.0-1.0); UREA NITROGEN, BLOOD 14 mg/dL (8-21)
--- NOTE | 2019-03-25 07:05 | NUR ---
Levophed DC'd per night RN. Noted HR 107, RR36, O2 Sat 72%, 125/78 BP MAP 94. Will continue to monitor.
--- NOTE | 2019-03-25 07:15 | NUR ---
Received shift report from night RN using SBAR.
[2019-03-25] MEDS: CEFEPIME 1 GM in D5W 50 ML IV SCH ×2 (08:18→20:47)
[2019-03-25] MEDS: DOCUSATE SODIUM 100 MG/10 ML UDC GT SCH ×2 (08:19→20:46)
[2019-03-25] MEDS: FAMOTIDINE 20 MG TABLET GT SCH (08:19)
[2019-03-25] MEDS: PREDNISONE 10 MG TABLET GT SCH ×2 (08:20→20:46)
[2019-03-25] MEDS: METOPROLOL TARTRATE 25 MG TABLET GT SCH ×2 (08:20→21:00)
--- NOTE | 2019-03-25 08:30 | NUR ---
AM ASSESSMENT Pt resting with no signs of pain or distress. Pt leaning on left side. Able to open eyes on verbal command and is A/O x 1. No skin intact with rhonchi in upper bilateral lobes and diminished in lower lobes. None productive cough noted. Heals floating. Temp 98.9. Bed locked and in lowest position with call light in reach.
--- NOTE | 2019-03-25 10:00 | NUR ---
Provided partial bedbath (face wash and upper body wash). Cleaned perineal area and perianal. Pt verbally abusive but due to medical condition.
--- NOTE | 2019-03-25 12:30 | NUR ---
PT BM Provided perineal and perianal care. Changed gown, and supportive linens. Pt is verbally alert and has no complaints during alicja-care. Bed locked and in lowest position.
--- NOTE | 2019-03-25 13:00 | NUR ---
Rounding Pt resting with no signs of pain or distress. Pt verbal and indicated he was cold. Will apply extra blanket. Temperature of 98.6F noted. Bed locked and in lowest position.
--- NOTE | 2019-03-25 15:30 | NUR ---
Wound Evaluation: Wound Consult ordered for Low Dante Score. Patient evaluated for a low Dante score of 12. Patient was awake, alert, oriented x 1-2 and received in a Bacova Bed with an Atmos-Air 9000 mattress. Patient needs to be turned in bed. Recommend reposition patient every 2 hours with pillow support. Elevate, off-load and float bilateral heels with pillows. Offload pressure areas with pillows for pressure re-distribution. Perform skin care and monitor skin integrity Q shift. Use moisture barrier cream on moisture susceptible areas QID and PRN for soiling. Place patient on a low air-loss mattress.
--- NOTE | 2019-03-25 16:08 | NUR ---
Discharge Planning: DCP faxed pt referral to [facility] (f [phone] p [phone]) DCP to follow up
--- NOTE | 2019-03-25 17:00 | NUR ---
Mila from [facility] called for PT status update.
[2019-03-25] MEDS: RIVAROXABAN 20 MG TABLET GT SCH (17:18)
[2019-03-25] MEDS: INSULIN REGULAR, HUMAN 100 UNITS/ML, 10 ML VIAL (humuLIN R) SUBCUT PRN (17:27)
--- NOTE | 2019-03-25 18:00 | NUR ---
Rounding Pt resting with no signs of pain or distress. Pt responding to verbal response. A/O x 2. Will continue to monitor. Bed locked and in lowest position with call light in place.
--- NOTE | 2019-03-25 19:15 | NUR ---
change of shift.pt.presents isolation status;mrsa;nares.pt.presents g-tube;jevity:1.2 administering.pt.ordered glucerna; product is not available. pt.presents o2 therapy via nasal cannulae.administration rate:2l/min.pt.presents iv access intact;patent iv fluids infusing.pt.presents oh cath;pt.presents bph hx.oh cath to remain in place.call light/telephone w/in reach of the pt.
--- NOTE | 2019-03-25 19:20 | NUR ---
ENDORSEMENT / CLOSING NOTE PROVIDED SHIFT REPORT TO NIGHT RN USING SBAR. PT RESTING COMFORTABLY. EXPRESSED NO PAIN OR DISCOMFORT. NC @ 1L. NS @ 100CC/HR. HR 107, RR 36, 72% O2 SAT, 128/78 MAP OF 94. NIGHT RN BEDSIDE.
--- NOTE | 2019-03-25 20:00 | NUR ---
pt.assessed.v/s assessed;values w/in normal limits.g-tube intact;patent;g-tube feed infusing.iv access intact;patent;g-tube feed infusing. oh cath intact;patent;urine content present.per flacc pain mgx;pt/absent facial grimaces/body posturing.general status stable.respiratory status;labored;02-sat%=96%.call light/telephone placed w/in reach of the pt. Addendum: 03/26/19 at 0240 by Colby Uriostegui RN telephONED brandin;LUCIA OSBORNE.I SPOKE W/PALLAVI.TO CONFIRM PT.TRANSFER.PADMINI.PALLAVI STATED THE PT. WILL BE POSSIBLE TRANSFER:03/26/19;FRIDAY.NSG TO F/U.
[2019-03-25] MEDS: ATORVASTATIN 20 MG TABLET GT SCH (20:46)
--- NOTE | 2019-03-25 21:00 | NUR ---
2100pmedications administered via the g-tube.medications administered absent resistance.i have administered maxipime ;abx;ivpb.
--- NOTE | 2019-03-25 22:00 | NUR ---
pt.assessed.v/s assessed;values w/in normal limits.g-tube intact;patent;g-tube feed infusing.iv acces intact;';patent;iv fluids infusing. oh cath intact;patent;urine content present.pt.assessed for cleanliness.pt repositioned.per flacc pain mgx;pt.absent facial grimaces/body posturing.general status stable.respiratory status stable;labored;02-sat%=96%.call light/telephone placed w/in reach of the pt.
[2019-03-26] VITALS (17 sets, daily range): BP systolic 86–126
--- NOTE | 2019-03-26 | NUR ---
pt.assessed.v/s assessed;values w/in normal limits.pt.assessed for cleanliness.pt.repositioned.g-tube intact;patent;g-tube feed infusing.i have administered;o3g-pecps;175ml.administered absent resistance.oh cath intact;patent;urine content present.iv access intact;patent;iv fluids infusing.general status stable.respiratory status;labored;02-sat%=-96%.call light.telephone placed w/in reach of the pt.i have assessed the blood glucose;value:126mg/dl.i have apprised the pt.of the value. Addendum: 03/26/19 at 0208 by Colby Uriostegui RN per flacc;pain mgx;pt/absent facial grimaces/body posturing.
[2019-03-26] MEDS: NACL 0.9% 1,000 ML IV SCH ×2 (00:11→10:09)
--- NOTE | 2019-03-26 02:00 | NUR ---
pt.assessed.v/s assessed;values w/in normal limits.g-tube intact;patent;g-tube feed infusing.iv access intact;patent iv fluids infusing oh cath intact;patetn;urine content present .general status stable.respiratory status;labored;o2-sat%=96%.pt.assessed for cleanliness. pt.repositioned.per flacc pain mgx;pt.absent facial grimaces /body posturing.call light/telephone placed w/in reach of the pt.
[2019-03-26] MEDS: VANCOMYCIN HCL 750 MG in NS 250 ML IV SCH ×2 (02:50→10:09)
[2019-03-26] MEDS: LevALBUTEROL HCL 1.25 MG/0.5 ML *CONC.* VIAL.NEB (XOPENEX CONC.) INH SCH ×4 (03:55→15:24)
--- NOTE | 2019-03-26 04:00 | NUR ---
pt.assessed/v/s assessed.pt.assessed for cleanliness.pt.repositioned.g-tube intact;patent.g-tube feed infusing.iv access intact;patent iv fluids infusing.oh cath intact;patent;urine content present.general status stable.respiratory status; labored;02-sat%=96%.call light/telephone placed w/in reach of the pt.
[2019-03-26] MEDS ORDERED: LevALBUTEROL HCL 1.25 MG/0.5 ML *CONC.* VIAL.NEB (XOPENEX CONC.) INH ONE (04:07)
[2019-03-26 05:48] LABS: BASOPHILS % (AUTO) 0.4 % (0.0-2.0); EOSINOPHILS % (AUTO) 0.6 % (0.0-4.0); HEMATOCRIT 32.1 % (36-54); HEMOGLOBIN 10.7 g/dL (14.0-18.0); LYMPHOCYTES # (AUTO) 0.9 K/uL (1.0-5.5); LYMPHOCYTES % (AUTO) 18.9 % (20.5-51.5); MEAN CORPUSCULAR HEMOGLOBIN 34 pg (27-31); MEAN CORPUSCULAR HGB CONC 33 % (32-36); MEAN CORPUSCULAR VOLUME 103 fL (79.0-98.0); MONOCYTES # (AUTO) 0.4 K/uL (0.0-1.0); MONOCYTES % (AUTO) 9.4 % (1.7-9.3); NEUTROPHILS # (AUTO) 3.4 K/uL (1.8-7.7); NEUTROPHILS % (AUTO) 70.7 % (40.0-70.0); PLATELET COUNT (AUTO) 110 K/uL (130-430); RED BLOOD CELL COUNT(AUTO) 3.11 MIL/uL (4.2-6.2); RED CELL DISTRIBUTION WIDTH 14.4 % (9.0-15.0); WHITE BLOOD COUNT (AUTO) 4.7 K/uL (4.8-10.8)
--- NOTE | 2019-03-26 06:00 | NUR ---
pt.assessed.v/s assessed;values w/in normal limits.per flacc;pain mgx pt.absent facial grimaces/body posturing. g-tube intact;patent;i have cleaned the g-tube insertion site.i have changed the g-tube dsg.iv access intact; patent; iv fluids infusing. oh cath intact;patent;urine content present.pt.assessed for cleanliness.pt.cleaned.pt repositioned.general status stable. respiratory status labored.call light/telephone placed w/in reach of the pt.
--- NOTE | 2019-03-26 07:15 | NUR ---
Shift report received from night RN using SBAR.
[2019-03-26 07:34] LABS: ANION GAP 10 (5-15); CALCIUM 8.4 mg/dL (8.4-11.0); CHLORIDE 105 mmol/L (98-107); CREATININE 0.39 mg/dL (0.55-1.30); GLUCOSE 109 mg/dL (70-99); SODIUM SERUM 140 mmol/L (136-145); UREA NITROGEN, BLOOD 11 mg/dL (8-21)
--- NOTE | 2019-03-26 08:15 | NUR ---
AM ASSESSMENT PT AWAKE AND ABLE TO COMMUNICATE. NO PAIN EXPRESSED. HR 97, RR 29, O2 92%, BP 105/66. BED LOCKED AND IN LOWEST POSITION WITH CALL LIGHT IN PLACE.
[2019-03-26] MEDS: PREDNISONE 10 MG TABLET GT SCH (08:54)
[2019-03-26] MEDS: DOCUSATE SODIUM 100 MG/10 ML UDC GT SCH (08:54)
[2019-03-26] MEDS: CEFEPIME 1 GM in D5W 50 ML IV SCH (08:54)
[2019-03-26] MEDS: FAMOTIDINE 20 MG TABLET GT SCH (08:56)
[2019-03-26] MEDS: METOPROLOL TARTRATE 25 MG TABLET GT SCH (08:56)
--- NOTE | 2019-03-26 09:30 | NUR ---
SPOKE WITH PALLAVI MOULTON PERRY. PT ACCEPTED WITH BED AVAILABLE. WILL CALL BACK FOR FURTHER DETAILS.
--- NOTE | 2019-03-26 11:07 | NUR ---
DC Planning: per [facility]: the pt is accepted and will have bed available today. Abbie MORRIS made aware.
--- NOTE | 2019-03-26 11:20 | NUR ---
PROVIDED PERIANAL AND PERINEAL CARE DUE TO BM. CHANGED GOWN AND SUPPORTIVE BEDDING. PT TOLERATED WELL.
--- NOTE | 2019-03-26 12:15 | NUR ---
TO DR VARGAS CALLED STATING PT IS NOW [facility] STATUS ALONG WITH ORDERS TO TRANSFER TO [facility].
--- NOTE | 2019-03-26 13:16 | NUR ---
DC PLANNING Called & left msg w niece Hayley Tuan, ph [phone], earlier @1130 to discuss [facility]. Called & spoke w Jessica @ [facility], ph [phone], states she left msg w niece & brother to get consent for transfer. States will give bed once family is able to be contacted. Have not received call back yet from Hayley called & left another msg w Niece & called & left msg w brother Santana Corral, ph [phone].
--- NOTE | 2019-03-26 13:30 | NUR ---
PT RESTING NOTED LOW BP OF 88/33. WILL READJUST PLACEMENT OF CUFF AND MOVE PT.
--- NOTE | 2019-03-26 13:45 | NUR ---
PALLAVI CALLED FROM [facility] REGARDING OBTAINING CONSENT FROM FAMILY MEMBER. PALLAVI STATED SHE COULD NOT GET IN TOUCH WITH ANY FAMILY MEMBER AND SHE WILL CONTINUE TO.
--- NOTE | 2019-03-26 14:25 | NUR ---
Pt's brother, Santana Corral, returned call to ICU and verified approval for transfer witnessed by second RN.
--- NOTE | 2019-03-26 14:59 | NUR ---
DC PLANNING Received call from Cayla in ICU spoke w brother Santana Corral & agreeable w transfer to [facility] today. 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 Addendum: 03/26/19 at 1536 by Abbie Colunga RN Called & set up transportation w [facility], ph [phone], for 7pm quill picking machine operator. [facility] [place] [facility], informed pt's nurse & charge nurse.
--- NOTE | 2019-03-26 15:00 | NUR ---
MD ROUNDS DR [facility] BEDSIDE, ORDERS RECEIVED.
--- NOTE | 2019-03-26 15:05 | NUR ---
Pt alert and awake. Provided perineal care. Pt tolerated well.
--- NOTE | 2019-03-26 15:10 | NUR ---
Nutrition F/U RD reviewed pt's current EMR record including diet Hx, physician notes, nursing notes, pertinent labs/meds/procedures, care trends, and care activity. Admission Dx: Pneumonia, septic shock Pt also found w/ aspiration pneumonia, septic shock, acute respiratory failure, DM, Hx of DVT of LE, mild anemia per physician notes. MD notes septic shock resolved, +MRSA, pt remains on contact isolation. Current Diet Order/Nutrition Support: Jevity 1.5 at 65 ml/hr, Free Water Flush: 175 ml Q6h via GT Provides: 2340 kcal/day, 100 gm protein/day, and 1886 ml free water/day Meets: 94% of upper end of estimated caloric needs and 94% of lower end of estimated protein needs Subjective Info: Pt seen resting in bed, TF running bedside per physician order with 4ml enfused. RN notes 5ml residuals today with 1 BM, and 10ml residuals yesterday. Seen by Application Architect Manager yesterday for low nishant score of 12, no pressure injuries noted. Pt appears to be tolerating current TF regimen, and is meeting 94% of upper caloric needs and 94% of lower end of estimated protein needs. Estimated Energy Expenditure (kcals/day) 3336-5971 kcal/day (30-35 kcal/kg CBW for sepsis) Estimated Protein Required (g/day) 106-142 gm/day (1.5-2 gm/kg CBW for sepsis) Estimated Fluid Required (l/day) 1.8-2.1 L/day (25-30 ml/kg CBW for maintenance) Problem/Etiology/Signs/Symptoms Increased nutrient needs r/t metabolic demands AEB estimated nutrient needs for sepsis. *ongoing Expected Outcomes/Goals Monitor EN tolerance and intake w/ goal of pt meeting at least 75% of estimated nutritional needs, labs trending WNL, normal GI function, skin integrity/wt maintenance. Dietitian Recommendations * Recommend Jevity 1.5 at 65 ml/hr, Free Water Flush: 175 ml Q6h via GT Follow Up High Risk: F/U in 2-3 days
--- NOTE | 2019-03-26 15:13 | NUR ---
Dietitian Recommendations * Recommend continue Jevity 1.5 at 65 ml/hr, Free Water Flush: 175 ml Q6h via GT Please see Nutrition Follow Up for further details. LT, RD
[2019-03-26] MEDS ORDERED: NACL 0.9% 1,000 ML IV SCH (15:15)
[2019-03-26] MEDS: RIVAROXABAN 20 MG TABLET GT SCH (16:12)
--- NOTE | 2019-03-26 17:15 | NUR ---
Called [facility] and gave report to nurse Schneider using SBAR. Confirmed p/u time per [facility]
--- NOTE | 2019-03-26 17:40 | NUR ---
Administered final medication and prepared Pt for transfer (Changed gown and sheets). Informed Pt of transfer with no reaction.
--- NOTE | 2019-03-26 19:25 | NUR ---
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 Report and medical record package given.
== END 2019-03-26 19:35 | DRG 871 ==
LOC: SED 00:48 → SIC 08:21
PROVIDERS: ADMIT Family Medicine; ATTEND Family Medicine
DX: A41.1 Sepsis due to other specified staphylococcus (principal); J69.0 Pneumonitis due to inhalation of food and vomit; R65.21 Severe sepsis with septic shock; J96.21 Acute and chronic respiratory failure with hypoxia; G93.40 Encephalopathy, unspecified; I48.92 Unspecified atrial flutter; E46 Unspecified protein-calorie malnutrition; N40.0 Benign prostatic hyperplasia without lower urinary tract symptoms; Y95 Nosocomial condition; E78.5 Hyperlipidemia, unspecified; E11.65 Type 2 diabetes mellitus with hyperglycemia; D64.9 Anemia, unspecified; J44.9 Chronic obstructive pulmonary disease, unspecified; I48.0 Paroxysmal atrial fibrillation; F03.90 Unspecified dementia, unspecified severity, without behavioral disturbance, psychotic disturbance, mood disturbance, and anxiety; I10 Essential (primary) hypertension; Z86.718 Personal history of other venous thrombosis and embolism; Z74.01 Bed confinement status; Z79.01 Long term (current) use of anticoagulants; Z93.1 Gastrostomy status; Z86.73 Personal history of transient ischemic attack (TIA), and cerebral infarction without residual deficits; Z87.891 Personal history of nicotine dependence; Z79.52 Long term (current) use of systemic steroids; Z68.22 Body mass index [BMI] 22.0-22.9, adult; Z88.8 Allergy status to other drugs, medicaments and biological substances; Z79.899 Other long term (current) drug therapy; Z22.322 Carrier or suspected carrier of Methicillin resistant Staphylococcus aureus
CPT/HCPCS: 36415; 71045; 71250-TC; 80048; 80053; 80202-TC; 81000-TC; 82962; 83605; 83735-TC; 83880; 84484; 85025; 85610-TC; 85730-TC; 87040-TC; 87070-TC; 87081; 87086; 87205-TC; 93005; 93306; 94640; 96361; 96365; 96375; 99291; J0692; J1815; J1956; J2543; J3370; J3490; J7030; J7040; J7050; J7060; J7512; J7612

== ENCOUNTER 2019-05-11 19:20 | Emergency (ER) | payer OTHER, MEDICAID ==
[~2019-05-11] VITALS: Ht 170.2 cm; Wt 77.1 kg
[~2019-05-11 19:20] MED LIST changes: -ATRMDI INH; +RIVA20TA GT; +SSREG SUBCUT
[2019-05-11 20:00] VITALS: BP_SYST 113
--- NOTE | 2019-05-11 20:00 | NUR ---
Placed in room 03. Placed on equipment monitor phototypesetting, blood pressure machine and pulse oximeter. To gown for exam. Side rails up.
--- NOTE | 2019-05-11 20:00 | NUR ---
Pt BIB BLS from [facility], placed to ER bed 03, triaged at bedside and report given to ROHINI Tinajero.
--- NOTE | 2019-05-11 20:00 | NUR ---
Pt BIB EMS from [facility] with c/o rectal bleeding. Pt A&Ox1. Per facility, pt had one episode of bright red bleeding from rectum today around 4 pm. Pt BP upon arrival is 113/62. Pt skin intact, warm to touch, color WNL. Pt breath sounds bilaterally clear with no use of accessory muscles. Will continue to monitor.
--- NOTE | 2019-05-11 20:18 | NUR ---
ER Dr. Mcgregor at bedside examining patient.
[2019-05-11] MEDS ORDERED: NACL 0.9% 1,000 ML IV ONE (20:22)
--- NOTE | 2019-05-11 20:35 | NUR ---
Radiology at bedside.
--- NOTE | 2019-05-11 20:36 | NUR ---
Lab at bedside.
[2019-05-11 20:47] LABS: BASOPHILS # (AUTO) 0.1 K/uL (0.0-0.2); BASOPHILS % (AUTO) 0.7 % (0.0-2.0); EOSINOPHILS # (AUTO) 0.4 K/uL (0.0-0.4); EOSINOPHILS % (AUTO) 3.9 % (0.0-4.0); HEMATOCRIT 39.4 % (36-54); HEMOGLOBIN 13.3 g/dL (14.0-18.0); LYMPHOCYTES % (AUTO) 20.5 % (20.5-51.5); MEAN CORPUSCULAR HEMOGLOBIN 34 pg (27-31); MEAN CORPUSCULAR HGB CONC 34 % (32-36); MEAN CORPUSCULAR VOLUME 100 fL (79.0-98.0); MONOCYTES # (AUTO) 0.7 K/uL (0.0-1.0); MONOCYTES % (AUTO) 7.3 % (1.7-9.3); NEUTROPHILS # (AUTO) 6.5 K/uL (1.8-7.7); NEUTROPHILS % (AUTO) 67.6 % (40.0-70.0); PLATELET COUNT (AUTO) 225 K/uL (130-430); RED BLOOD CELL COUNT(AUTO) 3.97 MIL/uL (4.2-6.2); RED CELL DISTRIBUTION WIDTH 14.8 % (9.0-15.0); WHITE BLOOD COUNT (AUTO) 9.6 K/uL (4.8-10.8)
[2019-05-11 20:59] LABS: ANION GAP 8 (5-15); CALCIUM 8.4 mg/dL (8.4-11.0); CHLORIDE 100 mmol/L (98-107); CREATININE 0.68 mg/dL (0.55-1.30); GLUCOSE 85 mg/dL (70-99); POTASSIUM 3.7 mmol/L (3.5-5.1); SODIUM SERUM 139 mmol/L (136-145); UREA NITROGEN, BLOOD 28 mg/dL (8-21)
[2019-05-11 21:04] LABS: ALANINE AMINOTRANSFERASE 41 U/L (12-78); ALBUMIN 2.7 g/dL (3.4-4.8); ASPARTATE AMINOTRANSFERASE 28 U/L (10-37); TOTAL BILIRUBIN 0.5 mg/dL (0.0-1.0)
[2019-05-11 21:11] LABS: PROTHROMBIN TIME 10.5 SECS (9.5-12.5)
--- NOTE | 2019-05-11 22:18 | NUR ---
Pt resting in bed with no complaints.
[2019-05-12 00:20] VITALS: BP_SYST 100
== END 2019-05-12 00:20 | disposition home or self-care (01) ==
LOC: SED 19:20
DX: K62.5 Hemorrhage of anus and rectum (principal); J44.9 Chronic obstructive pulmonary disease, unspecified; E11.9 Type 2 diabetes mellitus without complications; Z88.8 Allergy status to other drugs, medicaments and biological substances; Z79.899 Other long term (current) drug therapy
CPT/HCPCS: 36415; 71045; 80053; 82272; 85025; 85610; 85730; 93005; 99285; J7030

== ENCOUNTER 2019-05-21 00:10 | Inpatient (IN) | payer OTHER, MEDICAID ==
[~2019-05-21] VITALS: Ht 170.2 cm; Wt 71.7 kg
[2019-05-21] VITALS (7 sets, daily range): BP systolic 99–113
[~2019-05-21 00:10] MED LIST changes: -LEVA1.2527 NEB
[2019-05-21 00:44] LABS: BASOPHILS % (AUTO) 0.3 % (0.0-2.0); EOSINOPHILS % (AUTO) 0.1 % (0.0-4.0); HEMATOCRIT 39.3 % (36-54); HEMOGLOBIN 12.9 g/dL (14.0-18.0); LYMPHOCYTES # (AUTO) 1.5 K/uL (1.0-5.5); LYMPHOCYTES % (AUTO) 13.6 % (20.5-51.5); MEAN CORPUSCULAR HEMOGLOBIN 33 pg (27-31); MEAN CORPUSCULAR HGB CONC 33 % (32-36); MEAN CORPUSCULAR VOLUME 100 fL (79.0-98.0); MONOCYTES # (AUTO) 0.8 K/uL (0.0-1.0); MONOCYTES % (AUTO) 7.3 % (1.7-9.3); NEUTROPHILS # (AUTO) 8.5 K/uL (1.8-7.7); NEUTROPHILS % (AUTO) 78.7 % (40.0-70.0); PLATELET COUNT (AUTO) 149 K/uL (130-430); RED BLOOD CELL COUNT(AUTO) 3.93 MIL/uL (4.2-6.2); WHITE BLOOD COUNT (AUTO) 10.7 K/uL (4.8-10.8)
[2019-05-21 00:57] LABS: ANION GAP 6 (5-15); CALCIUM 8.2 mg/dL (8.4-11.0); CHLORIDE 105 mmol/L (98-107); CREATININE 0.68 mg/dL (0.55-1.30); GLUCOSE 94 mg/dL (70-99); POTASSIUM 4.3 mmol/L (3.5-5.1); SODIUM SERUM 141 mmol/L (136-145); UREA NITROGEN, BLOOD 35 mg/dL (8-21)
[2019-05-21 01:02] LABS: INR 1.1 (0.80-1.20); PROTHROMBIN TIME 11.1 SECS (9.5-12.5)
[2019-05-21 01:03] LABS: ALANINE AMINOTRANSFERASE 50 U/L (12-78); ALBUMIN 2.5 g/dL (3.4-4.8); ASPARTATE AMINOTRANSFERASE 43 U/L (10-37); TOTAL BILIRUBIN 0.4 mg/dL (0.0-1.0)
[2019-05-21 01:36] LABS: BILIRUBIN,URINE 1+ (NEGATIVE); BLOOD, URINE 3+ (NEGATIVE); CLARITY/URINE SL CLOUDY (CLEAR); COLOR,URINE BROWN (YELLOW); GLUCOSE,URINE NEGATIVE (NEGATIVE); KETONES,URINE NEGATIVE (NEGATIVE); LEUKOCYTE ESTERASE ,URINE 3+ (NEGATIVE); NITRITE, URINE POSITIVE (NEGATIVE); PH,URINE 8.5 (5.0-8.0); PROTEIN URINE 2+ (NEGATIVE)
[2019-05-21 01:48] LABS: BACTERIA,URINE MANY /HPF (None Seen); RBC,URINE >100 /HPF (0-3); WBC,URINE >100 /HPF (0-3); YEAST,URINE Few /HPF (None Seen)
[2019-05-21] MEDS ORDERED: cefTRIAXone 1 GM IVPB PREMIX 50 ML IV ONE (02:00)
[2019-05-21] MEDS ORDERED: FLUCONAZOLE 200 MG TABLET (DIFLUCAN) PO ONE (02:00)
[2019-05-21] MEDS ORDERED: NS 500 ML IV ONE (03:30)
[2019-05-21] MEDS ORDERED: KCL 20 mEq in D5/0.45NS 1000mL 1,000 ML IV ONE ×2 (03:45→05:30)
[2019-05-21] MEDS: CEFEPIME 1 GM in D5W 50 ML IV SCH ×2 (09:00→21:57)
[2019-05-21] MEDS ORDERED: ACETAMINOPHEN 650 MG/20.3 ML UDC GT PRN (13:45)
[2019-05-21] MEDS ORDERED: LevALBUTEROL HCL 1.25 MG/0.5 ML *CONC.* VIAL.NEB (XOPENEX CONC.) INH PRN (13:45)
[2019-05-21] MEDS ORDERED: RIVAROXABAN 10 MG TABLET GT ONE ×2 (14:00→15:30)
[2019-05-21] MEDS ORDERED: RIVAROXABAN 10 MG TABLET PO ONE (14:00)
[2019-05-21] MEDS ORDERED: FAMOTIDINE 20 MG TABLET GT ONE ×2 (14:00→15:30)
[2019-05-21] MEDS ORDERED: PREDNISONE 10 MG TABLET GT ONE ×2 (14:00→15:30)
[2019-05-21] MEDS ORDERED: METOPROLOL TARTRATE 25 MG TABLET GT ONE ×2 (14:00→15:30)
[2019-05-21] MEDS ORDERED: DOCUSATE SODIUM 100 MG/10 ML UDC GT ONE ×2 (14:00→15:30)
[2019-05-21] MEDS ORDERED: CLOTRIMAZOLE/BETAMET DIPROP 15 GM TUBE TP ONE ×2 (15:00→15:15)
[2019-05-21] MEDS: LevALBUTEROL HCL 1.25 MG/0.5 ML *CONC.* VIAL.NEB (XOPENEX CONC.) INH SCH ×2 (15:24→23:51)
[2019-05-21] MEDS: MEROPENEM 500 MG in NS 50 ML IV SCH ×2 (17:22→23:01)
[2019-05-21] MEDS: DOCUSATE SODIUM 100 MG/10 ML UDC GT SCH (22:02)
[2019-05-21] MEDS: PREDNISONE 10 MG TABLET GT SCH (22:02)
[2019-05-21] MEDS: ATORVASTATIN 20 MG TABLET GT SCH (22:02)
[2019-05-21] MEDS: CLOTRIMAZOLE/BETAMET DIPROP 15 GM TUBE TP SCH (22:03)
[2019-05-22 00:37] VITALS: BP_SYST 97
[2019-05-22] MEDS: MEROPENEM 500 MG in NS 50 ML IV SCH ×3 (06:26→23:14)
[2019-05-22] MEDS: LevALBUTEROL HCL 1.25 MG/0.5 ML *CONC.* VIAL.NEB (XOPENEX CONC.) INH SCH ×3 (07:25→22:49)
[2019-05-22 08:10] VITALS: BP_SYST 92
[2019-05-22] MEDS: METOPROLOL TARTRATE 25 MG TABLET GT SCH (09:00)
[2019-05-22] MEDS ORDERED: RIVAROXABAN 10 MG TABLET PO SCH (09:00)
[2019-05-22] MEDS: PREDNISONE 10 MG TABLET GT SCH ×2 (09:42→20:47)
[2019-05-22] MEDS: DOCUSATE SODIUM 100 MG/10 ML UDC GT SCH ×2 (09:42→20:47)
[2019-05-22] MEDS: RIVAROXABAN 10 MG TABLET GT SCH (09:42)
[2019-05-22] MEDS: FAMOTIDINE 20 MG TABLET GT SCH (09:42)
[2019-05-22] MEDS: CEFEPIME 1 GM in D5W 50 ML IV SCH ×2 (09:43→20:48)
[2019-05-22] MEDS: CLOTRIMAZOLE/BETAMET DIPROP 15 GM TUBE TP SCH ×2 (09:44→20:49)
[2019-05-22 12:38] VITALS: BP_SYST 105
[2019-05-22 17:06] VITALS: BP_SYST 120
[2019-05-22 20:00] VITALS: BP_SYST 98
[2019-05-22] MEDS: ATORVASTATIN 20 MG TABLET GT SCH (20:47)
[2019-05-22] MEDS: MUPIROCIN 2% TOPICAL OINTMENT 22 GM NS SCH (20:48)
[2019-05-22] MEDS ORDERED: NS 500 ML IV ONE (22:45)
[2019-05-22] MEDS: NACL 0.9% 1,000 ML IV SCH (22:51)
[2019-05-23 00:06] VITALS: BP_SYST 113
[2019-05-23 05:48] LABS: BASOPHILS % (AUTO) 0.4 % (0.0-2.0); EOSINOPHILS % (AUTO) 0.6 % (0.0-4.0); HEMATOCRIT 33.9 % (36-54); HEMOGLOBIN 11.1 g/dL (14.0-18.0); LYMPHOCYTES # (AUTO) 1.1 K/uL (1.0-5.5); LYMPHOCYTES % (AUTO) 17.7 % (20.5-51.5); MEAN CORPUSCULAR HEMOGLOBIN 33 pg (27-31); MEAN CORPUSCULAR HGB CONC 33 % (32-36); MEAN CORPUSCULAR VOLUME 101 fL (79.0-98.0); MONOCYTES # (AUTO) 0.4 K/uL (0.0-1.0); MONOCYTES % (AUTO) 6.8 % (1.7-9.3); NEUTROPHILS # (AUTO) 4.8 K/uL (1.8-7.7); NEUTROPHILS % (AUTO) 74.5 % (40.0-70.0); PLATELET COUNT (AUTO) 102 K/uL (130-430); RED BLOOD CELL COUNT(AUTO) 3.35 MIL/uL (4.2-6.2); RED CELL DISTRIBUTION WIDTH 15.4 % (9.0-15.0); WHITE BLOOD COUNT (AUTO) 6.5 K/uL (4.8-10.8)
[2019-05-23 05:59] LABS: ANION GAP 7 (5-15); CALCIUM 8.2 mg/dL (8.4-11.0); CHLORIDE 106 mmol/L (98-107); CREATININE 0.57 mg/dL (0.55-1.30); GLUCOSE 105 mg/dL (70-99); POTASSIUM 4.3 mmol/L (3.5-5.1); SODIUM SERUM 137 mmol/L (136-145); UREA NITROGEN, BLOOD 22 mg/dL (8-21)
[2019-05-23] MEDS: MEROPENEM 500 MG in NS 50 ML IV SCH ×3 (06:02→22:46)
[2019-05-23] MEDS: LevALBUTEROL HCL 1.25 MG/0.5 ML *CONC.* VIAL.NEB (XOPENEX CONC.) INH SCH ×3 (07:29→23:39)
[2019-05-23 08:20] VITALS: BP_SYST 95
[2019-05-23] MEDS: METOPROLOL TARTRATE 25 MG TABLET GT SCH (09:00)
[2019-05-23] MEDS: NACL 0.9% 1,000 ML IV SCH ×2 (10:07→21:11)
[2019-05-23] MEDS: DOCUSATE SODIUM 100 MG/10 ML UDC GT SCH ×2 (10:07→21:11)
[2019-05-23] MEDS: MUPIROCIN 2% TOPICAL OINTMENT 22 GM NS SCH ×2 (10:07→21:12)
[2019-05-23] MEDS: PREDNISONE 10 MG TABLET GT SCH ×2 (10:07→21:11)
[2019-05-23] MEDS: FAMOTIDINE 20 MG TABLET GT SCH (10:08)
[2019-05-23] MEDS: CLOTRIMAZOLE/BETAMET DIPROP 15 GM TUBE TP SCH ×2 (10:11→21:12)
[2019-05-23] MEDS: RIVAROXABAN 10 MG TABLET GT SCH (10:11)
[2019-05-23 12:00] VITALS: BP_SYST 103
[2019-05-23 16:10] VITALS: BP_SYST 101
[2019-05-23 19:00] VITALS: BP_SYST 103
[2019-05-23 20:00] VITALS: BP_SYST 103
[2019-05-23] MEDS: ATORVASTATIN 20 MG TABLET GT SCH (21:11)
[2019-05-24 00:26] VITALS: BP_SYST 111
[2019-05-24] MEDS: NACL 0.9% 1,000 ML IV SCH ×2 (04:30→14:47)
[2019-05-24] MEDS: MEROPENEM 500 MG in NS 50 ML IV SCH ×2 (06:10→14:48)
[2019-05-24 06:16] LABS: BASOPHILS % (AUTO) 0.3 % (0.0-2.0); EOSINOPHILS % (AUTO) 0.6 % (0.0-4.0); HEMATOCRIT 33.9 % (36-54); HEMOGLOBIN 11.2 g/dL (14.0-18.0); LYMPHOCYTES # (AUTO) 0.8 K/uL (1.0-5.5); LYMPHOCYTES % (AUTO) 14.2 % (20.5-51.5); MEAN CORPUSCULAR HEMOGLOBIN 33 pg (27-31); MEAN CORPUSCULAR HGB CONC 33 % (32-36); MEAN CORPUSCULAR VOLUME 100 fL (79.0-98.0); MONOCYTES # (AUTO) 0.3 K/uL (0.0-1.0); MONOCYTES % (AUTO) 5.2 % (1.7-9.3); NEUTROPHILS # (AUTO) 4.5 K/uL (1.8-7.7); NEUTROPHILS % (AUTO) 79.7 % (40.0-70.0); PLATELET COUNT (AUTO) 122 K/uL (130-430); RED BLOOD CELL COUNT(AUTO) 3.38 MIL/uL (4.2-6.2); RED CELL DISTRIBUTION WIDTH 14.9 % (9.0-15.0); WHITE BLOOD COUNT (AUTO) 5.7 K/uL (4.8-10.8)
[2019-05-24 06:17] LABS: ANION GAP 2 (5-15); CALCIUM 7.9 mg/dL (8.4-11.0); CHLORIDE 108 mmol/L (98-107); CREATININE 0.55 mg/dL (0.55-1.30); GLUCOSE 112 mg/dL (70-99); POTASSIUM 4.3 mmol/L (3.5-5.1); SODIUM SERUM 134 mmol/L (136-145); UREA NITROGEN, BLOOD 23 mg/dL (8-21)
[2019-05-24] MEDS: LevALBUTEROL HCL 1.25 MG/0.5 ML *CONC.* VIAL.NEB (XOPENEX CONC.) INH SCH (07:36)
[2019-05-24 08:11] VITALS: BP_SYST 111
[2019-05-24] MEDS: FAMOTIDINE 20 MG TABLET GT SCH (08:59)
[2019-05-24] MEDS: PREDNISONE 10 MG TABLET GT SCH (08:59)
[2019-05-24] MEDS: DOCUSATE SODIUM 100 MG/10 ML UDC GT SCH (08:59)
[2019-05-24] MEDS: CLOTRIMAZOLE/BETAMET DIPROP 15 GM TUBE TP SCH (09:00)
[2019-05-24] MEDS: MUPIROCIN 2% TOPICAL OINTMENT 22 GM NS SCH (09:00)
[2019-05-24] MEDS: RIVAROXABAN 10 MG TABLET GT SCH (09:01)
[2019-05-24] MEDS: METOPROLOL TARTRATE 25 MG TABLET GT SCH (09:02)
[2019-05-24 12:16] VITALS: BP_SYST 107
[2019-05-24 15:20] VITALS: BP_SYST 111
[2019-05-24 16:17] VITALS: BP_SYST 119
== END 2019-05-24 18:03 | DRG 689 ==
LOC: SED 00:10 → SMU 03:32 → STU 05-22 23:56
PROVIDERS: ADMIT Family Medicine; ATTEND Family Medicine
DX: N39.0 Urinary tract infection, site not specified (principal); E43 Unspecified severe protein-calorie malnutrition; G93.40 Encephalopathy, unspecified; D68.59 Other primary thrombophilia; E11.9 Type 2 diabetes mellitus without complications; I10 Essential (primary) hypertension; N40.0 Benign prostatic hyperplasia without lower urinary tract symptoms; B96.20 Unspecified Escherichia coli [E. coli] as the cause of diseases classified elsewhere; I48.0 Paroxysmal atrial fibrillation; R31.9 Hematuria, unspecified; J44.9 Chronic obstructive pulmonary disease, unspecified; Z86.73 Personal history of transient ischemic attack (TIA), and cerebral infarction without residual deficits; Z68.27 Body mass index [BMI] 27.0-27.9, adult; Z79.899 Other long term (current) drug therapy; Z93.1 Gastrostomy status
CPT/HCPCS: 36415; 80048; 80053; 81000-TC; 82962; 83605; 83735-TC; 85025; 85610-TC; 85730-TC; 87081; 87086; 87186-TC; 93005; 94640; 94760; 96365; 99285; G0378; J0692; J0696; J2185; J7030; J7040; J7060; J7512; J7612

== ENCOUNTER 2019-06-19 17:40 | Inpatient (IN) | payer OTHER, MEDICAID, SELFPAY ==
[~2019-06-19] VITALS: Ht 182.9 cm; Wt 67.6 kg
[~2019-06-19 17:40] MED LIST changes: -METO25TA6 GT; -RIVA20TA GT
[2019-06-19 17:41] VITALS: BP_SYST 117
[2019-06-19] MEDS ORDERED: NACL 0.9% 1,000 ML IV ONE (17:47)
[2019-06-19] MEDS ORDERED: ALBUTEROL SULFATE 0.083% 2.5 MG/3 ML VIAL.NEB INH ONE (18:00)
[2019-06-19] MEDS ORDERED: cefTRIAXone 1 GM IVPB PREMIX 50 ML IV ONE (18:00)
[2019-06-19] MEDS ORDERED: IPRATROPIUM BROM 0.5 MG/2.5 ML VIAL.NEB (ATROVENT) INH ONE (18:00)
[2019-06-19] MEDS ORDERED: NS 1000 ML IV.SOLN IV ONE (18:00)
[2019-06-19] MEDS ORDERED: methylPREDNISolone SOD SUCC/PF 62.5 MG/ML VIAL IVP ONE (18:00)
[2019-06-19 18:07] LABS: BILIRUBIN,URINE NEGATIVE (NEGATIVE); BLOOD, URINE 3+ (NEGATIVE); CLARITY/URINE CLOUDY (CLEAR); COLOR,URINE YELLOW (YELLOW); GLUCOSE,URINE NEGATIVE (NEGATIVE); KETONES,URINE NEGATIVE (NEGATIVE); LEUKOCYTE ESTERASE ,URINE 3+ (NEGATIVE); NITRITE, URINE POSITIVE (NEGATIVE); PH,URINE 8.5 (5.0-8.0); PROTEIN URINE 2+ (NEGATIVE); UROBILINOGEN,URINE 0.2 (0.2-1.0)
[2019-06-19 18:24] LABS: BACTERIA,URINE MODERATE /HPF (None Seen); MUCUS,URINE None Seen /LPF (None Seen); RBC,URINE 80-100 /HPF (0-3); WBC,URINE >100 /HPF (0-3)
[2019-06-19 18:27] LABS: BARBITURATE, URINE NEGATIVE (NEG <=200); BENZODIAZEPINE, URINE NEGATIVE (NEG <=150); CANNABINOID, URINE NEGATIVE (NEG <=50); COCAINE, URINE NEGATIVE (NEG <=150); METHAMPHETAMINES SCREEN,URINE NEGATIVE (NEG <=500); OPIATE, URINE NEGATIVE (NEG <=100); PHENCYCLIDINE SCREEN,URINE NEGATIVE (NEG <=25); UR TRICYCLIC ANTIDEPRESSANTS NEGATIVE (NEG <=300); URINE AMPHETAMINE NEGATIVE (NEG <=500); URINE METHADONE NEGATIVE (NEG <=200); URINE OXYCODONE SCREEN NEGATIVE (NEG <=100); URINE PROPOXYPHENE SCREEN NEGATIVE (NEG <=300)
[2019-06-19 18:30] LABS: BASOPHILS # (AUTO) 0.1 K/uL (0.0-0.2); BASOPHILS % (AUTO) 0.4 % (0.0-2.0); EOSINOPHILS % (AUTO) 0.3 % (0.0-4.0); HEMATOCRIT 47.9 % (36-54); HEMOGLOBIN 15.5 g/dL (14.0-18.0); LYMPHOCYTES # (AUTO) 1.7 K/uL (1.0-5.5); LYMPHOCYTES % (AUTO) 13.2 % (20.5-51.5); MEAN CORPUSCULAR HEMOGLOBIN 32 pg (27-31); MEAN CORPUSCULAR HGB CONC 32 % (32-36); MEAN CORPUSCULAR VOLUME 100 fL (79.0-98.0); MONOCYTES # (AUTO) 1.3 K/uL (0.0-1.0); MONOCYTES % (AUTO) 9.7 % (1.7-9.3); NEUTROPHILS # (AUTO) 10.1 K/uL (1.8-7.7); NEUTROPHILS % (AUTO) 76.4 % (40.0-70.0); PLATELET COUNT (AUTO) 207 K/uL (130-430); RED BLOOD CELL COUNT(AUTO) 4.79 MIL/uL (4.2-6.2); RED CELL DISTRIBUTION WIDTH 15.4 % (9.0-15.0); WHITE BLOOD COUNT (AUTO) 13.2 K/uL (4.8-10.8)
[2019-06-19 18:50] LABS: ANION GAP 7 (5-15); CALCIUM 8.6 mg/dL (8.4-11.0); CREATININE 1.32 mg/dL (0.55-1.30); GLUCOSE 126 mg/dL (70-99); POTASSIUM 3.8 mmol/L (3.5-5.1); SODIUM SERUM 160 mmol/L (136-145); UREA NITROGEN, BLOOD 67 mg/dL (8-21)
[2019-06-19 18:52] LABS: INR 1.2 (0.80-1.20); PROTHROMBIN TIME 11.8 SECS (9.5-12.5)
[2019-06-19 18:55] LABS: CHLORIDE 121 mmol/L (98-107)
[2019-06-19 18:56] LABS: ALANINE AMINOTRANSFERASE 122 U/L (12-78); ALBUMIN 2.7 g/dL (3.4-4.8); ALCOHOL, BLOOD 3 mg/dL (<10); AMYLASE 32 U/L (0-100); ASPARTATE AMINOTRANSFERASE 86 U/L (10-37); LIPASE 56 U/L (73-393); TOTAL BILIRUBIN 0.5 mg/dL (0.0-1.0)
[2019-06-19 18:59] LABS: ACETAMINOPHEN < 1 ug/mL (1-30)
[2019-06-19] MEDS ORDERED: LevALBUTEROL HCL 1.25 MG/0.5 ML *CONC.* VIAL.NEB (XOPENEX CONC.) INH SCH (19:00)
[2019-06-19] MEDS ORDERED: D5NS 1,000 ML IV SCH (19:00)
[2019-06-19] MEDS ORDERED: ZINC50TA69 PO (19:28)
[2019-06-19] MEDS ORDERED: LEVA1.2527 INH (19:28)
[2019-06-19] MEDS ORDERED: MULT9LIQ PO (19:28)
[2019-06-19] MEDS ORDERED: ASCO500T20 PO (19:28)
[2019-06-19] MEDS ORDERED: AMIN30LI2 PO (19:28)
[2019-06-19] MEDS ORDERED: RIVA10TA PO (19:28)
[2019-06-19] MEDS ORDERED: METO25TA6 GT (19:28)
[2019-06-19 20:15] VITALS: BP_SYST 127
[2019-06-19] MEDS ORDERED: VANCOMYCIN HCL 1 GM/NS PREMIX 250 ML IV ONE (22:15)
[2019-06-19] MEDS ORDERED: INSULIN REGULAR, HUMAN 100 UNITS/ML, 10 ML VIAL (humuLIN R) SUBCUT PRN (22:15)
[2019-06-19] MEDS: FAMOTIDINE 20 MG TABLET GT SCH (23:04)
[2019-06-19] MEDS ORDERED: KCL 20 mEq in 0.45% NS 1000 mL 1,000 ML IV ONE (23:05)
[2019-06-19] MEDS: METOPROLOL TARTRATE 25 MG TABLET GT SCH (23:05)
[2019-06-19] MEDS ORDERED: MEROPENEM 500 MG VIAL IV ONE (23:05)
[2019-06-19] MEDS ORDERED: VANCOMYCIN HCL 1000 MG/VIAL IV ONE (23:05)
[2019-06-19] MEDS: MEROPENEM 500 MG IVPB PREMIX 50 ML IV SCH (23:07)
[2019-06-19] MEDS: methylPREDNISolone SOD SUCC 40 MG/ML VIAL IVP SCH (23:10)
[2019-06-20] MEDS: INSULIN REGULAR, HUMAN 100 UNITS/ML, 10 ML VIAL (humuLIN R) SUBCUT PRN ×2 (00:38→07:00)
[2019-06-20 00:50] VITALS: BP_SYST 112
[2019-06-20] MEDS: methylPREDNISolone SOD SUCC 40 MG/ML VIAL IVP SCH ×3 (05:15→17:24)
[2019-06-20] MEDS: KCL 20 mEq in 0.45% NS 1000 mL 1,000 ML IV SCH ×2 (05:15→17:24)
[2019-06-20] MEDS: MEROPENEM 500 MG IVPB PREMIX 50 ML IV SCH ×3 (05:16→20:52)
[2019-06-20 07:24] LABS: BASOPHILS % (AUTO) 0.2 % (0.0-2.0); HEMATOCRIT 41.7 % (36-54); HEMOGLOBIN 13.2 g/dL (14.0-18.0); LYMPHOCYTES # (AUTO) 0.7 K/uL (1.0-5.5); LYMPHOCYTES % (AUTO) 8.3 % (20.5-51.5); MEAN CORPUSCULAR HEMOGLOBIN 32 pg (27-31); MEAN CORPUSCULAR HGB CONC 32 % (32-36); MEAN CORPUSCULAR VOLUME 101 fL (79.0-98.0); MONOCYTES # (AUTO) 0.2 K/uL (0.0-1.0); MONOCYTES % (AUTO) 2.4 % (1.7-9.3); NEUTROPHILS # (AUTO) 7.7 K/uL (1.8-7.7); NEUTROPHILS % (AUTO) 89.1 % (40.0-70.0); PLATELET COUNT (AUTO) 171 K/uL (130-430); RED BLOOD CELL COUNT(AUTO) 4.14 MIL/uL (4.2-6.2); RED CELL DISTRIBUTION WIDTH 15.3 % (9.0-15.0); WHITE BLOOD COUNT (AUTO) 8.6 K/uL (4.8-10.8)
[2019-06-20 07:41] LABS: ANION GAP 10 (5-15); CALCIUM 7.6 mg/dL (8.4-11.0); CREATININE 1.05 mg/dL (0.55-1.30); GLUCOSE 236 mg/dL (70-99); POTASSIUM 3.3 mmol/L (3.5-5.1); UREA NITROGEN, BLOOD 61 mg/dL (8-21)
[2019-06-20 08:00] VITALS: BP_SYST 108
[2019-06-20 08:20] LABS: SODIUM SERUM 161 mmol/L (136-145)
[2019-06-20 08:21] LABS: CHLORIDE 125 mmol/L (98-107)
[2019-06-20] MEDS: ZINC 50 MG PO SCH (09:00)
[2019-06-20] MEDS: MULTIVIT-MINERALS/FERROUS GLUC 15 ML UDC PO SCH (09:25)
[2019-06-20] MEDS: ASCORBIC ACID 500 MG TABLET PO SCH (09:25)
[2019-06-20] MEDS: DOCUSATE SODIUM 100 MG CAPSULE PO SCH ×2 (09:25→20:52)
[2019-06-20] MEDS: RIVAROXABAN 10 MG TABLET PO SCH (09:25)
[2019-06-20] MEDS: FAMOTIDINE 20 MG TABLET GT SCH (09:25)
[2019-06-20] MEDS: METOPROLOL TARTRATE 25 MG TABLET GT SCH (09:25)
[2019-06-20] MEDS: VANCOMYCIN HCL 1,500 MG in NS 250 ML IV SCH (11:26)
[2019-06-20] MEDS ORDERED: POTASSIUM CHLORIDE 20 MEQ/PKT PACKET GT ONE (11:30)
[2019-06-20 12:00] VITALS: BP_SYST 91
[2019-06-20 16:00] VITALS: BP_SYST 99
[2019-06-20] MEDS: LevALBUTEROL HCL 1.25 MG/0.5 ML *CONC.* VIAL.NEB (XOPENEX CONC.) INH SCH (16:17)
[2019-06-20 20:00] VITALS: BP_SYST 98
[2019-06-20] MEDS: ATORVASTATIN 20 MG TABLET GT SCH (20:52)
[2019-06-21] VITALS: BP_SYST 112
[2019-06-21] MEDS: methylPREDNISolone SOD SUCC 40 MG/ML VIAL IVP SCH ×5 (00:13→23:25)
[2019-06-21] MEDS: KCL 20 mEq in 0.45% NS 1000 mL 1,000 ML IV SCH ×3 (02:00→23:26)
[2019-06-21] MEDS: MEROPENEM 500 MG IVPB PREMIX 50 ML IV SCH (05:08)
[2019-06-21 08:06] VITALS: BP_SYST 116
[2019-06-21 08:49] LABS: BASOPHILS % (AUTO) 0.2 % (0.0-2.0); HEMATOCRIT 41.7 % (36-54); HEMOGLOBIN 12.8 g/dL (14.0-18.0); LYMPHOCYTES # (AUTO) 0.9 K/uL (1.0-5.5); MEAN CORPUSCULAR HEMOGLOBIN 32 pg (27-31); MEAN CORPUSCULAR HGB CONC 31 % (32-36); MEAN CORPUSCULAR VOLUME 104 fL (79.0-98.0); MONOCYTES # (AUTO) 0.3 K/uL (0.0-1.0); MONOCYTES % (AUTO) 2.5 % (1.7-9.3); NEUTROPHILS # (AUTO) 11.2 K/uL (1.8-7.7); NEUTROPHILS % (AUTO) 90.3 % (40.0-70.0); PLATELET COUNT (AUTO) 146 K/uL (130-430); RED CELL DISTRIBUTION WIDTH 15.9 % (9.0-15.0); WHITE BLOOD COUNT (AUTO) 12.3 K/uL (4.8-10.8)
[2019-06-21] MEDS: ZINC 50 MG PO SCH (09:00)
[2019-06-21] MEDS: DOCUSATE SODIUM 100 MG CAPSULE PO SCH ×2 (09:00→20:28)
[2019-06-21 09:22] LABS: ANION GAP 9 (5-15); CALCIUM 8.2 mg/dL (8.4-11.0); CREATININE 1.02 mg/dL (0.55-1.30); GLUCOSE 154 mg/dL (70-99); POTASSIUM 4.8 mmol/L (3.5-5.1); SODIUM SERUM 156 mmol/L (136-145); UREA NITROGEN, BLOOD 56 mg/dL (8-21)
[2019-06-21 09:28] LABS: CHLORIDE 123 mmol/L (98-107)
[2019-06-21] MEDS: ASCORBIC ACID 500 MG TABLET PO SCH (09:35)
[2019-06-21] MEDS: FAMOTIDINE 20 MG TABLET GT SCH (09:35)
[2019-06-21] MEDS: RIVAROXABAN 10 MG TABLET PO SCH (09:38)
[2019-06-21] MEDS: METOPROLOL TARTRATE 25 MG TABLET GT SCH (09:39)
[2019-06-21] MEDS: MULTIVIT-MINERALS/FERROUS GLUC 15 ML UDC PO SCH (12:40)
[2019-06-21] MEDS: VANCOMYCIN HCL 1,500 MG in NS 250 ML IV SCH (12:41)
[2019-06-21 12:44] VITALS: BP_SYST 120
[2019-06-21] MEDS ORDERED: MUPIROCIN 2% TOPICAL OINTMENT 22 GM NS ONE (13:00)
[2019-06-21] MEDS: cefTRIAXone 1 GM in D5W 50 ML IV SCH (14:12)
[2019-06-21] MEDS: BISACODYL 10 MG/SUPPOSITORY RC ONE ×2 (15:02→15:27)
[2019-06-21 18:16] VITALS: BP_SYST 140
[2019-06-21 20:00] VITALS: BP_SYST 112
[2019-06-21] MEDS: MUPIROCIN 2% TOPICAL OINTMENT 22 GM NS SCH ×2 (20:27→20:41)
[2019-06-21] MEDS: ATORVASTATIN 20 MG TABLET GT SCH (20:28)
[2019-06-21] MEDS ORDERED: MUPIROCIN 1 GM OIN.PF.APP NS SCH (21:00)
[2019-06-21] MEDS ORDERED: KCL 20 mEq in 0.45% NS 1000 mL 1,000 ML IV ONE (23:00)
[2019-06-22 00:33] VITALS: BP_SYST 115
[2019-06-22] MEDS: methylPREDNISolone SOD SUCC 40 MG/ML VIAL IVP SCH ×3 (05:57→18:22)
[2019-06-22] MEDS: ZINC 50 MG PO SCH (09:00)
[2019-06-22] MEDS: ASCORBIC ACID 500 MG TABLET PO SCH (10:16)
[2019-06-22] MEDS: MUPIROCIN 2% TOPICAL OINTMENT 22 GM NS SCH ×2 (10:16→21:19)
[2019-06-22] MEDS: FAMOTIDINE 20 MG TABLET GT SCH (10:16)
[2019-06-22] MEDS: DOCUSATE SODIUM 100 MG CAPSULE PO SCH ×2 (10:16→21:18)
[2019-06-22] MEDS: RIVAROXABAN 10 MG TABLET PO SCH (10:18)
[2019-06-22] MEDS: METOPROLOL TARTRATE 25 MG TABLET GT SCH (10:19)
[2019-06-22] MEDS: MULTIVIT-MINERALS/FERROUS GLUC 15 ML UDC PO SCH (10:24)
[2019-06-22] MEDS: KCL 20 mEq in 0.45% NS 1000 mL 1,000 ML IV SCH ×2 (10:33→21:17)
[2019-06-22 12:00] VITALS: BP_SYST 129
[2019-06-22] MEDS: VANCOMYCIN HCL 1,500 MG in NS 250 ML IV SCH (12:05)
[2019-06-22] MEDS: cefTRIAXone 1 GM in D5W 50 ML IV SCH (15:12)
[2019-06-22 16:10] VITALS: BP_SYST 115
[2019-06-22] MEDS: AMPICILLIN SODIUM/SULBACTAM NA 1.5 GM in NS 50 ML IV SCH (18:22)
[2019-06-22] MEDS: ATORVASTATIN 20 MG TABLET GT SCH (21:18)
[2019-06-23 00:22] VITALS: BP_SYST 133
[2019-06-23] MEDS: methylPREDNISolone SOD SUCC 40 MG/ML VIAL IVP SCH ×5 (00:23→23:46)
[2019-06-23] MEDS: AMPICILLIN SODIUM/SULBACTAM NA 1.5 GM in NS 50 ML IV SCH ×5 (00:23→23:46)
[2019-06-23] MEDS: KCL 20 mEq in 0.45% NS 1000 mL 1,000 ML IV SCH ×2 (05:46→15:00)
[2019-06-23] MEDS: LEVALBUTEROL Tartrate 15 GM HFA. 45 mCg/Actuation INH SCH ×5 (07:00→23:00)
[2019-06-23] MEDS: ZINC 50 MG PO SCH (09:00)
[2019-06-23 09:02] VITALS: BP_SYST 128
[2019-06-23] MEDS: RIVAROXABAN 10 MG TABLET PO SCH (09:10)
[2019-06-23] MEDS: ASCORBIC ACID 500 MG TABLET PO SCH (09:11)
[2019-06-23] MEDS: DOCUSATE SODIUM 100 MG CAPSULE PO SCH ×2 (09:11→20:13)
[2019-06-23] MEDS: METOPROLOL TARTRATE 25 MG TABLET GT SCH (09:11)
[2019-06-23] MEDS: FAMOTIDINE 20 MG TABLET GT SCH (09:11)
[2019-06-23] MEDS: MULTIVIT-MINERALS/FERROUS GLUC 15 ML UDC PO SCH (09:12)
[2019-06-23] MEDS: MUPIROCIN 2% TOPICAL OINTMENT 22 GM NS SCH ×2 (09:15→20:14)
[2019-06-23 12:21] VITALS: BP_SYST 138
[2019-06-23 16:25] VITALS: BP_SYST 132
[2019-06-23 20:00] VITALS: BP_SYST 139
[2019-06-23] MEDS: ATORVASTATIN 20 MG TABLET GT SCH (20:13)
[2019-06-24 00:10] VITALS: BP_SYST 134
[2019-06-24] MEDS: KCL 20 mEq in 0.45% NS 1000 mL 1,000 ML IV SCH ×2 (01:49→12:05)
[2019-06-24] MEDS: LEVALBUTEROL Tartrate 15 GM HFA. 45 mCg/Actuation INH SCH ×4 (03:00→15:00)
[2019-06-24] MEDS: methylPREDNISolone SOD SUCC 40 MG/ML VIAL IVP SCH ×3 (05:10→17:06)
[2019-06-24] MEDS: AMPICILLIN SODIUM/SULBACTAM NA 1.5 GM in NS 50 ML IV SCH ×3 (05:10→17:05)
[2019-06-24 06:49] LABS: ANION GAP 6 (5-15); CALCIUM 7.5 mg/dL (8.4-11.0); CHLORIDE 117 mmol/L (98-107); CREATININE 0.78 mg/dL (0.55-1.30); GLUCOSE 136 mg/dL (70-99); POTASSIUM 4.5 mmol/L (3.5-5.1); SODIUM SERUM 149 mmol/L (136-145); UREA NITROGEN, BLOOD 38 mg/dL (8-21)
[2019-06-24 06:51] LABS: BASOPHILS % (AUTO) 0.1 % (0.0-2.0); HEMATOCRIT 40.1 % (36-54); LYMPHOCYTES # (AUTO) 0.6 K/uL (1.0-5.5); LYMPHOCYTES % (AUTO) 7.5 % (20.5-51.5); MEAN CORPUSCULAR HEMOGLOBIN 32 pg (27-31); MEAN CORPUSCULAR HGB CONC 32 % (32-36); MEAN CORPUSCULAR VOLUME 100 fL (79.0-98.0); MONOCYTES # (AUTO) 0.3 K/uL (0.0-1.0); MONOCYTES % (AUTO) 3.7 % (1.7-9.3); NEUTROPHILS # (AUTO) 7.1 K/uL (1.8-7.7); NEUTROPHILS % (AUTO) 88.7 % (40.0-70.0); PLATELET COUNT (AUTO) 150 K/uL (130-430); RED BLOOD CELL COUNT(AUTO) 4.02 MIL/uL (4.2-6.2); RED CELL DISTRIBUTION WIDTH 14.7 % (9.0-15.0)
[2019-06-24] MEDS: ZINC 50 MG PO SCH (09:00)
[2019-06-24] MEDS: MULTIVIT-MINERALS/FERROUS GLUC 15 ML UDC PO SCH (09:22)
[2019-06-24] MEDS: ASCORBIC ACID 500 MG TABLET PO SCH (09:23)
[2019-06-24] MEDS: FAMOTIDINE 20 MG TABLET GT SCH (09:23)
[2019-06-24] MEDS: DOCUSATE SODIUM 100 MG CAPSULE PO SCH (09:23)
[2019-06-24] MEDS: MUPIROCIN 2% TOPICAL OINTMENT 22 GM NS SCH (09:23)
[2019-06-24] MEDS: RIVAROXABAN 10 MG TABLET PO SCH (09:24)
[2019-06-24] MEDS: METOPROLOL TARTRATE 25 MG TABLET GT SCH (09:24)
[2019-06-24 09:46] VITALS: BP_SYST 137
[2019-06-24] MEDS: LevALBUTEROL HCL 1.25 MG/0.5 ML *CONC.* VIAL.NEB (XOPENEX CONC.) INH SCH (12:19)
[2019-06-24 12:39] VITALS: BP_SYST 146
[2019-06-24 15:51] VITALS: BP_SYST 124
[2019-06-24 16:06] VITALS: BP_SYST 124
[2019-06-24 16:45] VITALS: BP_SYST 135
[2019-06-24] MEDS ORDERED: LACTOBACILLUS RHAMNOSUS GG 1 CAP CAPSULE PO ONE (17:00)
[2019-06-25] MEDS ORDERED: LACTOBACILLUS RHAMNOSUS GG 1 CAP CAPSULE PO SCH (09:00)
== END 2019-06-24 20:10 | DRG 720 ==
LOC: SED 17:40 → EEVIPCON 17:40 → STU 18:52
PROVIDERS: ADMIT Family Medicine; ATTEND Family Medicine
DX: A41.9 Sepsis, unspecified organism (principal); J69.0 Pneumonitis due to inhalation of food and vomit; E43 Unspecified severe protein-calorie malnutrition; J96.21 Acute and chronic respiratory failure with hypoxia; N17.9 Acute kidney failure, unspecified; G93.41 Metabolic encephalopathy; E87.0 Hyperosmolality and hypernatremia; J44.9 Chronic obstructive pulmonary disease, unspecified; B96.4 Proteus (mirabilis) (morganii) as the cause of diseases classified elsewhere; I48.91 Unspecified atrial fibrillation; Z20.828 Contact with and (suspected) exposure to other viral communicable diseases; E11.22 Type 2 diabetes mellitus with diabetic chronic kidney disease; N30.90 Cystitis, unspecified without hematuria; E86.0 Dehydration; F03.90 Unspecified dementia, unspecified severity, without behavioral disturbance, psychotic disturbance, mood disturbance, and anxiety; R65.20 Severe sepsis without septic shock; I13.0 Hypertensive heart and chronic kidney disease with heart failure and stage 1 through stage 4 chronic kidney disease, or unspecified chronic kidney disease; N40.0 Benign prostatic hyperplasia without lower urinary tract symptoms; Z66 Do not resuscitate; Z86.73 Personal history of transient ischemic attack (TIA), and cerebral infarction without residual deficits; Z68.20 Body mass index [BMI] 20.0-20.9, adult; Z88.8 Allergy status to other drugs, medicaments and biological substances; Z86.718 Personal history of other venous thrombosis and embolism; Z93.1 Gastrostomy status
CPT/HCPCS: 36415; 36600; 71045; 80048; 80053; 80202-TC; 80307; 81000-TC; 82150-TC; 82550-TC; 82803-TC; 82962; 83605; 83690-TC; 83735-TC; 83880; 84484; 85025; 85610-TC; 85730-TC; 86710; 87040-TC; 87081; 87086; 87186-TC; 93005; 94640; 94760; 96365; 96375; 99285; G0378; G0480; G0481; G0482; J0295; J0696; J1030; J1815; J2185; J2930; J3370; J3480; J7042; J7050; J7060; J7612; J7613; U0002